=== PATIENT | female | born 1940 | race Caucasian/White ===

== ENCOUNTER 2016-06-21 08:26 | Day surgery (SDC) | payer MEDICARE, OTHER ==
[2016-06-21] MEDS ORDERED: Lactated Ringers 1,000 ML IV SCH (09:00)
[2016-06-21] MEDS ORDERED: fentaNYL 100 MCG/2 ML SDV ONE (09:23)
[2016-06-21] MEDS ORDERED: Propofol 200 MG/20 ML SDV ONE ×2 (09:23→10:39)
[2016-06-21 12:49] VITALS: BP 146/82
--- NOTE | 2016-06-22 07:30 | OR ---
DATE OF PROCEDURE: 06/21/2016 POSTOPERATIVE DIAGNOSES: History of colon polyps. POSTOPERATIVE DIAGNOSIS: Diverticulosis, proximal right colon polyps, history of colon polyps. PROCEDURE PERFORMED: Colonoscopy to the cecum with biopsy resection of sessile proximal right colon polyp and tattoo of site. ANESTHESIA: IV anesthesia with monitored anesthesia care. INDICATION: This 76-year-old white female is here for a colonoscopy because of a history of colon polyps. She says her last colonoscopic exam was done three years ago. I counseled her for a colonoscopy with possible biopsy and/or polypectomy including risks and alternatives, and she gave her informed consent to proceed. DESCRIPTION OF PROCEDURE: The patient was placed in the left lateral decubitus position. IV anesthesia was administered by the Anesthesia Service. Time-out was held. A rectal exam was performed, which was unremarkable. The flexible video Olympus colonoscope was introduced through her anus, up her rectum, and out her colon all the way to the cecum. In the proximal right colon, we saw a sessile polyp. We used a biopsy forceps to remove much of it. We then tattooed the area with Keena ink. The scope was then slowly withdrawn examining the mucosa throughout. No additional mucosal abnormalities were noted. The scope was retroflexed in the rectum with the distal rectum appearing unremarkable save for some hemorrhoidal tissue. The scope was straightened and removed. She tolerated the procedure well. Narinder Gonsalez MD /[id number] [facility]
== END 2016-06-21 12:50 | disposition home or self-care (01) ==
LOC: JP.SDS 08:26
PROVIDERS: ATTEND Surgery
DX: Z12.11 Encounter for screening for malignant neoplasm of colon (principal); D12.6 Benign neoplasm of colon, unspecified; J44.9 Chronic obstructive pulmonary disease, unspecified; Z88.0 Allergy status to penicillin; Z88.2 Allergy status to sulfonamides; Z91.040 Latex allergy status
CPT/HCPCS: 45380; 88305; J2704; J3010; J7120

== ENCOUNTER 2017-08-13 20:25 | Emergency (ER) | payer MEDICARE, OTHER ==
--- NOTE | 2017-08-13 20:43 | EDM.PDOC ---
ED HPI GENERAL MEDICAL PROBLEM - General Chief Complaint: Cardiovascular Problem Stated Complaint: ILLNESS Time Seen by Provider: 08/13/17 20:39 Source of Information: Reports: Patient, Family, RN Notes Reviewed History Limitations: Reports: No Limitations - History of Present Illness INITIAL COMMENTS - FREE TEXT/NARRATIVE: 77-year-old female presents to the emergency department today with complaint of abdominal pain she recently underwent and a graphic stent placement for a AAA repair she was discharged from the hospital on Sunday, on Sundays she states she started not feeling well started have fevers headache presents today with severe abdominal pain no nausea or vomiting abdominal pain Pain Score (Numeric/FACES): 5 - Related Data Allergies Allergy/AdvReac Type Severity Reaction Status Date / Time Sulfa (Sulfonamide Allergy Severe Hives Verified 08/13/17 20:50 Antibiotics) hylan G-F 20 [From [employer]] Allergy Intermediate n&v, Verified 08/13/17 20:50 swelling,joint pain,muscle pain Penicillins Allergy Hives Verified 08/13/17 20:50 latex gloves Allergy Rash Uncoded 08/13/17 20:50 Home Meds: Home Meds Albuterol/Ipratropium [Combivent Respimat] 4 gm IH QID 03/04/13 [History] Calcium Carb & Citrate/Vit D3 [Calcium + Vitamin D3 Caplet] 1 each PO DAILY [History] Desoximetasone [Topicort 0.25% Crm] 15 gm TOP BID PRN 03/04/13 [History] Docusate Sodium [Colace] 200 mg PO DAILY 03/04/13 [History] Fluticasone/Salmeterol [Advair 100-50] 1 puff INH BID 03/04/13 [History] Multivit with Calcium,Iron,Min [Therapeutic M] 2 each PO DAILY 03/04/13 [History ] Acetaminophen [Tylenol] 650 mg PO Q4H PRN 01/04/15 [History] Polyethylene Glycol 3350 [MiraLAX] 17 gm PO DAILY PRN 01/04/15 [History] Ciprofloxacin HCl [Cipro] 250 mg PO BID 06/20/16 [History] Diclofenac Sodium [Voltaren 0.1% Ophth Soln] 4 g TOP QID PRN 06/20/16 [History] Past Medical History HEENT History: Reports: Cataract, Impaired Vision, Sinusitis Other HEENT History: wears glasses Cardiovascular History: Reports: Aneurysm Respiratory History: Reports: COPD Gastrointestinal History: Reports: Chronic Constipation, Colon Polyp, Hemorrhoids, Jaundice Genitourinary History: Reports: UTI, Recurrent 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 Oncologic (Cancer) History: Reports: Basal Cell Carcinoma Dermatologic History: Reports: Eczema, Other (See Below) Other Dermatologic History: eczema. Ej Sebastián syndrome - Infectious Disease History Infectious Disease History: Reports: Chicken Pox, Hepatitis A - Past Surgical History HEENT Surgical History: Reports: Cataract Surgery Dermatological Surgical History: Reports: Skin Biopsy Social & Family History - Tobacco Use Smoking Status *Q: Former Smoker Years of Tobacco use: 40 Used Tobacco, but Quit: Yes Month/Year Tobacco Last Used: 04/2003 Second Hand Smoke Exposure: No - Caffeine Use Caffeine Use: Reports: Coffee - Alcohol Use Days Per Week of Alcohol Use: 5 Number of Drinks Per Day: 2 Total Drinks Per Week: 10 - Recreational Drug Use Recreational Drug Use: No ED ROS GENERAL - Review of Systems Review Of Systems: See Below Constitutional: Reports: Fever, Chills HEENT: Reports: No Symptoms Respiratory: Reports: No Symptoms Cardiovascular: Reports: No Symptoms GI/Abdominal: Reports: Abdominal Pain, Flatus. Denies: Nausea, Vomiting : Reports: No Symptoms Musculoskeletal: Reports: No Symptoms Skin: Reports: No Symptoms ED EXAM, GENERAL - Physical Exam Exam: See Below Exam Limited By: No Limitations General Appearance: Alert, Mild Distress Head: Atraumatic, Normocephalic Neck: Normal Inspection, Supple, Non-Tender, Full Range of Motion Respiratory/Chest: No Respiratory Distress, Lungs Clear, Normal Breath Sounds, No Accessory Muscle Use Cardiovascular: Regular Rate, Rhythm, No Murmur GI/Abdominal: Normal Bowel Sounds, Rigid, Tender Course - Vital Signs Last Recorded V/S: Last Vital Signs Temp 97.8 F 08/13/17 22:37 Pulse 68 08/13/17 23:55 Resp 23 H 08/13/17 23:55 BP 147/76 H 08/13/17 23:55 Pulse Ox 95 08/13/17 23:55 - Orders/Labs/Meds Orders: Active Orders 24 hr Category Date Time Status Peripheral IV Care [RC] . DIRECTED Care 08/13/17 20:39 Active Abdomen Pelvis w Cont [CT] Urgent Exams 08/13/17 20:39 Taken Ang Abdomen Aorta w Bi Runoff [CT] Stat Exams 08/13/17 21:57 Taken Iopamidol [Isovue-300 (61%)] Med 08/13/17 20:45 Active 90 ml IV . DIRECTED Iopamidol [Isovue-370 (76%)] Med 08/13/17 23:00 Active 100 ml IV . DIRECTED Lactated Ringers [Ringers, Lactated] 1,000 ml Med 08/13/17 20:45 Active IV ASDIRECTED Sodium Chloride 0.9% [Normal Saline] 100 ml Med 08/13/17 23:00 Active IV ASDIRECTED Sodium Chloride 0.9% [Normal Saline] 80 ml Med 08/13/17 20:45 Active IV ASDIRECTED Sodium Chloride 0.9% [Saline Flush] Med 08/13/17 20:39 Active 10 ml FLUSH ASDIRECTED PRN Peripheral IV Insertion Adult [OM.PC] Urgent Oth 08/13/17 20:39 Ordered Medication Orders Lactated Ringer's (Ringers, Lactated) 1,000 mls @ 500 mls/hr IV ASDIRECTED MARY Sodium Chloride (Normal Saline) 80 mls @ 3 mls/sec IV ASDIRECTED MARY Last Admin: 08/13/17 20:55 Dose: 3 mls/sec Sodium Chloride (Normal Saline) 100 mls @ 3 mls/sec IV ASDIRECTED MARY Iopamidol (Isovue-300 (61%)) 90 ml IV . DIRECTED MARY Last Admin: 08/13/17 20:55 Dose: 90 ml Iopamidol (Isovue-370 (76%)) 100 ml IV . DIRECTED MARY Last Admin: 08/13/17 22:57 Dose: 100 ml Sodium Chloride (Saline Flush) 10 ml FLUSH ASDIRECTED PRN PRN Reason: Keep Vein Open Last Admin: 08/13/17 22:57 Dose: 10 ml Admin: 08/13/17 20:55 Dose: 10 ml Labs: Laboratory Tests 08/13/17 08/13/1718 Range/Units 20:27 20:27 20:27 WBC 10.7 (4.5-11.0) K/uL RBC 3.43 (3.30-5.50) M/uL Hgb 11.7 L (12.0-15.0) g/dL Hct 35.0 L (36.0-48.0) % MCV 102 H (80-98) fL MCH 34 H (27-31) pg MCHC 33 (32-36) % Plt Count 286 (150-400) K/uL Neut % (Auto) 60 (36-66) % Lymph % (Auto) 28 (24-44) % [place] % (Auto) 10 H (2-6) % Eos % (Auto) 2 (2-4) % Baso % (Auto) 0 (0-1) % Sodium 137 L (140-148) mmol/L Potassium 4.0 (3.6-5.2) mmol/L Chloride 102 (100-108) mmol/L Carbon Dioxide 27 (21-32) mmol/L Anion Gap 12.0 (5.0-14.0) mmol/L BUN 18 (7-18) mg/dL Creatinine 1.0 (0.6-1.0) mg/dL Est Cr Clr Drug Dosing 38.84 mL/min Estimated GFR (MDRD) 54 L (>60) Glucose 106 (74-106) mg/dL Lactic Acid 0.8 (0.4-2.0) mmol/L Calcium 8.1 L (8.5-10.1) mg/dL Total Bilirubin 0.6 (0.2-1.0) mg/dL AST 30 (15-37) U/L ALT 20 (12-78) U/L Alkaline Phosphatase 125 H (46-116) U/L Total Protein 6.4 (6.4-8.2) g/dL Albumin 2.7 L (3.4-5.0) g/dL Globulin 3.7 H (2.3-3.5) g/dL Albumin/Globulin Ratio 0.7 L (1.2-2.2) Lipase 178 (73-393) U/L Meds: Medications Generic Name Dose Route Start Last Admin Trade Name Freq PRN Reason Stop Dose Admin Lactated Ringer's 1,000 mls @ 500 mls/hr 08/13/17 20:45 Ringers, Lactated IV ASDIRECTED MARY Sodium Chloride 80 mls @ 3 mls/sec 08/13/17 20:45 08/13/17 20:55 Normal Saline IV 3 mls/sec ASDIRECTED MARY Administration Sodium Chloride 100 mls @ 3 mls/sec 08/13/17 23:00 Normal Saline IV ASDIRECTED MARY Iopamidol 90 ml 08/13/17 20:45 08/13/17 20:55 Isovue-300 (61%) IV 90 ml . DIRECTED MARY Administration Iopamidol 100 ml 08/13/17 23:00 08/13/17 22:57 Isovue-370 (76%) IV 100 ml . DIRECTED MARY Administration Sodium Chloride 10 ml 08/13/17 20:39 08/13/17 22:57 Saline Flush FLUSH 10 ml ASDIRECTED PRN Administration Keep Vein Open Discontinued Medications Generic Name Dose Route Start Last Admin Trade Name Freq PRN Reason Stop Dose Admin Acetaminophen 650 mg 08/14/17 00:25 Tylenol PO 08/14/17 00:26 NOW ONE Departure - Departure Time of Disposition: 01:09 Disposition: DC/Tfer to Acute Hospital 02 Reason for Transfer *Q: Other Condition: Fair Clinical Impression: Abdominal rigidity Qualifiers: Abdominal location: generalized Qualified Code(s): R19.37 - Generalized abdominal rigidity Referrals: Ryan Rodriguez MD [Primary Care Provider] - Forms: ED Department Discharge - My Orders Last 24 Hours: My Active Orders 08/13/17 20:39 Peripheral IV Care [RC] . DIRECTED Abdomen Pelvis w Cont [CT] Urgent Sodium Chloride 0.9% [Saline Flush] 10 ml FLUSH ASDIRECTED PRN Peripheral IV Insertion Adult [OM.PC] Urgent 08/13/17 20:45 Iopamidol [Isovue-300 (61%)] 90 ml IV . DIRECTED Lactated Ringers [Ringers, Lactated] 1,000 ml IV ASDIRECTED Sodium Chloride 0.9% [Normal Saline] 80 ml IV ASDIRECTED 08/13/17 21:57 Ang Abdomen Aorta w Bi Runoff [CT] Stat 08/13/17 23:00 Iopamidol [Isovue-370 (76%)] 100 ml IV . DIRECTED Sodium Chloride 0.9% [Normal Saline] 100 ml IV ASDIRECTED - Assessment/Plan Last 24 Hours: My Active Orders 08/13/17 20:39 Peripheral IV Care [RC] . DIRECTED Abdomen Pelvis w Cont [CT] Urgent Sodium Chloride 0.9% [Saline Flush] 10 ml FLUSH ASDIRECTED PRN Peripheral IV Insertion Adult [OM.PC] Urgent 08/13/17 20:45 Iopamidol [Isovue-300 (61%)] 90 ml IV . DIRECTED Lactated Ringers [Ringers, Lactated] 1,000 ml IV ASDIRECTED Sodium Chloride 0.9% [Normal Saline] 80 ml IV ASDIRECTED 08/13/17 21:57 Ang Abdomen Aorta w Bi Runoff [CT] Stat 08/13/17 23:00 Iopamidol [Isovue-370 (76%)] 100 ml IV . 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 Severino hospitalist on-call at [facility] kindly accept the patient in transport she'll be transported via EMS ground This note was dictated using [employer] voice recognition software please call with any questions on syntax or judith.
[2017-08-13] MEDS ORDERED: Iopamidol 612 MG/ML 100 ML Bottle IV SCH (20:45)
[2017-08-13] MEDS ORDERED: Lactated Ringers 1,000 ML IV SCH (20:45)
[2017-08-13] MEDS ORDERED: Sodium Chloride 0.9% 80 ML IV SCH (20:45)
[2017-08-13] MEDS: Sodium Chloride 0.9% 10 ML Syringe FLUSH PRN ×2 (20:55→22:57)
[2017-08-13] MEDS ORDERED: Iopamidol 755 Mg/ML 100 ML Bottle IV SCH (23:00)
[2017-08-13] MEDS ORDERED: Sodium Chloride 0.9% 100 ML IV SCH (23:00)
[2017-08-13] MEDS ORDERED: Iopamidol 612 MG/ML 150 ML Bottle IV SCH (23:00)
[2017-08-14] MEDS ORDERED: Acetaminophen 325 MG Tab PO ONE (00:25)
[2017-08-14 01:39] VITALS: BP 146/76
== END 2017-08-14 01:45 ==
LOC: JP.ED 20:25
DX: R19.37 Generalized abdominal rigidity (principal); Z87.891 Personal history of nicotine dependence; J44.9 Chronic obstructive pulmonary disease, unspecified; Z79.899 Other long term (current) drug therapy; Z88.2 Allergy status to sulfonamides; Z88.0 Allergy status to penicillin; Z91.040 Latex allergy status
CPT/HCPCS: 36415; 74177; 75635; 80053; 83605; 83690; 85025; 99285; A9270; J7030; J7050; Q9967; 93005; 93010

== ENCOUNTER 2017-11-26 14:50 | Emergency (ER) | payer MEDICARE, OTHER ==
--- NOTE | 2017-11-26 17:08 | EDM.PDOC ---
ED HPI GENERAL MEDICAL PROBLEM - General Chief Complaint: Headache Stated Complaint: SINUS INFECTION Time Seen by Provider: 11/26/17 15:40 Source of Information: Reports: Patient, Family History Limitations: Reports: No Limitations - History of Present Illness INITIAL COMMENTS - FREE TEXT/NARRATIVE: 77-year-old female with a headache for the past 3 weeks, photophobia and malaise. No fevers or chills, no nausea or vomiting. No neurologic symptoms such as paresthesias or weakness. She was seen in the clinic 5 days ago and was treated for presumptive sinusitis with Levaquin daily, has 2 doses left but is not getting better. No shortness of breath or cough, no cold symptoms, allergies , GI symptoms or peripheral edema. She is mostly sore over the frontal area of the head and temporal areas, worse on the right. No visual loss. Onset: Gradual (Over the past 3 weeks) Location: Reports: Head Severity: Moderate headache Pain Score (Numeric/FACES): 8 - Related Data Allergies Allergy/AdvReac Type Severity Reaction Status Date / Time Sulfa (Sulfonamide Allergy Severe Hives Verified 10/10/17 10:24 Antibiotics) hylan G-F 20 [From [employer]] Allergy Intermediate n&v, Verified 10/10/17 10:24 swelling,joint pain,muscle pain Penicillins Allergy Hives Verified 10/10/17 10:24 latex gloves Allergy Rash Uncoded 10/10/17 10:24 Home Meds: Home Meds Albuterol/Ipratropium [Combivent Respimat] 1 dose IH QID 03/04/13 [History] Calcium Carb & Citrate/Vit D3 [Calcium + Vitamin D3 Caplet] 1 tab PO DAILY 03/04 [History] Desoximetasone [Topicort 0.25% Crm] 1 applic TOP BID PRN 03/04/13 [History] Fluticasone/Salmeterol [Advair 100-50] 1 puff INH BID 03/04/13 [History] Multivit with Calcium,Iron,Min [Therapeutic M] 2 each PO DAILY 03/04/13 [History ] Polyethylene Glycol 3350 [MiraLAX] 17 gm PO DAILY PRN 01/04/15 [History] Diclofenac Sodium [Voltaren 0.1% Ophth Soln] 1 applic TOP QID PRN 06/20/16 [ History] Acetaminophen [Tylenol Extra Strength] 1,000 mg PO Q6H PRN 11/26/17 [History] Levofloxacin 500 mg PO DAILY 11/26/17 [History] Past Medical History HEENT History: Reports: Cataract, Impaired Vision, Sinusitis, Other (See Below) Other HEENT History: wears glasses, seasonal allergies Cardiovascular History: Reports: Aneurysm Respiratory History: Reports: COPD Gastrointestinal History: Reports: Chronic Constipation, Colon Polyp, Hemorrhoids, Jaundice, Other (See Below) Other Gastrointestinal History: hepatitis over40 years ago when Genitourinary History: Reports: UTI, Recurrent 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 Oncologic (Cancer) History: Reports: Basal Cell Carcinoma Dermatologic History: Reports: Eczema, Other (See Below) Other Dermatologic History: eczema. Ej Sebastián syndrome - Infectious Disease History Infectious Disease History: Reports: Chicken Pox, Hepatitis A - Past Surgical History HEENT Surgical History: Reports: Cataract Surgery Cardiovascular Surgical History: Reports: Aneurysm Other Cardiovascular Surgeries/Procedures: aueurysm surgery end July 2017 Dermatological Surgical History: Reports: Skin Biopsy Social & Family History - Family History Family Medical History: Noncontributory - Tobacco Use Smoking Status *Q: Former Smoker Used Tobacco, but Quit: No Second Hand Smoke Exposure: No - Caffeine Use Caffeine Use: Reports: Coffee - Recreational Drug Use Recreational Drug Use: No ED ROS GENERAL - Review of Systems Review Of Systems: See Below Constitutional: Denies: Fever, Chills HEENT: Reports: Other (Photophobia) Respiratory: Denies: Shortness of Breath, Cough Cardiovascular: Denies: Chest Pain GI/Abdominal: Denies: Abdominal Pain, Nausea, Vomiting : Reports: No Symptoms Musculoskeletal: Reports: Back Pain (She has chronic back pain from spinal stenosis) Skin: Denies: Bruising - Physical Exam Exam: See Below Exam Limited By: No Limitations General Appearance: Alert, No Apparent Distress Eye Exam: Bilateral Eye: EOMI, PERRL, Other (She does have photophobia bilaterally) Throat/Mouth: Normal Inspection Head Exam: Other (She is very tender to palpation over the temporal areas of the scalp, especially on the right side.) Neck: Supple Respiratory/Chest: No Respiratory Distress, Lungs Clear Neuro Exam (Abbreviated): Alert, Oriented, Normal Cognition, No Motor/Sensory Deficits Psychiatric: Normal Affect, Normal Mood Skin Exam: Warm, Dry Course - Vital Signs Last Recorded V/S: Last Vital Signs Temp 97.8 F 11/26/17 18:10 Pulse 75 11/26/17 18:10 Resp 16 11/26/17 18:10 BP 142/95 H 11/26/17 18:10 Pulse Ox 95 11/26/17 15:03 - Orders/Labs/Meds Orders: Active Orders 24 hr Category Date Time Status Head wo Cont [CT] Stat Exams 11/26/17 16:17 Taken Labs: Laboratory Tests 11/26/17 11/26/17 Range/Units 16:33 16:33 WBC 7.6 (4.5-11.0) K/uL RBC 3.89 (3.30-5.50) M/uL Hgb 12.9 (12.0-15.0) g/dL Hct 39.3 (36.0-48.0) % MCV 101 H (80-98) fL MCH 33 H (27-31) pg MCHC 33 (32-36) % Plt Count 356 (150-400) K/uL Neut % (Auto) 45 (36-66) % Lymph % (Auto) 41 (24-44) % [place] % (Auto) 10 H (2-6) % Eos % (Auto) 3 (2-4) % Baso % (Auto) 1 (0-1) % ESR 50 H (0-25) mm/hr Sodium 136 L (140-148) mmol/L Potassium 4.0 (3.6-5.2) mmol/L Chloride 100 (100-108) mmol/L Carbon Dioxide 27 (21-32) mmol/L Anion Gap 13.0 (5.0-14.0) mmol/L BUN 19 H (7-18) mg/dL Creatinine 1.1 H (0.6-1.0) mg/dL Est Cr Clr Drug Dosing 34.20 mL/min Estimated GFR (MDRD) 48 L (>60) Glucose 87 (74-106) mg/dL Calcium 9.1 (8.5-10.1) mg/dL - Re-Assessments/Exams Free Text/Narrative Re-Assessment/Exam: 11/26/17 17:56 CBC, BMP and sedimentation rate were obtained. 11/26/17 17:56 CT the head without contrast was also obtained. This showed no acute findings, including no evidence of sinusitis. CBC and BMP were relatively normal, sedimentation rate was 50. I think with the symptoms and the localized tenderness over the temporal areas, temporal arteritis needs to be considered. She'll be started on a Medrol Dosepak because she refused to take prednisone from her previous side effect. I discussed her case with Dr. Shah, he will do a temporal artery biopsy tomorrow. Departure - Departure Time of Disposition: 18:20 Disposition: Home, Self-Care 01 Condition: Good Clinical Impression: Arteritis - Discharge Information Instructions: Temporal Artery Biopsy, Temporal Arteritis Referrals: PCP,None [Primary Care Provider] - Forms: ED Department Discharge Care Plan Goals: Finish Levaquin, start Medrol Dosepak as directed and return tomorrow (Sunday at 8:00 am) for a temporal artery biopsy as discussed. Future care will be dependent on the artery biopsy result and your response to the medication. - My Orders Last 24 Hours: My Active Orders 11/26/17 16:17 Head wo Cont [CT] Stat - Assessment/Plan Last 24 Hours: My Active Orders 11/26/17 16:17 Head wo Cont [CT] Stat
[2017-11-26 18:17] VITALS: BP 142/95
== END 2017-11-26 18:21 | disposition home or self-care (01) ==
LOC: JP.ED 14:50
DX: I77.6 Arteritis, unspecified (principal); Z88.0 Allergy status to penicillin; Z88.2 Allergy status to sulfonamides; Z91.040 Latex allergy status; Z79.899 Other long term (current) drug therapy; Z87.891 Personal history of nicotine dependence
CPT/HCPCS: 36415; 70450; 80048; 85025; 85651; 99284-25

== ENCOUNTER 2017-11-27 08:06 | Day surgery (SDC) | payer MEDICARE, OTHER ==
[2017-11-27] MEDS ORDERED: Midazolam 1 MG/ML 2 ML SDV ONE (08:11)
[2017-11-27] MEDS ORDERED: fentaNYL 100 MCG/2 ML SDV ONE (08:11)
[2017-11-27] MEDS ORDERED: Propofol 200 MG/20 ML SDV ONE ×2 (08:12→10:36)
[2017-11-27] MEDS ORDERED: Acetaminophen 500 MG Tab PO ONE (08:26)
[2017-11-27] MEDS ORDERED: Dextrose 5%-Lactated Ringers 1,000 ML IV SCH (08:30)
[2017-11-27] MEDS ORDERED: Bacitracin Oint 1 GM U/D Packet ONE (09:43)
[2017-11-27] MEDS: Lidocaine 1% with EPINEPHrine 1:100,000 50 ML MDV ONE ×2 (10:17→10:29)
[2017-11-27 12:12] VITALS: BP 132/77
--- NOTE | 2017-11-28 15:40 | OR ---
DATE OF PROCEDURE: 11/27/2017 PREOPERATIVE DIAGNOSIS: Rule out temporal arteritis. POSTOPERATIVE DIAGNOSIS: Rule out temporal arteritis. OPERATIVE PROCEDURE: Bilateral temporal artery biopsies ([id number] [id number]). ANESTHESIA: Local plus IV sedation. INDICATION FOR PROCEDURE: This 77-year-old is presenting with significant pain in the anabaptist areas radiating toward the eyes with some subtle visual changes and elevated sedimentation rate. Given this, she was referred for temporal artery biopsies. She was started on some steroids per emergency room. She will be following up then with Miri Baumann this Sunday in [facility] to review the pathology and continue the steroid treatment if necessary, should the arteritis biopsies be positive. The potential risks of the procedure including bleeding and infection were reviewed, and the patient wishes to proceed. DETAILS OF PROCEDURE: The patient was taken to the operating room and after being placed in a supine position, IV sedation was administered. The temporal arteries from just above the area, inferolaterally, were then marked out, prepped and draped, and anesthetized with 1% lidocaine mixed with Marcaine. On each side, linear incisions 3 to 4 cm were made and carried down through the skin and subcutaneous tissue. The temporal artery was then identified. On the right side, there was significant branching and specimen came out in 3 pieces, but overall, the length was around 4 cm. On the left side, the artery was more intact and, again, around 4 cm of arterial length was obtained. The remaining ends were suture ligated with 4-0 Vicryl suture. Incisions were closed with 4-0 Vicryl stitch deep and a 5-0 Vicryl subcuticular stitch. Surgical glue was then applied. There were no evident complications. The patient was taken to the recovery room in a satisfactory condition. As reviewed with the patient and family, she will continue the steroid dosing today. She is set up for followup with Miri Baumann in [facility] this Sunday afternoon. Luis Angel Shah MD /[id number]
== END 2017-11-27 12:55 | disposition home or self-care (01) ==
LOC: JP.SDS 08:06
PROVIDERS: ATTEND Surgery
DX: M31.6 Other giant cell arteritis (principal); J44.9 Chronic obstructive pulmonary disease, unspecified; Z88.2 Allergy status to sulfonamides; Z88.0 Allergy status to penicillin; Z91.040 Latex allergy status
CPT/HCPCS: 37609; A9270; J2250; J2704; J3010; J7042; J7050; S0077

== ENCOUNTER 2018-08-21 12:50 | Outpatient (CLI) | payer MEDICARE, OTHER ==
[~2018-08-21 12:50] MED LIST: methylPREDNISolone Acetate 80 MG/ML SDV ONE
[2018-08-21 13:52] VITALS: BP 138/95; PULSE 87
--- NOTE | 2018-08-21 14:43 | ANES ---
DATE OF SERVICE: 08/21/2018 INDICATIONS: Lori is a 78-year-old female patient referred to us by Dr. Sinclair for epidural steroid injections. Lori has had them in the past and is well aware of the risks and benefits and wishes to proceed with the KRUPA today. Please refer to the doctor's notes for diagnosis and ICD-10 code. TECHNIQUE: Lori was then sat at the edge of the bed. Betadine prep x3 to the lumbar region was done. Sterile drape was placed. Lidocaine skin wheal and deep was done. A 17- gauge Tuohy needle was inserted at approximately the L5-S1 position. Loss of resistance was achieved. Negative paresthesia, negative heme, and negative CSF were noted. I then proceeded to give 7 mL of sterile normal saline with 1 mL of 80 mg Depo-Medrol. No local anesthetic was used with Lori because she has a history of leg numbness after ESIs. Tuohy needle was then flushed and withdrawn. Sterile drape was taken down. Betadine was cleaned off her back and a Band-Aid was applied to the puncture site for hemostasis. The patient tolerated the procedure without difficulty. Please refer to the nurse's notes for vital signs. After the appropriate amount of time, patient was discharged per ACU protocol. René Dennis CRNA /[id number]
== END 2018-08-21 13:55 | disposition home or self-care (01) ==
LOC: JP.PAIN 12:50
PROVIDERS: ATTEND Family Medicine
DX: M48.062 Spinal stenosis, lumbar region with neurogenic claudication (principal)
CPT/HCPCS: 62322; J1040

== ENCOUNTER 2019-01-31 19:18 | Emergency (ER) | payer MEDICARE, OTHER ==
[2019-01-31 20:06] VITALS: BP 151/91; PULSE 87
[2019-01-31] MEDS ORDERED: Ketorolac 30 MG/ML SDV IM ONE (20:33)
--- NOTE | 2019-01-31 20:36 | EDM.PDOC ---
ED HPI GENERAL MEDICAL PROBLEM - General Chief Complaint: Upper Extremity Injury/Pain Stated Complaint: PAIN NOT AN ACCIDENT Time Seen by Provider: 01/31/19 19:52 Source of Information: Reports: Patient, Family, RN Notes Reviewed History Limitations: Reports: No Limitations - History of Present Illness INITIAL COMMENTS - FREE TEXT/NARRATIVE: 78-year-old female presents emergency department today with pain in her left shoulder, pain is developed per family over the last 24 hours she denies any trauma she is also developed a fever this evening. She denies any nausea vomiting shortness breath chest pain no or GI symptoms, does have a history of temporal arteritis recently finished her prednisone course - Related Data Allergies Allergy/AdvReac Type Severity Reaction Status Date / Time Sulfa (Sulfonamide Allergy Severe Hives Verified 01/22/19 12:55 Antibiotics) hylan G-F 20 [From [employer] Allergy Intermediate n&v, Verified 01/22/19 12:55 swelling,joint pain,muscle pain Penicillins Allergy Hives Verified 01/22/19 12:55 latex gloves Allergy Rash Uncoded 01/22/19 12:55 Home Meds: Home Meds Calcium Carb & Citrate/Vit D3 [Calcium + Vitamin D3 Caplet] 1 tab PO DAILY 03/04 [History] Fluticasone/Salmeterol [Advair 100-50] 1 puff INH BID 03/04/13 [History] Multivit with Calcium,Iron,Min [Therapeutic M] 1 tab PO DAILY 03/04/13 [History] Polyethylene Glycol 3350 [MiraLAX] 17 gm PO DAILY PRN 01/04/15 [History] Acetaminophen [Tylenol Extra Strength] 1,000 mg PO Q6H PRN 11/26/17 [History] Albuterol/Ipratropium [Combivent Respimat] 1 inhalation IH QID 08/21/18 [History ] Docusate Sodium [DOK] 100 mg PO DAILY 08/21/18 [History] Omeprazole Magnesium [Prilosec Otc] 20 mg PO BID 08/21/18 [History] Vit A/Vit C/Vit E/Zinc/Copper [Preservision] 2 tab PO BID 08/21/18 [History] Vit C/E/Zn/Coppr/Lutein/Zeaxan [Preservision Areds 2 Softgel] 1 each PO BID 11/01 [History] Past Medical History HEENT History: Reports: Cataract, Impaired Vision, Sinusitis, Other (See Below) Other HEENT History: wears glasses, seasonal allergies Cardiovascular History: Reports: Aneurysm Respiratory History: Reports: COPD Gastrointestinal History: Reports: Chronic Constipation, Colon Polyp, Hemorrhoids, Jaundice, Other (See Below) Other Gastrointestinal History: hepatitis over40 years ago when Genitourinary History: Reports: UTI, Recurrent [employer] History: Reports: Musculoskeletal History: Reports: Arthritis, Back Pain, Chronic, Neck Pain, Chronic, Osteoarthritis, Other (See Below) Other Musculoskeletal History: lumbar stenosis Endocrine/Metabolic History: Reports: Osteoporosis Immunologic History: Reports: Other (See Below) Other Immunologic History: Ej-Sebastián syndrome. Oncologic (Cancer) History: Reports: Basal Cell Carcinoma Dermatologic History: Reports: Eczema, Other (See Below) Other Dermatologic History: eczema. Ej Sebastián syndrome - Infectious Disease History Infectious Disease History: Reports: Other (See Below) Other Infectious Disease History: Hepatitis unknown type - Past Surgical History HEENT Surgical History: Reports: Cataract Surgery Cardiovascular Surgical History: Reports: Aneurysm Other Cardiovascular Surgeries/Procedures: aueurysm surgery end of July 2017 GI Surgical History: Reports: Colonoscopy, EGD, Other (See Below) Other GI Surgeries/Procedures: Abdominal aneurysm July 2017 Female Surgical History: Reports: None Endocrine Surgical History: Reports: None Neurological Surgical History: Reports: C-Spine Musculoskeletal Surgical History: Reports: None Oncologic Surgical History: Reports: None Dermatological Surgical History: Reports: Skin Biopsy Social & Family History - Family History Family Medical History: Noncontributory - Tobacco Use Smoking Status *Q: Never Smoker - Caffeine Use Caffeine Use: Reports: Coffee - Alcohol Use Days Per Week of Alcohol Use: 7 Number of Drinks Per Day: 1 Total Drinks Per Week: 7 - Recreational Drug Use Recreational Drug Use: No Review of Systems - Review of Systems Review Of Systems: See Below Constitutional: Reports: Fever Eyes: Reports: No Symptoms Ears: Reports: No Symptoms Nose: Reports: No Symptoms Mouth/Throat: Reports: No Symptoms Respiratory: Reports: No Symptoms Cardiovascular: Reports: No Symptoms GI/Abdominal: Reports: No Symptoms Genitourinary: Reports: No Symptoms Musculoskeletal: Reports: Shoulder Pain Skin: Reports: No Symptoms Neurological: Reports: Numbness (Distal fingertips), Tingling ED EXAM, GENERAL - Physical Exam Exam: See Below Exam Limited By: No Limitations General Appearance: Alert, WD/WN, No Apparent Distress Head: Atraumatic, Normocephalic Neck: Normal Inspection, Supple, Non-Tender, Full Range of Motion Respiratory/Chest: No Respiratory Distress, Lungs Clear, Normal Breath Sounds, No Accessory Muscle Use, Chest Non-Tender Cardiovascular: Regular Rate, Rhythm, No Murmur GI/Abdominal: Soft, Non-Tender Extremities: Normal Inspection, Other (Tenderness to palpation anywhere along the shoulder clavicle and up into the neck lateral aspect left side) Course - Vital Signs Last Recorded V/S: Last Vital Signs Temp 100.7 F H 01/31/19 20:03 Pulse 87 01/31/19 20:03 Resp 16 01/31/19 20:03 BP 151/91 H 01/31/19 20:03 Pulse Ox 95 01/31/19 20:03 - Orders/Labs/Meds Orders: Active Orders 24 hr Category Date Time Status Peripheral IV Care [RC] . DIRECTED Care 01/31/19 22:02 Active Iopamidol [Isovue-370 (76%)] Med 01/31/19 22:15 Active 100 ml IV . DIRECTED Sodium Chloride 0.9% [Normal Saline] 1,000 ml Med 01/31/19 22:15 Active IV ASDIRECTED Sodium Chloride 0.9% [Normal Saline] 100 ml Med 01/31/19 22:15 Active IV ASDIRECTED Sodium Chloride 0.9% [Saline Flush] Med 01/31/19 22:02 Active 10 ml FLUSH ASDIRECTED PRN Peripheral IV Insertion Adult [OM.PC] Urgent Oth 01/31/19 22:02 Ordered Medication Orders Sodium Chloride (Normal Saline) 1,000 mls @ 500 mls/hr IV ASDIRECTED MARY Last Admin: 01/31/19 22:39 Dose: 500 mls/hr Sodium Chloride (Normal Saline) 100 mls @ 3 mls/sec IV ASDIRECTED MARY Last Admin: 01/31/19 22:41 Dose: 3 mls/sec Iopamidol (Isovue-370 (76%)) 100 ml IV . DIRECTED MARY Last Admin: 01/31/19 22:40 Dose: 100 ml Sodium Chloride (Saline Flush) 10 ml FLUSH ASDIRECTED PRN PRN Reason: Keep Vein Open Last Admin: 01/31/19 22:41 Dose: 10 ml Labs: Laboratory Tests 01/31/19 01/31/19 01/31/19 Range/Units 20:33 20:41 20:41 WBC 11.3 H (4.5-11.0) K/uL RBC 3.82 (3.30-5.50) M/uL Hgb 12.7 (12.0-15.0) g/dL Hct 39.2 (36.0-48.0) % MCV 103 H (80-98) fL MCH 33 H (27-31) pg MCHC 32 (32-36) % Plt Count 340 (150-400) K/uL Neut % (Auto) 68 H (36-66) % Lymph % (Auto) 22 L (24-44) % [place] % (Auto) 9 H (2-6) % Eos % (Auto) 1 L (2-4) % Baso % (Auto) 0 (0-1) % ESR 56 H (0-25) mm/hr D-Dimer, Quantitative 2060 H (0.0-400.0) ng/mL Sodium (140-148) mmol/L Potassium (3.6-5.2) mmol/L Chloride (100-108) mmol/L Carbon Dioxide (21-32) mmol/L Anion Gap (5.0-14.0) mmol/L BUN (7-18) mg/dL Creatinine (0.6-1.0) mg/dL Est Cr Clr Drug Dosing mL/min Estimated GFR (MDRD) (>60) Glucose (74-106) mg/dL Calcium (8.5-10.1) mg/dL Total Bilirubin (0.2-1.0) mg/dL AST (15-37) U/L ALT (12-78) U/L Alkaline Phosphatase (46-116) U/L Troponin I (0.000-0.056) ng/mL Total Protein (6.4-8.2) g/dL Albumin (3.4-5.0) g/dL Globulin (2.3-3.5) g/dL Albumin/Globulin Ratio (1.2-2.2) Lipase (73-393) U/L Urine Color (YELLOW) Urine Appearance (CLEAR) Urine pH (5.0-8.0) Ur Specific [place] (1.008-1.030) Urine Protein (NEGATIVE) mg/dL Urine Glucose (UA) (NEGATIVE) mg/dL Urine Ketones (NEGATIVE) mg/dL Urine Occult Blood (NEGATIVE) Urine Nitrite (NEGATIVE) Urine Bilirubin (NEGATIVE) Urine Urobilinogen (0.2-1.0) EU/dL Ur Leukocyte Esterase (NEGATIVE) Urine RBC (0-5) Urine WBC (0-5) Ur Epithelial Cells Amorphous Sediment Urine Bacteria Urine Mucus 01/31/19 01/31/19 Range/Units 20:41 21:08 WBC (4.5-11.0) K/uL RBC (3.30-5.50) M/uL Hgb (12.0-15.0) g/dL Hct (36.0-48.0) % MCV (80-98) fL MCH (27-31) pg MCHC (32-36) % Plt Count (150-400) K/uL Neut % (Auto) (36-66) % Lymph % (Auto) (24-44) % [place] % (Auto) (2-6) % Eos % (Auto) (2-4) % Baso % (Auto) (0-1) % ESR (0-25) mm/hr D-Dimer, Quantitative (0.0-400.0) ng/mL Sodium 140 (140-148) mmol/L Potassium 4.2 (3.6-5.2) mmol/L Chloride 103 (100-108) mmol/L Carbon Dioxide 28 (21-32) mmol/L Anion Gap 9.0 (5.0-14.0) mmol/L BUN 24 H (7-18) mg/dL Creatinine 1.0 (0.6-1.0) mg/dL Est Cr Clr Drug Dosing 38.22 mL/min Estimated GFR (MDRD) 53 L (>60) Glucose 102 (74-106) mg/dL Calcium 9.1 (8.5-10.1) mg/dL Total Bilirubin 0.6 (0.2-1.0) mg/dL AST 19 (15-37) U/L ALT 15 (12-78) U/L Alkaline Phosphatase 97 (46-116) U/L Troponin I < 0.017 (0.000-0.056) ng/mL Total Protein 7.3 (6.4-8.2) g/dL Albumin 3.2 L (3.4-5.0) g/dL Globulin 4.1 H (2.3-3.5) g/dL Albumin/Globulin Ratio 0.8 L (1.2-2.2) Lipase 276 (73-393) U/L Urine Color Yellow (YELLOW) Urine Appearance Clear (CLEAR) Urine pH 7.5 (5.0-8.0) Ur Specific [place] 1.020 (1.008-1.030) Urine Protein Negative (NEGATIVE) mg/dL Urine Glucose (UA) Negative (NEGATIVE) mg/dL Urine Ketones Negative (NEGATIVE) mg/dL Urine Occult Blood Negative (NEGATIVE) Urine Nitrite Negative (NEGATIVE) Urine Bilirubin Negative (NEGATIVE) Urine Urobilinogen 0.2 (0.2-1.0) EU/dL Ur Leukocyte Esterase Negative (NEGATIVE) Urine RBC 0-5 (0-5) Urine WBC 0-5 (0-5) Ur Epithelial Cells Few Amorphous Sediment Not seen Urine Bacteria Few Urine Mucus Not seen Meds: Medications Generic Name Dose Route Start Last Admin Trade Name Freq PRN Reason Stop Dose Admin Sodium Chloride 1,000 mls @ 500 mls/hr 01/31/19 22:15 01/31/19 22:39 Normal Saline IV 500 mls/hr ASDIRECTED MARY Administration Sodium Chloride 100 mls @ 3 mls/sec 01/31/19 22:15 01/31/19 22:41 Normal Saline IV 3 mls/sec ASDIRECTED MARY Administration Iopamidol 100 ml 01/31/19 22:15 01/31/19 22:40 Isovue-370 (76%) IV 100 ml . DIRECTED MARY Administration Sodium Chloride 10 ml 01/31/19 22:02 01/31/19 22:41 Saline Flush FLUSH 10 ml ASDIRECTED PRN Administration Keep Vein Open Discontinued Medications Generic Name Dose Route Start Last Admin Trade Name Freq PRN Reason Stop Dose Admin Ketorolac Tromethamine 30 mg 01/31/19 20:33 01/31/19 20:43 Toradol IM 01/31/19 20:34 30 mg ONETIME ONE Administration Departure - Departure Time of Disposition: 23:37 Disposition: Home, Self-Care 01 Condition: Poor Clinical Impression: Lung nodule < 6cm on CT, Adhesive capsulitis of left shoulder - Discharge Information Instructions: Adhesive Capsulitis, Pulmonary Nodule Referrals: Lin Sinclair MD [Primary Care Provider] - Forms: ED Department Discharge Additional Instructions: Please call to the assented clinic in the morning for follow-up appointment with Dr. Sinclair, recommend consultation with interventional radiology for a needle biopsy of the lung mass. Also consider consultation with orthopedics for the possibility of frozen shoulder or adhesive capsulitis, try the ibuprofen as needed for pain control - My Orders Last 24 Hours: My Active Orders 01/31/19 22:02 Peripheral IV Care [RC] . DIRECTED Sodium Chloride 0.9% [Saline Flush] 10 ml FLUSH ASDIRECTED PRN Peripheral IV Insertion Adult [OM.PC] Urgent 01/31/19 22:15 Iopamidol [Isovue-370 (76%)] 100 ml IV . DIRECTED Sodium Chloride 0.9% [Normal Saline] 1,000 ml IV ASDIRECTED Sodium Chloride 0.9% [Normal Saline] 100 ml IV ASDIRECTED - Assessment/Plan Last 24 Hours: My Active Orders 01/31/19 22:02 Peripheral IV Care [RC] . DIRECTED Sodium Chloride 0.9% [Saline Flush] 10 ml FLUSH ASDIRECTED PRN Peripheral IV Insertion Adult [OM.PC] Urgent 01/31/19 22:15 Iopamidol [Isovue-370 (76%)] 100 ml IV . 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 Etiology = unknown Manifestations = pain Location of injury = Home Lab values = shoulder x-ray shows mild amount arthritis blood work CBC CMP urinalysis unremarkable troponin was negative sedimentation rate elevated at 59 of unclear significance d-dimer elevated 2059 CT scan shows no pulmonary embolism however there is a 1.3 cm lung mass upper lobe spiculated nodule concern for malignancy Plan I did review CT scan with them she had some relief from the Toradol injection provided for pain, prescription written for ibuprofen 600 mg by mouth 4 times a day total #30 consult was written for her primary care follow-up on Sunday recommend consultation with interventional radiology as well as probable consultation with orthopedics for shoulder issues This note was dictated using dragon voice recognition software please call with any questions on syntax or grammar.
--- NOTE | 2019-01-31 21:19 | CRLCR ---
INDICATION: Pain with ounce trauma. COMPARISON: None available. FINDINGS: The left shoulder was examined with AP internal and external rotation and outlet views for a total of three views. The osseous structures are in anatomic alignment without fracture or dislocation. There is anatomic alignment of the humeral head and glenoid. There is mild primary osteoarthritis of the glenohumeral articulation. There is mild calcification of the lateral supraspinatus tendon consistent with calcific supraspinatus tendonitis. The visualized chest is clear. 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 Mild calcific supraspinatus tendonitis. Dictated by Samy Melendez MD @ Jan 31 2019 9:16PM Signed by Dr. Samy Melendez @ Jan 31 2019 9:17PM
[2019-01-31] MEDS ORDERED: Sodium Chloride 0.9% 10 ML Syringe FLUSH PRN (22:02)
[2019-01-31] MEDS ORDERED: Iopamidol 755 Mg/ML 100 ML Bottle IV SCH (22:15)
[2019-01-31] MEDS ORDERED: Sodium Chloride 0.9% 1,000 ML IV SCH (22:15)
[2019-01-31] MEDS ORDERED: Sodium Chloride 0.9% 100 ML IV SCH (22:15)
--- NOTE | 2019-01-31 23:11 | CRLCT ---
INDICATION: Left shoulder chest pain, elevated D-dimer TECHNIQUE: CT chest with i.v. contrast using pulmonary angiographic technique. Coronal and sagittal reformats were obtained. CONTRAST: 100 mL Isovue 370 COMPARISON: None FINDINGS: Cardiovascular: The pulmonary arteries are unremarkable in enhancement with no evidence of acute pulmonary embolism. The heart has an unremarkable appearance and size. Ectasia of the ascending aorta is noted measuring 3.7 cm in maximal short axis diameter. Mediastinum: No mass or adenopathy seen. Lung: There is a spiculated nodule in the posterior left upper lobe measuring 1.3 cm with a pleural tag extending to the posterior pleural surface. A 2nd nodule is noted measuring 8 mm on image 55. Mild pleural parenchymal scarring is seen in the apices with mild centrilobular emphysema. Partial segmental atelectasis in the lateral right middle lobe is noted. Pleura and pericardium: See above. No significant pericardial effusion is present. Chest wall and axilla: No mass or adenopathy seen. Bone: Unremarkable for age. Upper abdomen: Unremarkable. IMPRESSIONS: 1. No CT evidence of acute pulmonary emboli seen. 2. There is a spiculated nodule in the posterior left upper lobe measuring 1.3 cm with a pleural tag extending to the posterior pleural surface. A 2nd nodule is noted measuring 8 mm on image 55. Findings are suspicious for synchronous pulmonary malignancies and further evaluation with biopsy is recommended. The findings were discussed with Officer at 11:07 PM. Dictated by Geo Nobles MD @ 01/31/2019 11:05:02 PM Please note that all CT scans at this facility use dose modulation, iterative reconstruction, and/or weight-based dosing when appropriate to reduce radiation dose to as low as reasonably achievable. Dictated by: Geo Nobles MD @ 01/31/2019 23:10:18 (Electronically Signed)
== END 2019-02-01 00:04 | disposition home or self-care (01) ==
LOC: JP.ED 19:18
DX: M75.02 Adhesive capsulitis of left shoulder (principal); R91.1 Solitary pulmonary nodule; J44.9 Chronic obstructive pulmonary disease, unspecified; M19.90 Unspecified osteoarthritis, unspecified site; Z88.2 Allergy status to sulfonamides; Z88.8 Allergy status to other drugs, medicaments and biological substances; Z88.0 Allergy status to penicillin; Z91.040 Latex allergy status; Z79.899 Other long term (current) drug therapy
CPT/HCPCS: 36415; 71275; 73030; 80053; 81001; 83690; 84484; 85025; 85379; 85651; 96360; 96372; 99283; 99284; J1885; J7030; Q9967

== ENCOUNTER 2019-02-17 12:10 | Emergency (ER) | payer MEDICARE, OTHER ==
[2019-02-17] MEDS ORDERED: Albuterol/Ipratropium 3.0-0.5 MG/3 ML Neb Soln NEB ONE (12:57)
--- NOTE | 2019-02-17 12:58 | EDM.PDOC ---
ED HPI GENERAL MEDICAL PROBLEM - General Chief Complaint: Upper Extremity Injury/Pain Stated Complaint: RT HAND SWOLLEN Time Seen by Provider: 02/17/19 12:45 Source of Information: Reports: Patient, Family, Old Records, RN Notes Reviewed History Limitations: Reports: No Limitations - History of Present Illness INITIAL COMMENTS - FREE TEXT/NARRATIVE: 78-year-old female presents emergency department today complaint of red painful right wrist, she was just in the emergency department approximately 2 weeks ago at that time complaint of shortness of breath evaluation underwent PE study which showed lung nodules concern for malignancy she has established with oncology and is set for needle biopsy in the next coming week. She presented to her primary care 1 week ago with a left wrist was swollen red and hot treated with prednisone had good improvement has been off prednisone now for 5 days also has a remote history of temporal arteritis with treatment of long-term prednisone. This particular event she started noticing pain in her wrist that developed over the last 3 days. She was initially evaluated by her primary care sent over from clinic for evaluation. Right Hand Pain Score (Numeric/FACES): 10 - Related Data Allergies Allergy/AdvReac Type Severity Reaction Status Date / Time Sulfa (Sulfonamide Allergy Severe Hives Verified 02/17/19 12:36 Antibiotics) hylan G-F 20 [From [place]] Allergy Intermediate n&v, Verified 02/17/19 12:36 swelling,joint pain,muscle pain Penicillins Allergy Hives Verified 02/17/19 12:36 latex gloves Allergy Rash Uncoded 02/17/19 12:36 Home Meds: Home Meds Calcium Carb & Citrate/Vit D3 [Calcium + Vitamin D3 Caplet] 1 tab PO DAILY 03/04 [History] Fluticasone/Salmeterol [Advair 100-50] 1 puff INH BID 03/04/13 [History] Multivit with Calcium,Iron,Min [Therapeutic M] 1 tab PO DAILY 03/04/13 [History] Polyethylene Glycol 3350 [MiraLAX] 17 gm PO DAILY PRN 01/04/15 [History] Acetaminophen [Tylenol Extra Strength] 1,000 mg PO Q6H PRN 11/26/17 [History] Albuterol/Ipratropium [Combivent Respimat] 1 inhalation IH QID 08/21/18 [History ] Docusate Sodium [DOK] 100 mg PO DAILY 08/21/18 [History] Omeprazole Magnesium [Prilosec Otc] 20 mg PO BID 08/21/18 [History] Vit C/E/Zn/Coppr/Lutein/Zeaxan [Preservision Areds 2 Softgel] 1 each PO BID 11/01 [History] predniSONE [Prednisone] 20 mg PO DAILY #36 tablet 02/17/19 [Rx] Past Medical History HEENT History: Reports: Cataract, Impaired Vision, Sinusitis, Other (See Below) Other HEENT History: wears glasses, seasonal allergies Cardiovascular History: Reports: Aneurysm Respiratory History: Reports: COPD Gastrointestinal History: Reports: Chronic Constipation, Colon Polyp, Hemorrhoids, Jaundice, Other (See Below) Other Gastrointestinal History: hepatitis over40 years ago when Genitourinary History: Reports: UTI, Recurrent [employer]ENT History: Reports: Musculoskeletal History: Reports: Arthritis, Back Pain, Chronic, Neck Pain, Chronic, Osteoarthritis, Other (See Below) Other Musculoskeletal History: lumbar stenosis Neurological History: Reports: None Endocrine/Metabolic History: Reports: Osteoporosis Immunologic History: Reports: Other (See Below) Other Immunologic History: Ej-Sebastián syndrome. Oncologic (Cancer) History: Reports: Basal Cell Carcinoma Dermatologic History: Reports: Eczema, Other (See Below) Other Dermatologic History: eczema. Ej Sebastián syndrome - Infectious Disease History Infectious Disease History: Reports: Other (See Below) Other Infectious Disease History: Hepatitis unknown type - Past Surgical History HEENT Surgical History: Reports: Cataract Surgery Cardiovascular Surgical History: Reports: Aneurysm Other Cardiovascular Surgeries/Procedures: aueurysm surgery end of July 2017 GI Surgical History: Reports: Colonoscopy, EGD, Other (See Below) Other GI Surgeries/Procedures: Abdominal aneurysm July 2017 Female Surgical History: Reports: None Endocrine Surgical History: Reports: None Neurological Surgical History: Reports: C-Spine Musculoskeletal Surgical History: Reports: None Oncologic Surgical History: Reports: None Dermatological Surgical History: Reports: Skin Biopsy Social & Family History - Family History Family Medical History: Noncontributory - Tobacco Use Smoking Status *Q: Former Smoker Used Tobacco, but Quit: Yes Month/Year Tobacco Last Used: 2016 - Caffeine Use Caffeine Use: Reports: Coffee - Recreational Drug Use Recreational Drug Use: No Review of Systems - Review of Systems Review Of Systems: See Below Constitutional: Reports: No Symptoms Respiratory: Reports: Shortness of Breath (Has increased because she cannot use her inhalers because of the wrist pain) Cardiovascular: Reports: No Symptoms GI/Abdominal: Reports: No Symptoms Musculoskeletal: Reports: Joint Pain Skin: Reports: Pallor, Erythema ED EXAM, GENERAL - Physical Exam Exam: See Below Free Text/Narrative:: Examination of the right wrist it is markedly edematous is erythematous limited range of motion is warm to the touch radial pulses +2 Exam Limited By: No Limitations General Appearance: Alert, WD/WN, No Apparent Distress Respiratory/Chest: No Respiratory Distress Course - Vital Signs Last Recorded V/S: Last Vital Signs Temp 96.9 F 02/17/19 12:41 Pulse 76 02/17/19 14:29 Resp 22 H 02/17/19 12:41 BP 135/78 02/17/19 14:29 Pulse Ox 93 L 02/17/19 14:29 - Orders/Labs/Meds Orders: Active Orders 24 hr Category Date Time Status RT Aerosol Therapy [RC] ASDIRECTED Care 02/17/19 12:57 Active Labs: Laboratory Tests 02/17/19 02/17/19 02/17/19 Range/Units 13:01 13:01 13:01 WBC 12.5 H (4.5-11.0) K/uL RBC 3.67 (3.30-5.50) M/uL Hgb 11.9 L (12.0-15.0) g/dL Hct 37.5 (36.0-48.0) % MCV 102 H (80-98) fL MCH 32 H (27-31) pg MCHC 32 (32-36) % Plt Count 376 (150-400) K/uL Neut % (Auto) 67 H (36-66) % Lymph % (Auto) 19 L (24-44) % [place] % (Auto) 13 H (2-6) % Eos % (Auto) 1 L (2-4) % Baso % (Auto) 0 (0-1) % ESR 67 H (0-25) mm/hr Sodium 138 L (140-148) mmol/L Potassium 3.8 (3.6-5.2) mmol/L Chloride 102 (100-108) mmol/L Carbon Dioxide 26 (21-32) mmol/L Anion Gap 13.8 (5.0-14.0) mmol/L BUN 29 H (7-18) mg/dL Creatinine 1.1 H (0.6-1.0) mg/dL Est Cr Clr Drug Dosing 33.26 mL/min Estimated GFR (MDRD) 48 L (>60) Glucose 128 H (74-106) mg/dL Uric Acid 5.5 (2.6-6.2) mg/dL Calcium 8.8 (8.5-10.1) mg/dL Meds: Medications Discontinued Medications Generic Name Dose Route Start Last Admin Trade Name Eleonora PRN Reason Stop Dose Admin Albuterol/Ipratropium 3 ml 02/17/19 12:57 02/17/19 13:01 Duoneb 3.0-0.5 Mg/3 Ml NEB 02/17/19 12:58 3 ml ONETIME ONE Administration Fentanyl 25 mcg 02/17/19 13:50 02/17/19 13:58 Sublimaze IM 02/17/19 13:51 25 mcg ONETIME ONE Administration Departure - Departure Time of Disposition: 14:48 Disposition: Home, Self-Care 01 Condition: Fair Clinical Impression: Right wrist pain - Discharge Information Prescriptions: predniSONE [Prednisone] 20 mg PO DAILY #36 tablet Referrals: Lin Sinclair MD [Primary Care Provider] - Forms: ED Department Discharge Additional Instructions: Take full course of steroids, he medications have been faxed to [facility] on [address], please follow-up with your primary care in the next 3-5 days for reevaluation, consider consultation with rheumatology, your lung biopsy should be scheduled for March 03, - My Orders Last 24 Hours: My Active Orders 02/17/19 12:57 RT Aerosol Therapy [RC] ASDIRECTED - Assessment/Plan Last 24 Hours: My Active Orders 02/17/19 12:57 RT Aerosol Therapy [RC] ASDIRECTED Plan: Assessment Acuity = acute Site and laterality = painful right wrist Etiology = suspicious for pseudogout Manifestations = none Location of injury = Home Lab values = WBC elevated to 12.5 consistent leukocytosis, sedimentation rate elevated at 67 of unclear etiology uric acid normal 5.5 x-ray shows severe osteoarthritis Plan She is scheduled for a lung biopsy on the of this month, when do a trial of prednisone which helped last time only a longer course to 40 mg once a day for 7 days followed by 20 mg once day for 7 days followed by 10 mg once day for 7 days then stop, consider consultation with rheumatology given her history of temporal arteritis and joint inflammation, recently had a angiogram done on the 18 of last month which was negative for pulmonary embolism This note was dictated using [employer] voice recognition software please call with any questions on syntax or grammar.
--- NOTE | 2019-02-17 13:29 | CR ---
Wrist Comp Min 3V Rt CLINICAL HISTORY: Pain FINDINGS: There is no acute fracture or dislocation within the right wrist. There is moderate to severe osteoarthritic change in the carpal and carpometacarpal junctions particularly along the radial aspect. There is severe degenerative change at the first carpometacarpal joint. There are severe osteoarthritic changes in the interphalangeal joint. There is some ossification and calcification in the triangular fibrocartilage complex. Impression: Severe osteoarthritis No fracture or subluxation
[2019-02-17] MEDS ORDERED: fentaNYL 100 MCG/2 ML SDV IM ONE (13:50)
[2019-02-17 14:40] VITALS: BP 135/78; PULSE 76
== END 2019-02-17 15:27 | disposition home or self-care (01) ==
LOC: JP.ED 12:10
DX: M25.531 Pain in right wrist (principal); Z88.2 Allergy status to sulfonamides; Z88.8 Allergy status to other drugs, medicaments and biological substances; Z88.0 Allergy status to penicillin; Z91.040 Latex allergy status; J44.9 Chronic obstructive pulmonary disease, unspecified; Z79.51 Long term (current) use of inhaled steroids; Z87.891 Personal history of nicotine dependence
CPT/HCPCS: 36415; 73110-26-RT; 73110-RT; 80048; 84550; 85025; 85651; 94640; 96372; 99284-25; J3010; J7620-GY

== ENCOUNTER 2019-06-15 13:59 | Inpatient (IN) | payer MEDICARE, OTHER ==
--- NOTE | 2019-06-15 14:32 | EDM.PDOC ---
ED HPI GENERAL MEDICAL PROBLEM - General Chief Complaint: General Stated Complaint: SWELLING ON LEFT HAND AND RT KNEE Time Seen by Provider: 06/15/19 14:31 Source of Information: Reports: Patient, Family History Limitations: Reports: No Limitations - History of Present Illness INITIAL COMMENTS - FREE TEXT/NARRATIVE: 79 years old female patient brought in by her daughter and with multiple complaints. History collected from the patient with help of her daughter at the bedside. 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 History of lung cancer, or radiotherapy. Also complaining of pain, redness and swelling of right knee and left wrist started last night. Denies any trauma or injury. Denies any cough or fever. Denies any abdominal pain diarrhea or constipation. Denies any urinary symptom. Denies any chest pain but feeling short of breath with any minimal exertion. Denies any focal weakness or numbness anywhere. Denies any headache or visual changes. Generalized Pain Score (Numeric/FACES): 10 - Related Data Allergies Allergy/AdvReac Type Severity Reaction Status Date / Time Sulfa (Sulfonamide Allergy Severe Hives Verified 04/30/19 13:15 Antibiotics) hylan G-F 20 [From [employer]] Allergy Intermediate n&v, Verified 04/30/19 13:15 swelling,joint pain,muscle pain Penicillins Allergy Hives Verified 04/30/19 13:15 latex gloves Allergy Rash Uncoded 04/30/19 13:15 Home Meds: Home Meds Calcium Carb & Citrate/Vit D3 [Calcium + Vitamin D3 Caplet] 1 tab PO DAILY 03/04 [History] Fluticasone/Salmeterol [Advair 100-50] 1 puff INH BID 03/04/13 [History] Multivit with Calcium,Iron,Min [Therapeutic M] 1 tab PO DAILY 03/04/13 [History] Polyethylene Glycol 3350 [MiraLAX] 17 gm PO DAILY PRN 01/04/15 [History] Albuterol/Ipratropium [Combivent Respimat] 1 inhalation IH QID 08/21/18 [History ] Docusate Sodium [DOK] 100 mg PO DAILY 08/21/18 [History] Omeprazole Magnesium [Prilosec Otc] 20 mg PO BID PRN 08/21/18 [History] Vit C/E/Zn/Coppr/Lutein/Zeaxan [Preservision Areds 2 Softgel] 1 each PO BID 11/01 [History] Acetaminophen [Tylenol] 2 tab PO Q4H PRN 02/28/19 [History] Diclofenac Sodium [Voltaren] 4 g TP QID 02/28/19 [History] predniSONE [Prednisone] 5 mg PO DAILY 06/15/19 [History] tiZANidine [Zanaflex] 4 mg PO Q6H 06/15/19 [History] traMADol [Ultram] 50 mg PO Q6H PRN 06/15/19 [History] Past Medical History HEENT History: Reports: Cataract, Impaired Vision, Sinusitis, Other (See Below) Other HEENT History: wears glasses, seasonal allergies Cardiovascular History: Reports: Aneurysm Respiratory History: Reports: COPD Gastrointestinal History: Reports: Chronic Constipation, Colon Polyp, Hemorrhoids, Jaundice, Other (See Below) Other Gastrointestinal History: hepatitis over40 years ago when Genitourinary History: Reports: UTI, Recurrent [employer] History: Reports: Musculoskeletal History: Reports: Arthritis, Back Pain, Chronic, Neck Pain, Chronic, Osteoarthritis, Other (See Below) Other Musculoskeletal History: lumbar stenosis Neurological History: Reports: None Endocrine/Metabolic History: Reports: Osteoporosis Immunologic History: Reports: Other (See Below) Other Immunologic History: Ej-Sebastián syndrome. Oncologic (Cancer) History: Reports: Basal Cell Carcinoma Dermatologic History: Reports: Eczema, Other (See Below) Other Dermatologic History: eczema. Ej Sebastián syndrome - Infectious Disease History Infectious Disease History: Reports: Chicken Pox, Measles, Mumps Other Infectious Disease History: Hepatitis unknown type - Past Surgical History HEENT Surgical History: Reports: Cataract Surgery Cardiovascular Surgical History: Reports: Aneurysm Other Cardiovascular Surgeries/Procedures: aueurysm surgery end of July 2017 GI Surgical History: Reports: Colonoscopy, EGD, Other (See Below) Other GI Surgeries/Procedures: Abdominal aneurysm July 2017 Female Surgical History: Reports: None Neurological Surgical History: Reports: C-Spine Musculoskeletal Surgical History: Reports: None Oncologic Surgical History: Reports: None Dermatological Surgical History: Reports: Skin Biopsy Social & Family History - Family History Family Medical History: Noncontributory - Tobacco Use Smoking Status *Q: Former Smoker Used Tobacco, but Quit: Yes Month/Year Tobacco Last Used: many years ago - Caffeine Use Caffeine Use: Reports: Coffee - Recreational Drug Use Recreational Drug Use: No ED ROS GENERAL - Review of Systems Review Of Systems: Comprehensive ROS is negative, except as noted in HPI. ED EXAM, GENERAL - Physical Exam Exam: See Below Exam Limited By: No Limitations General Appearance: Alert, WD/WN, No Apparent Distress Nose: Normal Inspection, Normal Mucosa, No Blood Throat/Mouth: Normal Inspection, Normal Lips, Normal Teeth, Normal Gums, Normal Oropharynx, Normal Voice, No Airway Compromise Head: Atraumatic, Normocephalic Neck: Normal Inspection, Supple, Non-Tender, Full Range of Motion Respiratory/Chest: No Respiratory Distress, Lungs Clear, Normal Breath Sounds, No Accessory Muscle Use, Chest Non-Tender Cardiovascular: Normal Peripheral Pulses, Regular Rate, Rhythm, No Edema, No Gallop, No JVD, No Murmur, No Rub GI/Abdominal: Normal Bowel Sounds (Erythema, tenderness and swelling of the left wrist. Pain limitation of range of motion. CMS intact. One spot of erythema and tenderness of the right knee. Pain limitation of range of motion. CMS intact.), Soft, Non-Tender, No Organomegaly, No Distention, No Abnormal Bruit, No Mass Neurological: Alert, Oriented, CN II-XII Intact, Normal Cognition, Normal Gait, Normal Reflexes, No Motor/Sensory Deficits Course - Vital Signs Last Recorded V/S: Last Vital Signs Temp 36.2 C 06/15/19 14:27 Pulse 80 06/15/19 14:27 Resp 18 06/15/19 14:27 BP 114/72 06/15/19 14:27 Pulse Ox 94 L 06/15/19 14:27 - Orders/Labs/Meds Orders: Active Orders 24 hr Category Date Time Status EKG Documentation Completion [RC] ASDIRECTED Care 06/15/19 14:43 Active UA W/MICROSCOPIC [URIN] Urgent Lab 06/15/19 14:40 Ordered methylPREDNISolone Sod Succ [Solu-MEDROL] 125 mg Med 06/15/19 16:47 Ordered Dextrose 5% in Water 100 ml IV ONETIME EKG 12 Lead [EK] Urgent Ther 06/15/19 14:40 Ordered Labs: Laboratory Tests 06/15/19 06/15/19 06/15/19 Range/Units 14:56 14:56 14:56 WBC 10.3 (4.5-11.0) K/uL RBC 3.43 (3.30-5.50) M/uL Hgb 11.3 L (12.0-15.0) g/dL Hct 35.5 L (36.0-48.0) % MCV 104 H (80-98) fL MCH 33 H (27-31) pg MCHC 32 (32-36) % Plt Count 332 (150-400) K/uL Neut % (Auto) 74 H (36-66) % Lymph % (Auto) 16 L (24-44) % Independence % (Auto) 9 H (2-6) % Eos % (Auto) 1 L (2-4) % Baso % (Auto) 0 (0-1) % ESR 105 H (0-25) mm/hr Sodium 139 L (140-148) mmol/L Potassium 4.0 (3.6-5.2) mmol/L Chloride 102 (100-108) mmol/L Carbon Dioxide 26 (21-32) mmol/L Anion Gap 15.0 H (5.0-14.0) mmol/L BUN 32 H (7-18) mg/dL Creatinine 1.0 (0.6-1.0) mg/dL Est Cr Clr Drug Dosing 35.34 mL/min Estimated GFR (MDRD) 53 L (>60) Glucose 104 (74-106) mg/dL Lactic Acid 1.5 (0.4-2.0) mmol/L Uric Acid (2.6-6.2) mg/dL Calcium 8.7 (8.5-10.1) mg/dL Magnesium 2.1 (1.8-2.4) mg/dL Total Bilirubin 0.4 (0.2-1.0) mg/dL AST 18 (15-37) U/L ALT 16 (12-78) U/L Alkaline Phosphatase 133 H (46-116) U/L Troponin I < 0.017 (0.000-0.056) ng/mL C-Reactive Protein 23.81 H (0.0-0.3) mg/dL Total Protein 7.3 (6.4-8.2) g/dL Albumin 2.6 L (3.4-5.0) g/dL Globulin 4.7 H (2.3-3.5) g/dL Albumin/Globulin Ratio 0.6 L (1.2-2.2) 06/15/19 Range/Units 14:56 WBC (4.5-11.0) K/uL RBC (3.30-5.50) M/uL Hgb (12.0-15.0) g/dL Hct (36.0-48.0) % MCV (80-98) fL MCH (27-31) pg MCHC (32-36) % Plt Count (150-400) K/uL Neut % (Auto) (36-66) % Lymph % (Auto) (24-44) % Independence % (Auto) (2-6) % Eos % (Auto) (2-4) % Baso % (Auto) (0-1) % ESR (0-25) mm/hr Sodium (140-148) mmol/L Potassium (3.6-5.2) mmol/L Chloride (100-108) mmol/L Carbon Dioxide (21-32) mmol/L Anion Gap (5.0-14.0) mmol/L BUN (7-18) mg/dL Creatinine (0.6-1.0) mg/dL Est Cr Clr Drug Dosing mL/min Estimated GFR (MDRD) (>60) Glucose (74-106) mg/dL Lactic Acid (0.4-2.0) mmol/L Uric Acid 6.2 (2.6-6.2) mg/dL Calcium (8.5-10.1) mg/dL Magnesium (1.8-2.4) mg/dL Total Bilirubin (0.2-1.0) mg/dL AST (15-37) U/L ALT (12-78) U/L Alkaline Phosphatase (46-116) U/L Troponin I (0.000-0.056) ng/mL C-Reactive Protein (0.0-0.3) mg/dL Total Protein (6.4-8.2) g/dL Albumin (3.4-5.0) g/dL Globulin (2.3-3.5) g/dL Albumin/Globulin Ratio (1.2-2.2) Meds: Medications Discontinued Medications Generic Name Dose Route Start Last Admin Trade Name Freq PRN Reason Stop Dose Admin Sodium Chloride 1,000 mls @ 999 mls/hr 06/15/19 14:44 06/15/19 15:00 Normal Saline IV 06/15/19 15:44 999 mls/hr .BOLUS STA Administration - Re-Assessments/Exams Free Text/Narrative Re-Assessment/Exam: 06/15/19 14:49 Patient was seen and examined shortly after arrival. Stable. Given 1 L normal saline bolus . Lab, EKG and imaging reviewed with the patient and her family at the bedside. Normal white count. Elevated ESR and CRP. This most likely inflammatory arthritis gout versus pseudogout. Unlikely septic arthritis given the normal white count, afebrile, multiple joint, having before and recurrence. 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 Then orthopedic can be consulted tomorrow and possibly aspirate her knee for further diagnosis and management. Given 125 mg IV Solu-Medrol. Chest x-ray shows no sign of acute infiltrate however multiple opacity could be related to the cancer RADIATION therapy. She might benefit from CT chest for further evaluation. Also generalized weakness and need physical therapy and further management and possible placement. Patient and her family agrees with the plan. Stable for admission. 06/15/19 16:52 Departure - Departure Time of Disposition: 16:49 Disposition: Admitted As Inpatient 65 Condition: Fair Clinical Impression: Arthritis, SOB (shortness of breath), General weakness - Discharge Information Referrals: Lin Sinclair MD [Primary Care Provider] - Forms: ED Department Discharge Sepsis Event Note - Evaluation Sepsis Screening Result: No Definite Risk - Focused Exam Vital Signs: Vital Signs Temp Pulse Resp BP Pulse Ox 06/15/19 14:27 36.2 C 80 18 114/72 94 L 06/15/19 14:16 36.2 C 80 18 114/72 94 L Date Exam was Performed: 06/15/19 Time Exam was Performed: 16:48 - My Orders Last 24 Hours: My Active Orders 06/15/19 14:40 UA W/MICROSCOPIC [URIN] Urgent EKG 12 Lead [EK] Urgent 06/15/19 14:43 EKG Documentation Completion [RC] ASDIRECTED 06/15/19 16:47 methylPREDNISolone Sod Succ [Solu-MEDROL] 125 mg Dextrose 5% in Water 100 ml IV ONETIME - Assessment/Plan Last 24 Hours: My Active Orders 06/15/19 14:40 UA W/MICROSCOPIC [URIN] Urgent EKG 12 Lead [EK] Urgent 06/15/19 14:43 EKG Documentation Completion [RC] ASDIRECTED 06/15/19 16:47 methylPREDNISolone Sod Succ [Solu-MEDROL] 125 mg Dextrose 5% in Water 100 ml IV ONETIME Plan: admission to Dr. Coats
[2019-06-15] MEDS ORDERED: Sodium Chloride 0.9% 1,000 ML IV STA (14:44)
--- NOTE | 2019-06-15 16:10 | CRLCR ---
Indication: Shortness of breath. Technique: PA view of the chest. Comparison: March 04, 2019. Findings: The heart is borderline in size. The lungs are hyperinflated. Coarse interstitial opacities are identified bilaterally. No infiltrate, pleural effusion, or pneumothorax is identified. Impression: Stable chest x-ray Dictated by Connie Trujillo MD @ Jun 15 2019 4:07PM Signed by Dr. Connie Trujillo @ Jun 15 2019 4:08PM
--- NOTE | 2019-06-15 16:20 | CRLCR ---
HISTORY: Pain and redness. TECHNIQUE: Left wrist 2 views. COMPARISON: None. FINDINGS: Soft tissue swelling at the wrist and hand. No fracture or dislocation. Severe osteoarthritis of the 1st carpometacarpal joint. Osteoarthritis of the triscaphe joint. Severe osteoarthritis of the thumb IP joint and 5th PIP joint. Mild osteoarthritis at the MCP joints. No erosions. Osteopenia. IMPRESSION: Soft tissue swelling. No acute bone abnormality. Osteoarthritis. Dictated by Carl Lazo MD @ Jun 15 2019 4:19PM Signed by Dr. Carl Lazo @ Jun 15 2019 4:19PM
--- NOTE | 2019-06-15 16:22 | CRLCR ---
HISTORY: Pain and redness. TECHNIQUE: Right knee 2 views. COMPARISON: None. FINDINGS: Moderate knee joint effusion. 7 mm medial to lateral area of mild concave deformity of the lateral tibial plateau articular cortex seen on the frontal view. Mild tricompartmental osteoarthritis. No erosions. Atherosclerotic calcifications. IMPRESSION: 1. Shallow concave deformity of the lateral tibial plateau articular cortex may be from fracture of indeterminate age. No fracture otherwise. 2. Knee joint effusion. Dictated by Carl Lazo MD @ Jun 15 2019 4:17PM Signed by Dr. Carl Lazo @ Jun 15 2019 4:21PM
[2019-06-15] MEDS ORDERED: methylPREDNISolone Sod Succ 125 MG in Dextrose 5% in Water 100 ML IV ONE ×2 (16:47)
--- NOTE | 2019-06-15 18:27 | PCM.HP.2 ---
H&P History of Present Illness - General Date of Service: 06/15/19 Admit Problem/Dx: Admission Diagnosis/Problem Admission Diagnosis/Problem Polyarthritis of multiple sites Source of Information: Patient, Family, Provider History Limitations: Reports: No Limitations - History of Present Illness Initial Comments - Free Text/Narative: CC: I'm so weak HPI: Lori presents to the emergency room today with fatigue, weakness as well as acute pain in the left wrist and right knee. She has been slowly going downhill after completing her radiation therapy about 1 month ago. She has suffered from progressive fatigue, poor appetite and excessive somnolence. She has lost about 14 pounds. She has had a slow progression in her back pain and weakness. Over the past several days she has had acute pain in the left wrist as well as the right knee. This morning she noted erythema and warmth of both the left wrist and the right knee. Pain is described as achy pain that is moderately severe. There are some sharp shooting pains. She has been using Tylenol without much improvement in the pain. Any sort of movement of these joints or pressure on the joints makes the pain worse. Pain does get better when she sits still in a recliner. Pain has been steadily been getting worse. She does not think she has had any fevers but is always chilled. She does have mild indigestion when she tries to eat anything, especially acidic type foods. She has had poor intake for the last month but especially the last few days. She does report some prolonged morning stiffness. No significant muscle aches at this time. She had a similar episode of this polyarthritis several months ago and this improved with 2 weeks of prednisone. Work-up in the emergency room revealed warm and inflamed left wrist and right knee. Sedimentation rate was greater than 100 and CRP was more than 24. Inflammatory arthropathy such as pseudogout or possibly an autoimmune condition is suspected. She has received Solu-Medrol in the emergency room and will be admitted for further work-up and management. Generalized Pain Score (Numeric/FACES): 10 - Related Data Allergies/Adverse Reactions: Allergies Allergy/AdvReac Type Severity Reaction Status Date / Time Sulfa (Sulfonamide Allergy Severe Hives Verified 04/30/19 13:15 Antibiotics) hylan G-F 20 [From [employer]] Allergy Intermediate n&v, Verified 04/30/19 13:15 swelling,joint pain,muscle pain Penicillins Allergy Hives Verified 04/30/19 13:15 latex gloves Allergy Rash Uncoded 04/30/19 13:15 Home Medications: Home Meds Calcium Carb & Citrate/Vit D3 [Calcium + Vitamin D3 Caplet] 1 tab PO DAILY 03/04 [History] Fluticasone/Salmeterol [Advair 100-50] 1 puff INH BID 03/04/13 [History] Multivit with Calcium,Iron,Min [Therapeutic M] 1 tab PO DAILY 03/04/13 [History] Polyethylene Glycol 3350 [MiraLAX] 17 gm PO DAILY PRN 01/04/15 [History] Albuterol/Ipratropium [Combivent Respimat] 1 inhalation IH QID 08/21/18 [History ] Docusate Sodium [DOK] 100 mg PO DAILY 08/21/18 [History] Omeprazole Magnesium [Prilosec Otc] 20 mg PO BID PRN 08/21/18 [History] Vit C/E/Zn/Coppr/Lutein/Zeaxan [Preservision Areds 2 Softgel] 1 each PO BID 11/01 [History] Acetaminophen [Tylenol] 2 tab PO Q4H PRN 02/28/19 [History] Diclofenac Sodium [Voltaren] 4 g TP QID 02/28/19 [History] traMADol [Ultram] 50 mg PO Q6H PRN 06/15/19 [History] Past Medical History HEENT History: Reports: Cataract, Impaired Vision, Sinusitis, Other (See Below) Other HEENT History: wears glasses, seasonal allergies Cardiovascular History: Reports: Aneurysm Respiratory History: Reports: COPD Gastrointestinal History: Reports: Chronic Constipation, Colon Polyp, Hemorrhoids, Jaundice, Other (See Below) Other Gastrointestinal History: hepatitis over40 years ago when Genitourinary History: Reports: UTI, Recurrent CARDIOVASCULAR DISEASE SPECIALIST History: Reports: Musculoskeletal History: Reports: Arthritis, Back Pain, Chronic, Neck Pain, Chronic, Osteoarthritis, Other (See Below) Other Musculoskeletal History: lumbar stenosis Neurological History: Reports: None Endocrine/Metabolic History: Reports: Osteoporosis Immunologic History: Reports: Other (See Below) Other Immunologic History: Ej-Sebastián syndrome. Oncologic (Cancer) History: Reports: Basal Cell Carcinoma Dermatologic History: Reports: Eczema, Other (See Below) Other Dermatologic History: eczema. Ej Sebastián syndrome - Infectious Disease History Infectious Disease History: Reports: Chicken Pox, Measles, Mumps Other Infectious Disease History: Hepatitis unknown type - Past Surgical History HEENT Surgical History: Reports: Cataract Surgery Cardiovascular Surgical History: Reports: Aneurysm Other Cardiovascular Surgeries/Procedures: aueurysm surgery end of July 2017 GI Surgical History: Reports: Colonoscopy, EGD, Other (See Below) Other GI Surgeries/Procedures: Abdominal aneurysm July 2017 Female Surgical History: Reports: None Neurological Surgical History: Reports: C-Spine Musculoskeletal Surgical History: Reports: None Oncologic Surgical History: Reports: None Dermatological Surgical History: Reports: Skin Biopsy Social & Family History - Family History Family Medical History: Noncontributory - Tobacco Use Smoking Status *Q: Former Smoker Used Tobacco, but Quit: Yes Month/Year Tobacco Last Used: many years ago - Caffeine Use Caffeine Use: Reports: Coffee - Alcohol Use Alcohol Use History: No - Recreational Drug Use Recreational Drug Use: No H&P Review of Systems - Review of Systems: Review Of Systems: See Below Free Text/Narrative: A complete 12 point review of systems was obtained. Pertinent positives and negatives are noted in the history of present illness. All other systems were reviewed and were negative except as noted. Exam - Exam Exam: See Below - Vital Signs Vital Signs: Last Vital Signs Temp 36.2 C 06/15/19 14:27 Pulse 80 06/15/19 14:27 Resp 18 06/15/19 14:27 BP 114/72 06/15/19 14:27 Pulse Ox 94 L 06/15/19 14:27 Weight: 49.895 kg - Exam Quality Assessment: No: Supplemental Oxygen General: Alert, Oriented, Cooperative. No: Mild Distress HEENT: Conjunctiva Clear. No: Mucosa Moist & [place] (dry), Scleral Icterus Neck: Supple, Trachea Midline. No: Lymphadenopathy Lungs: Clear to Auscultation, Normal Respiratory Effort Cardiovascular: Regular Rate, Regular Rhythm GI/Abdominal Exam: Normal Bowel Sounds, Soft, Non-Tender, No Distention, No Mass Back Exam: Normal Inspection. No: Full Range of Motion Extremities: No Pedal Edema, Increased Warmth (left wrist and right knee ) Peripheral Pulses: 2+: Dorsalis Pedis (L), Dorsalis Pedis (R) Skin: Warm, Dry, Other (erythema and warmth of left wrist joint, left 5th mcp, right knee focally over the patella ) Neuro Extensive - Mental Status: Alert, Oriented x3, Nl Response to Commands Neuro Extensive - Motor, Sensory, Reflexes: No: Dysarthria, Abnormal Motor, Tremor Psychiatric: Alert, Normal Affect - Patient Data Lab Results Last 24 hrs: Laboratory Results - last 24 hr 06/15/19 06/15/19 06/15/19 Range/Units 14:56 14:56 14:56 WBC 10.3 (4.5-11.0) K/uL RBC 3.43 (3.30-5.50) M/uL Hgb 11.3 L (12.0-15.0) g/dL Hct 35.5 L (36.0-48.0) % MCV 104 H (80-98) fL MCH 33 H (27-31) pg MCHC 32 (32-36) % Plt Count 332 (150-400) K/uL Neut % (Auto) 74 H (36-66) % Lymph % (Auto) 16 L (24-44) % [place] % (Auto) 9 H (2-6) % Eos % (Auto) 1 L (2-4) % Baso % (Auto) 0 (0-1) % ESR 105 H (0-25) mm/hr Sodium 139 L (140-148) mmol/L Potassium 4.0 (3.6-5.2) mmol/L Chloride 102 (100-108) mmol/L Carbon Dioxide 26 (21-32) mmol/L Anion Gap 15.0 H (5.0-14.0) mmol/L BUN 32 H (7-18) mg/dL Creatinine 1.0 (0.6-1.0) mg/dL Est Cr Clr Drug Dosing 35.34 mL/min Estimated GFR (MDRD) 53 L (>60) Glucose 104 (74-106) mg/dL Lactic Acid 1.5 (0.4-2.0) mmol/L Uric Acid (2.6-6.2) mg/dL Calcium 8.7 (8.5-10.1) mg/dL Magnesium 2.1 (1.8-2.4) mg/dL Total Bilirubin 0.4 (0.2-1.0) mg/dL AST 18 (15-37) U/L ALT 16 (12-78) U/L Alkaline Phosphatase 133 H (46-116) U/L Troponin I < 0.017 (0.000-0.056) ng/mL C-Reactive Protein 23.81 H (0.0-0.3) mg/dL Total Protein 7.3 (6.4-8.2) g/dL Albumin 2.6 L (3.4-5.0) g/dL Globulin 4.7 H (2.3-3.5) g/dL Albumin/Globulin Ratio 0.6 L (1.2-2.2) Urine Color (YELLOW) Urine Appearance (CLEAR) Urine pH (5.0-8.0) Ur Specific [place] (1.008-1.030) Urine Protein (NEGATIVE) mg/dL Urine Glucose (UA) (NEGATIVE) mg/dL Urine Ketones (NEGATIVE) mg/dL Urine Occult Blood (NEGATIVE) Urine Nitrite (NEGATIVE) Urine Bilirubin (NEGATIVE) Urine Urobilinogen (0.2-1.0) EU/dL Ur Leukocyte Esterase (NEGATIVE) Urine RBC (0-5) Urine WBC (0-5) Ur Epithelial Cells Amorphous Sediment Urine Bacteria Urine Mucus 06/15/19 06/15/19 Range/Units 14:56 17:14 WBC (4.5-11.0) K/uL RBC (3.30-5.50) M/uL Hgb (12.0-15.0) g/dL Hct (36.0-48.0) % MCV (80-98) fL MCH (27-31) pg MCHC (32-36) % Plt Count (150-400) K/uL Neut % (Auto) (36-66) % Lymph % (Auto) (24-44) % [place] % (Auto) (2-6) % Eos % (Auto) (2-4) % Baso % (Auto) (0-1) % ESR (0-25) mm/hr Sodium (140-148) mmol/L Potassium (3.6-5.2) mmol/L Chloride (100-108) mmol/L Carbon Dioxide (21-32) mmol/L Anion Gap (5.0-14.0) mmol/L BUN (7-18) mg/dL Creatinine (0.6-1.0) mg/dL Est Cr Clr Drug Dosing mL/min Estimated GFR (MDRD) (>60) Glucose (74-106) mg/dL Lactic Acid (0.4-2.0) mmol/L Uric Acid 6.2 (2.6-6.2) mg/dL Calcium (8.5-10.1) mg/dL Magnesium (1.8-2.4) mg/dL Total Bilirubin (0.2-1.0) mg/dL AST (15-37) U/L ALT (12-78) U/L Alkaline Phosphatase (46-116) U/L Troponin I (0.000-0.056) ng/mL C-Reactive Protein (0.0-0.3) mg/dL Total Protein (6.4-8.2) g/dL Albumin (3.4-5.0) g/dL Globulin (2.3-3.5) g/dL Albumin/Globulin Ratio (1.2-2.2) Urine Color Yellow (YELLOW) Urine Appearance Slightly cloudy A (CLEAR) Urine pH 5.5 (5.0-8.0) Ur Specific [place] 1.025 (1.008-1.030) Urine Protein 30 H (NEGATIVE) mg/dL Urine Glucose (UA) Negative (NEGATIVE) mg/dL Urine Ketones Negative (NEGATIVE) mg/dL Urine Occult Blood Negative (NEGATIVE) Urine Nitrite Negative (NEGATIVE) Urine Bilirubin Negative (NEGATIVE) Urine Urobilinogen 0.2 (0.2-1.0) EU/dL Ur Leukocyte Esterase Small H (NEGATIVE) Urine RBC Not seen (0-5) Urine WBC 10-20 H (0-5) Ur Epithelial Cells Moderate Amorphous Sediment Not seen Urine Bacteria Few Urine Mucus Few Result Diagrams: 06/15/19 14:56 06/15/19 14:56 Imaging Impressions Last 24 hrs: CXR-images personally reviewed-mild scattered densities. No obvious mass. lungs clear otherwise. no effusions. Stable compared to previous. Left wrist XR-images reviewed personally-soft tissue swelling but no fracture or dislocation Right knee XR-effusion, possible old fracture but no obvious acute fracture or dislocation EKG INTERPRETATION EKG Date: 06/15/19 Rhythm: NSR Rate (Beats/Min): 70 [place]: LAD-Left [place] Deviation P-Wave: Present QRS: Normal ST-T: Normal QT: Normal Sepsis Event Note - Evaluation Sepsis Screening Result: No Definite Risk - Focused Exam Vital Signs: Vital Signs Temp Pulse Resp BP Pulse Ox 06/15/19 14:27 36.2 C 80 18 114/72 94 L 06/15/19 14:16 36.2 C 80 18 114/72 94 L Date Exam was Performed: 06/15/19 Time Exam was Performed: 19:20 *Q Meaningful Use (ADM) - VTE Risk Assess *Q Each Risk Factor Represents 1 Point: Abnormal Pulmonary Function (COPD) Total Score 1 Point Risk Factors: 1 Each Risk Factor Represents 2 Points: Malignancy (present or previous) Total Score 2 Point Risk Factors: 2 Each Risk Factor Represents 3 Points: Age 75 Years or Greater Total Score 3 Point Risk Factors: 3 Each Risk Factor Represents 5 Points: None Total Score 5 Point Risk Factors: 0 Venous Thromboembolism Risk Factor Score *Q: 6 - Problem List (1) Polyarthropathy or polyarthritis of multiple sites SNOMED Code(s): 15975010 ICD Code: M13.0 - POLYARTHRITIS, UNSPECIFIED Status: Acute Current Visit : Yes (2) Lung cancer SNOMED Code(s): 351164476 ICD Code: C34.90 - MALIGNANT NEOPLASM OF UNSP PART OF UNSP BRONCHUS OR LUNG Status: Chronic Current Visit: Yes Qualifiers: Laterality: left Lung location: upper lobe of lung Qualified Code(s): C34.12 - Malignant neoplasm of upper lobe, left bronchus or lung (3) COPD (chronic obstructive pulmonary disease) SNOMED Code(s): 76393286 ICD Code: J44.9 - CHRONIC OBSTRUCTIVE PULMONARY DISEASE, UNSPECIFIED Status : Chronic Current Visit: Yes Qualifiers: Emphysema type: unspecified Problem List Initiated/Reviewed/Updated: Yes Orders Last 24hrs: Active Orders 24 hr Category Date Time Status Patient Status Manage Transfer [TRANSFER] Routine ADT 06/15/19 18:12 Ordered EKG Documentation Completion [RC] ASDIRECTED Care 06/15/19 14:43 Active Sodium Chloride 0.9% [Normal Saline] 1,000 ml Med 06/15/19 18:15 Active IV ASDIRECTED Resuscitation Status Routine Resus Stat 06/15/19 18:14 Ordered EKG 12 Lead [EK] Urgent Ther 06/15/19 14:40 Ordered Medication Orders Sodium Chloride (Normal Saline) 1,000 mls @ 125 mls/hr IV ASDIRECTED MARY Assessment/Plan Comment:: ASSESSMENT AND PLAN - 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 History of similar several months ago that did resolve with a couple weeks of prednisone. This would fit with pseudogout except she has significant systemic symptoms including fatigue excessive somnolence, poor intake and weight loss. Her uric acid level was at the upper limit of normal but was in the normal range. She may have an autoimmune arthritis but there are no localizing symptoms or specific symptoms otherwise. Sed rate is significantly elevated at more than 100. -Prednisone 40 mg daily starting tomorrow -Pain control with scheduled acetaminophen and as needed tramadol -Physical therapy -Send out labs for JUAN, antiCCP, Lyme and other autoimmune diseases -Ortho consultation to consider arthrocentesis of the right knee to look for crystal disease Left upper lobe lung cancer-solitary nodule that has been treated with radiation. Last treatment was about 1 month ago. Follow-up scheduled in 1 month. 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 She does have some increase in her dyspnea but I think it might be related to fatigue. No evidence for infection. -Continue home medications Maintenance issues - - DVT prophylaxis -mechanical - GI prophylaxis -PPI - Nutrition -regular with supplements - [place] catheter -not indicated CODE STATUS -DO NOT RESUSCITATE Admission justification -this patient will be admitted for inpatient services and is medically appropriate meeting medical necessity for inpatient admission as outlined in my documentation. I reasonably expect the patient will require inpatient services that span a period time over 2 midnights. I reasonably expect this patient to be discharged or transferred within 96 hours [facility]. Disposition -I would anticipate discharge home after the hospital stay Primary care physician -Dr. Lin Coats M.D. - Mortality Measure Prognosis:: Good
[2019-06-15] MEDS: Sodium Chloride 0.9% 1,000 ML IV SCH (18:35)
[2019-06-15] MEDS ORDERED: Ondansetron 4 MG Tab.DIS PO PRN (19:18)
[2019-06-15] MEDS ORDERED: LORazepam 2 MG/ML SDV IVPUSH PRN (19:18)
[2019-06-15] MEDS ORDERED: Magnesium Hydroxide 400 MG/5 ML Susp 30 ML Cup PO PRN (19:18)
[2019-06-15] MEDS ORDERED: Albuterol 0.083% 2.5 MG/3 ML Neb Soln NEB PRN (19:18)
[2019-06-15] MEDS ORDERED: traMADol 50 MG Tab PO PRN (19:18)
[2019-06-15] MEDS ORDERED: Ondansetron 4 MG/2 ML SDV IV PRN (19:18)
[2019-06-15] MEDS: Melatonin 3 MG Tab PO SCH (20:16)
[2019-06-15] MEDS: Acetaminophen 500 MG Tab PO SCH (20:16)
[2019-06-15] MEDS: Polyethylene Glycol 3350 Powder 17 GM Packet PO SCH (20:17)
[2019-06-15] MEDS: Fluticasone-Salmeterol 55-14 MCG Powder Inhalent INH SCH (20:18)
[2019-06-16] MEDS: Sodium Chloride 0.9% 1,000 ML IV SCH ×2 (01:14→10:41)
[2019-06-16] MEDS: Fluticasone-Salmeterol 55-14 MCG Powder Inhalent INH SCH ×3 (07:24→20:31)
[2019-06-16] MEDS: Pantoprazole 40 MG Tab.CR PO SCH ×2 (07:26→16:17)
[2019-06-16] MEDS: predniSONE 20 MG Tab PO SCH (07:26)
[2019-06-16] MEDS: Acetaminophen 500 MG Tab PO SCH ×3 (08:24→20:32)
[2019-06-16] MEDS ORDERED: hydrOXYzine HCL 100 MG/2 ML SDV IM ONE (13:00)
--- NOTE | 2019-06-16 13:53 | PCM.PN ---
- General Info Date of Service: 06/16/19 Subjective Update: Ms. Lowery has shown some improvement from admission yesterday, less pain and swelling in the left wrist and right knee. Aspiration of the right knee was performed today by Dr. Bailey, unfortunately specimen clotted for lab was able to proceed with analysis. She did receive IV steroids yesterday and has been started on oral prednisone today. Labs for evaluation of arthritis have been sent to the reference lab and are pending. Functional Status: Reports: Pain Controlled, Tolerating Diet, Ambulating, Urinating - Review of Systems General: Reports: Weakness, Fatigue, Malaise. Denies: Fever, Chills Pulmonary: Reports: No Symptoms Cardiovascular: Reports: No Symptoms Gastrointestinal: Reports: No Symptoms Musculoskeletal: Reports: Other (Left wrist and right knee pain and swelling) - Patient Data Vitals - Most Recent: Last Vital Signs Temp 96.3 F L 06/16/19 10:35 Pulse 60 06/16/19 10:35 Resp 18 06/16/19 10:35 BP 128/81 06/16/19 10:35 Pulse Ox 94 L 06/16/19 10:35 Weight - Most Recent: 110 lb I&O - Last 24 Hours: Intake & Output 06/15/19 06/16/19 06/16/19 22:59 06:59 14:59 Intake Total 1256 900 Output Total 225 200 Balance 1031 700 Lab Results Last 24 Hours: Laboratory Results - last 24 hr 06/15/19 06/15/19 06/15/19 Range/Units 14:56 14:56 14:56 WBC 10.3 (4.5-11.0) K/uL RBC 3.43 (3.30-5.50) M/uL Hgb 11.3 L (12.0-15.0) g/dL Hct 35.5 L (36.0-48.0) % MCV 104 H (80-98) fL MCH 33 H (27-31) pg MCHC 32 (32-36) % Plt Count 332 (150-400) K/uL Neut % (Auto) 74 H (36-66) % Lymph % (Auto) 16 L (24-44) % Larue % (Auto) 9 H (2-6) % Eos % (Auto) 1 L (2-4) % Baso % (Auto) 0 (0-1) % ESR 105 H (0-25) mm/hr Sodium 139 L (140-148) mmol/L Potassium 4.0 (3.6-5.2) mmol/L Chloride 102 (100-108) mmol/L Carbon Dioxide 26 (21-32) mmol/L Anion Gap 15.0 H (5.0-14.0) mmol/L BUN 32 H (7-18) mg/dL Creatinine 1.0 (0.6-1.0) mg/dL Est Cr Clr Drug Dosing 35.34 mL/min Estimated GFR (MDRD) 53 L (>60) Glucose 104 (74-106) mg/dL Lactic Acid 1.5 (0.4-2.0) mmol/L Uric Acid (2.6-6.2) mg/dL Calcium 8.7 (8.5-10.1) mg/dL Magnesium 2.1 (1.8-2.4) mg/dL Total Bilirubin 0.4 (0.2-1.0) mg/dL AST 18 (15-37) U/L ALT 16 (12-78) U/L Alkaline Phosphatase 133 H (46-116) U/L Troponin I < 0.017 (0.000-0.056) ng/mL C-Reactive Protein 23.81 H (0.0-0.3) mg/dL Total Protein 7.3 (6.4-8.2) g/dL Albumin 2.6 L (3.4-5.0) g/dL Globulin 4.7 H (2.3-3.5) g/dL Albumin/Globulin Ratio 0.6 L (1.2-2.2) Urine Color (YELLOW) Urine Appearance (CLEAR) Urine pH (5.0-8.0) Ur Specific [place] (1.008-1.030) Urine Protein (NEGATIVE) mg/dL Urine Glucose (UA) (NEGATIVE) mg/dL Urine Ketones (NEGATIVE) mg/dL Urine Occult Blood (NEGATIVE) Urine Nitrite (NEGATIVE) Urine Bilirubin (NEGATIVE) Urine Urobilinogen (0.2-1.0) EU/dL Ur Leukocyte Esterase (NEGATIVE) Urine RBC (0-5) Urine WBC (0-5) Ur Epithelial Cells Amorphous Sediment Urine Bacteria Urine Mucus 06/15/19 06/15/19 06/16/19 Range/Units 14:56 17:14 04:10 WBC 6.0 (4.5-11.0) K/uL RBC 3.48 (3.30-5.50) M/uL Hgb 11.4 L (12.0-15.0) g/dL Hct 35.6 L (36.0-48.0) % MCV 102 H (80-98) fL MCH 33 H (27-31) pg MCHC 32 (32-36) % Plt Count 313 (150-400) K/uL Neut % (Auto) (36-66) % Lymph % (Auto) (24-44) % Larue % (Auto) (2-6) % Eos % (Auto) (2-4) % Baso % (Auto) (0-1) % ESR (0-25) mm/hr Sodium (140-148) mmol/L Potassium (3.6-5.2) mmol/L Chloride (100-108) mmol/L Carbon Dioxide (21-32) mmol/L Anion Gap (5.0-14.0) mmol/L BUN (7-18) mg/dL Creatinine (0.6-1.0) mg/dL Est Cr Clr Drug Dosing mL/min Estimated GFR (MDRD) (>60) Glucose (74-106) mg/dL Lactic Acid (0.4-2.0) mmol/L Uric Acid 6.2 (2.6-6.2) mg/dL Calcium (8.5-10.1) mg/dL Magnesium (1.8-2.4) mg/dL Total Bilirubin (0.2-1.0) mg/dL AST (15-37) U/L ALT (12-78) U/L Alkaline Phosphatase (46-116) U/L Troponin I (0.000-0.056) ng/mL C-Reactive Protein (0.0-0.3) mg/dL Total Protein (6.4-8.2) g/dL Albumin (3.4-5.0) g/dL Globulin (2.3-3.5) g/dL Albumin/Globulin Ratio (1.2-2.2) Urine Color Yellow (YELLOW) Urine Appearance Slightly cloudy A (CLEAR) Urine pH 5.5 (5.0-8.0) Ur Specific [place] 1.025 (1.008-1.030) Urine Protein 30 H (NEGATIVE) mg/dL Urine Glucose (UA) Negative (NEGATIVE) mg/dL Urine Ketones Negative (NEGATIVE) mg/dL Urine Occult Blood Negative (NEGATIVE) Urine Nitrite Negative (NEGATIVE) Urine Bilirubin Negative (NEGATIVE) Urine Urobilinogen 0.2 (0.2-1.0) EU/dL Ur Leukocyte Esterase Small H (NEGATIVE) Urine RBC Not seen (0-5) Urine WBC 10-20 H (0-5) Ur Epithelial Cells Moderate Amorphous Sediment Not seen Urine Bacteria Few Urine Mucus Few 06/16/19 Range/Units 04:10 WBC (4.5-11.0) K/uL RBC (3.30-5.50) M/uL Hgb (12.0-15.0) g/dL Hct (36.0-48.0) % MCV (80-98) fL MCH (27-31) pg MCHC (32-36) % Plt Count (150-400) K/uL Neut % (Auto) (36-66) % Lymph % (Auto) (24-44) % Larue % (Auto) (2-6) % Eos % (Auto) (2-4) % Baso % (Auto) (0-1) % ESR (0-25) mm/hr Sodium 138 L (140-148) mmol/L Potassium 4.4 (3.6-5.2) mmol/L Chloride 105 (100-108) mmol/L Carbon Dioxide 23 (21-32) mmol/L Anion Gap 14.4 H (5.0-14.0) mmol/L BUN 26 H (7-18) mg/dL Creatinine 0.8 (0.6-1.0) mg/dL Est Cr Clr Drug Dosing 44.18 mL/min Estimated GFR (MDRD) > 60 (>60) Glucose 174 H (74-106) mg/dL Lactic Acid (0.4-2.0) mmol/L Uric Acid (2.6-6.2) mg/dL Calcium 8.2 L (8.5-10.1) mg/dL Magnesium (1.8-2.4) mg/dL Total Bilirubin (0.2-1.0) mg/dL AST (15-37) U/L ALT (12-78) U/L Alkaline Phosphatase (46-116) U/L Troponin I (0.000-0.056) ng/mL C-Reactive Protein (0.0-0.3) mg/dL Total Protein (6.4-8.2) g/dL Albumin (3.4-5.0) g/dL Globulin (2.3-3.5) g/dL Albumin/Globulin Ratio (1.2-2.2) Urine Color (YELLOW) Urine Appearance (CLEAR) Urine pH (5.0-8.0) Ur Specific [place] (1.008-1.030) Urine Protein (NEGATIVE) mg/dL Urine Glucose (UA) (NEGATIVE) mg/dL Urine Ketones (NEGATIVE) mg/dL Urine Occult Blood (NEGATIVE) Urine Nitrite (NEGATIVE) Urine Bilirubin (NEGATIVE) Urine Urobilinogen (0.2-1.0) EU/dL Ur Leukocyte Esterase (NEGATIVE) Urine RBC (0-5) Urine WBC (0-5) Ur Epithelial Cells Amorphous Sediment Urine Bacteria Urine Mucus Med Orders - Current: Current Medications Acetaminophen (Tylenol Extra Strength) 1,000 mg PO TID [facility] Last Admin: 06/16/19 13:25 Dose: 1,000 mg Albuterol (Proventil Neb Soln) 2.5 mg NEB Q4H PRN PRN Reason: Shortness Of Breath/wheezing Lorazepam (Ativan) 0.5 mg IVPUSH Q4H PRN PRN Reason: Nausea/Vomiting Magnesium Hydroxide (Milk Of Magnesia) 30 ml PO Q12H PRN PRN Reason: Constipation Last Admin: 06/15/19 20:17 Dose: 30 ml Melatonin (Melatonin) 9 mg PO BEDTIME [facility] Last Admin: 06/15/19 20:16 Dose: 9 mg Ondansetron HCl (Zofran Odt) 4 mg PO Q6H PRN PRN Reason: Nausea able to take PO Last Admin: 06/15/19 20:15 Dose: 4 mg Ondansetron HCl (Zofran) 4 mg IV Q6H PRN PRN Reason: Nausea/Vomiting Pantoprazole Sodium (Protonix) 40 mg PO BIDAC [facility] Last Admin: 06/16/19 07:26 Dose: 40 mg Polyethylene Glycol (Miralax) 17 gm PO BEDTIME [facility] Last Admin: 06/15/19 20:17 Dose: 17 gm Prednisone (Prednisone) 40 mg PO WITHBREAKFAST [facility] Last Admin: 06/16/19 07:26 Dose: 40 mg Fluticasone/Salmeterol (Fluticasone-Salmeterol 55-14 Mcg Powder Inh) 1 puff INH BID [facility] Last Admin: 06/16/19 08:32 Dose: Not Given Senna/Docusate Sodium (Senna Plus) 1 tab PO BID PRN PRN Reason: Constipation Last Admin: 06/15/19 20:16 Dose: 1 tab Tramadol HCl (Ultram) 50 mg PO Q6H PRN PRN Reason: Pain Last Admin: 06/15/19 20:16 Dose: 50 mg Discontinued Medications Sodium Chloride (Normal Saline) 1,000 mls @ 999 mls/hr IV .BOLUS STA Stop: 06/15/19 15:44 Last Admin: 06/15/19 15:00 Dose: 999 mls/hr Methylprednisolone Sodium Succinate 125 mg/ Dextrose/Water 102 mls @ 200 mls/ hr IV ONETIME ONE Stop: 06/15/19 17:18 Last Admin: 06/15/19 17:13 Dose: 200 mls/hr Sodium Chloride (Normal Saline) 1,000 mls @ 125 mls/hr IV ASDIRECTED [facility] Last Admin: 06/16/19 10:41 Dose: 125 mls/hr - Exam General: Alert, Oriented, Cooperative, Mild Distress Lungs: Clear to Auscultation, Normal Respiratory Effort Cardiovascular: Regular Rate, Regular Rhythm GI/Abdominal Exam: Soft, Non-Tender, No Organomegaly, No Distention Extremities: Joint Swelling (Left wrist and right knee) Sepsis Event Note - Evaluation Sepsis Screening Result: No Definite Risk - Focused Exam Vital Signs: Vital Signs Temp Pulse Resp BP Pulse Ox 06/16/19 10:35 96.3 F L 60 18 128/81 94 L 06/16/19 07:20 96.0 F L 64 16 152/89 H 97 Date Exam was Performed: 06/16/19 Time Exam was Performed: 13:50 - Problem List Review Problem List Initiated/Reviewed/Updated: Yes - My Orders Last 24 Hours: My Active Orders 06/16/19 13:49 Convert IV to Saline Lock [OM.PC] Routine - Plan Plan:: ASSESSMENT AND PLAN - 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 History of similar several months ago that did resolve with a couple weeks of prednisone. This would fit with pseudogout except she has significant systemic symptoms including fatigue excessive somnolence, poor intake and weight loss. Her uric acid level was at the upper limit of normal but was in the normal range. She may have an autoimmune arthritis but there are no localizing symptoms or specific symptoms otherwise. Sed rate is significantly elevated at more than 100. Aspirated fluid from right knee unable to be evaluated as the specimen clotted. Labs for evaluation of arthritis have been drawn and are pending -Prednisone 40 mg daily -Pain control with scheduled acetaminophen and as needed tramadol -Physical therapy -Send out labs for JUAN, antiCCP, Lyme and other autoimmune diseases Left upper lobe lung cancer-solitary nodule that has been treated with radiation. Last treatment was about 1 month ago. Follow-up scheduled in 1 month. 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 She does have some increase in her dyspnea but I think it might be related to fatigue. No evidence for infection. -Continue home medications Maintenance issues - - DVT prophylaxis -mechanical - GI prophylaxis -PPI - Nutrition -regular with supplements - Ochoa catheter -not indicated CODE STATUS -DO NOT RESUSCITATE Admission justification -this patient will be admitted for inpatient services and is medically appropriate meeting medical necessity for inpatient admission as outlined in my documentation. I reasonably expect the patient will require inpatient services that span a period time over 2 midnights. I reasonably expect this patient to be discharged or transferred within 96 hours after admission to the [facility]. Disposition -I would anticipate discharge home after the hospital stay Primary care physician -Dr. Lin Sinclair
[2019-06-16] MEDS: Melatonin 3 MG Tab PO SCH (20:31)
[2019-06-16] MEDS: Polyethylene Glycol 3350 Powder 17 GM Packet PO SCH (20:32)
[2019-06-17] MEDS: predniSONE 20 MG Tab PO SCH (08:24)
[2019-06-17] MEDS: Pantoprazole 40 MG Tab.CR PO SCH (08:24)
[2019-06-17] MEDS: Fluticasone-Salmeterol 55-14 MCG Powder Inhalent INH SCH (08:25)
[2019-06-17] MEDS: Acetaminophen 500 MG Tab PO SCH ×2 (08:25→13:09)
[2019-06-17 10:34] VITALS: BP 149/78; PULSE 69
--- NOTE | 2019-06-17 12:51 | PCM.CONS ---
H&P History of Present Illness - General Date of Service: 06/16/19 Admit Problem/Dx: Admission Diagnosis/Problem Admission Diagnosis/Problem Polyarthritis of multiple sites Source of Information: Patient, Provider History Limitations: Reports: No Limitations - History of Present Illness Initial Comments - Free Text/Narative: asked to see 79 year old female with fairly rapid onset of joint swelling, redness ans pain. Started Sunday and got worse Sunday. Noted swelling on right knee that sounds like prepatellar bursitis. Does have history of OA on knee and gets intermittent steroid injections. No fevers or chills. Does heve some recent stressors including radiation treatment. Location: Reports: Upper Extremity, Left, Lower Extremity, Right (left wrist, right knee) Improves with: Reports: Rest Worsens with: Reports: Movement Associated Symptoms: Reports: Malaise Generalized Pain Score (Numeric/FACES): 10 - Related Data Allergies/Adverse Reactions: Allergies Allergy/AdvReac Type Severity Reaction Status Date / Time Sulfa (Sulfonamide Allergy Severe Hives Verified 04/30/19 13:15 Antibiotics) hylan G-F 20 [From [employer]] Allergy Intermediate n&v, Verified 04/30/19 13:15 swelling,joint pain,muscle pain Penicillins Allergy Hives Verified 04/30/19 13:15 latex gloves Allergy Rash Uncoded 04/30/19 13:15 Home Medications: Home Meds Calcium Carb & Citrate/Vit D3 [Calcium + Vitamin D3 Caplet] 1 tab PO DAILY 03/04 [History] Fluticasone/Salmeterol [Advair 100-50] 1 puff INH BID 03/04/13 [History] Multivit with Calcium,Iron,Min [Therapeutic M] 1 tab PO DAILY 03/04/13 [History] Polyethylene Glycol 3350 [MiraLAX] 17 gm PO DAILY PRN 01/04/15 [History] Albuterol/Ipratropium [Combivent Respimat] 1 inhalation IH QID 08/21/18 [History ] Docusate Sodium [DOK] 100 mg PO DAILY 08/21/18 [History] Omeprazole Magnesium [Prilosec Otc] 20 mg PO BID PRN 08/21/18 [History] Vit C/E/Zn/Coppr/Lutein/Zeaxan [Preservision Areds 2 Softgel] 1 each PO BID 11/01 [History] Acetaminophen [Tylenol] 2 tab PO Q4H PRN 02/28/19 [History] Diclofenac Sodium [Voltaren] 4 g TP QID 02/28/19 [History] traMADol [Ultram] 50 mg PO Q6H PRN 06/15/19 [History] Past Medical History HEENT History: Reports: Cataract, Impaired Vision, Sinusitis, Other (See Below) Other HEENT History: wears glasses, seasonal allergies Cardiovascular History: Reports: Aneurysm Respiratory History: Reports: COPD Gastrointestinal History: Reports: Chronic Constipation, Colon Polyp, Hemorrhoids, Jaundice, Other (See Below) Other Gastrointestinal History: hepatitis over40 years ago when Genitourinary History: Reports: UTI, Recurrent [employer] History: Reports: Musculoskeletal History: Reports: Arthritis, Back Pain, Chronic, Neck Pain, Chronic, Osteoarthritis, Other (See Below) Other Musculoskeletal History: lumbar stenosis Neurological History: Reports: None Endocrine/Metabolic History: Reports: Osteoporosis Immunologic History: Reports: Other (See Below) Other Immunologic History: Ej-Sebastián syndrome. Oncologic (Cancer) History: Reports: Basal Cell Carcinoma Dermatologic History: Reports: Eczema, Other (See Below) Other Dermatologic History: eczema. Ej Sebastián syndrome - Infectious Disease History Infectious Disease History: Reports: Chicken Pox, Measles, Mumps Other Infectious Disease History: Hepatitis unknown type - Past Surgical History HEENT Surgical History: Reports: Cataract Surgery Cardiovascular Surgical History: Reports: Aneurysm Other Cardiovascular Surgeries/Procedures: aueurysm surgery end of July 2017 GI Surgical History: Reports: Colonoscopy, EGD, Other (See Below) Other GI Surgeries/Procedures: Abdominal aneurysm July 2017 Female Surgical History: Reports: None Neurological Surgical History: Reports: C-Spine Musculoskeletal Surgical History: Reports: None Oncologic Surgical History: Reports: None Dermatological Surgical History: Reports: Skin Biopsy Social & Family History - Family History Family Medical History: Noncontributory - Tobacco Use Smoking Status *Q: Former Smoker Used Tobacco, but Quit: Yes Month/Year Tobacco Last Used: many years ago - Caffeine Use Caffeine Use: Reports: Coffee - Recreational Drug Use Recreational Drug Use: No H&P Review of Systems - Review of Systems: Review Of Systems: See Below General: Reports: Fatigue Musculoskeletal: Reports: Joint Pain, Joint Swelling Exam - Exam Exam: See Below - Vital Signs Vital Signs: Last Vital Signs Temp 36.6 C 06/17/19 10:32 Pulse 69 06/17/19 10:32 Resp 18 06/17/19 10:32 BP 149/78 H 06/17/19 10:32 Pulse Ox 96 06/17/19 10:32 Weight: 49.895 kg - Exam General: Alert, Oriented Extremities: Joint Swelling, Other (Small effusion present right knee, mildly tender diffusely, not warm, left wrist erythmatous and tender, no localized swelling or signficant wrist effusion) Skin: Warm, Dry, Intact - Patient Data Result Diagrams: 06/16/19 04:10 06/16/19 04:10 Vj Results Last 24 hrs: Microbiology 06/16/19 12:42 Gram Stain - Final Joint / Synovial Fluid - Knee, Right Sepsis Event Note - Evaluation Sepsis Screening Result: No Definite Risk - Focused Exam Vital Signs: Vital Signs Temp Pulse Resp BP Pulse Ox 06/17/19 10:32 36.6 C 69 18 149/78 H 96 06/17/19 07:00 36.8 C 63 18 143/89 H 94 L 06/17/19 02:18 36.1 C 64 16 138/94 H 94 L Date Exam was Performed: 06/17/19 Time Exam was Performed: 12:46 Consult PN Assessment/Plan Procedures: Procedures AIRWAY INHALATION TREATMENT (02/17/19) ASSAY OF BLOOD/URIC ACID (02/17/19) ASSAY OF CREATININE (07/09/17) ASSAY OF LACTIC ACID (08/13/17) ASSAY OF LIPASE (01/31/19) ASSAY OF TROPONIN QUANT (01/31/19) COLONOSCOPY AND BIOPSY (06/21/16) COLONOSCOPY W/LESION REMOVAL (03/06/14) COMPLETE CBC AUTOMATED (03/03/19) COMPLETE CBC W/AUTO DIFF WBC (02/17/19) COMPREHEN METABOLIC PANEL (01/31/19) CT ABD & PELV W/CONTRAST (08/13/17) CT ANGIO ABDOM W/O & W/DYE (07/09/17) CT ANGIO ABDOMINAL ARTERIES (08/13/17) CT ANGIOGRAPH PELV W/O&W/DYE (07/09/17) CT ANGIOGRAPHY CHEST (01/31/19) CT HEAD/BRAIN W/O DYE (11/26/17) CT LUMBAR SPINE W/O DYE (07/09/17) CT SCAN FOR NEEDLE BIOPSY (03/03/19) DIAGNOSTIC COLONOSCOPY (01/06/15) EMERGENCY DEPT VISIT (02/17/19) EMERGENCY DEPT VISIT (01/31/19) EMERGENCY DEPT VISIT (01/31/19) EMERGENCY DEPT VISIT (08/13/17) EMERGENCY DEPT VISIT (10/30/14) EMERGENCY DEPT VISIT (10/30/14) EMERGENCY DEPT VISIT (10/28/14) EMERGENCY DEPT VISIT (10/28/14) FIBRIN DEGRADATION QUANT (01/31/19) HOT OR COLD PACKS THERAPY (07/08/15) HYDRATE IV INFUSION ADD-ON (03/03/19) HYDRATION IV INFUSION INIT (03/03/19) IMMUNOHISTO ANTB 1ST STAIN (03/03/19) IMMUNOHISTO ANTB ADDL SLIDE (03/03/19) MANUAL THERAPY 1/> REGIONS (06/13/18) MEASURE BLOOD OXYGEN LEVEL (03/03/19) MECHANICAL TRACTION THERAPY (09/14/15) METABOLIC PANEL TOTAL CA (02/17/19) NEEDLE BIOPSY CHEST LINING (03/03/19) NJX INTERLAMINAR LMBR/SAC (04/30/19) ORTHOTIC MGMT&TRAING 1ST ENC (05/13/15) PROTHROMBIN TIME (03/03/19) PT EVAL MOD COMPLEX 30 MIN (05/13/18) PT EVALUATION (09/14/15) RBC SED RATE NONAUTOMATED (02/17/19) ROUTINE VENIPUNCTURE (03/03/19) TEMPORAL ARTERY PROCEDURE (11/27/17) THER/PROPH/DIAG INJ SC/IM (02/17/19) THERAPEUTIC EXERCISES (09/14/15) TISSUE EXAM BY PATHOLOGIST (03/03/19) ULTRASOUND THERAPY (06/13/18) URINALYSIS AUTO W/SCOPE (01/31/19) US EXAM ABDO BACK WALL BARRY (04/20/17) X-RAY EXAM CHEST 1 VIEW (03/03/19) X-RAY EXAM OF SHOULDER (01/31/19) X-RAY EXAM OF WRIST (02/17/19) (1) Polyarthropathy or polyarthritis of multiple sites SNOMED Code(s): 72775563 Code(s): M13.0 - POLYARTHRITIS, UNSPECIFIED Current Visit: Yes Problem List Initiated/Reviewed/Updated: Yes My Orders Last 24 Hours: My Active Orders 06/16/19 12:42 CULTURE BODY FLUID + SMEAR [RM] Routine Plan: Right knee aspirated- 5 cc of red tinged effusion, minimal cloudiness, not grossly purulent. Had the appearance of an inflammatory effusion. Injected 2 cc of Celestone. Sent for labs but unfortunately by the time the got it the specimen had clotted enough that a cell count and crystal analysis was not possible. Clinical suspicion for septic joints is very low and exam and fluid appearance not typical of gout. Pseudogout is a possibility.
--- NOTE | 2019-06-17 13:06 | PCM.CONSN ---
- General Info Date of Service: 06/17/19 Functional Status: Reports: Other (Much improved, up with PT and able to navigate stairs) - Review of Systems General: Reports: No Symptoms Musculoskeletal: Reports: Other (Erythema in wrist has resolved, minimal tenderness, minimal symptoms right knee) - Patient Data Vitals - Most Recent: Last Vital Signs Temp 36.6 C 06/17/19 10:32 Pulse 69 06/17/19 10:32 Resp 18 06/17/19 10:32 BP 149/78 H 06/17/19 10:32 Pulse Ox 96 06/17/19 10:32 Weight - Most Recent: 49.895 kg I&O - Last 24 Hours: Intake & Output 06/16/19 06/17/19 06/17/19 22:59 06:59 14:59 Intake Total 640 Balance 640 Vj Results Last 24 Hours: Microbiology 06/16/19 12:42 Gram Stain - Final Joint / Synovial Fluid - Knee, Right Med Orders - Current: Current Medications Acetaminophen (Tylenol Extra Strength) 1,000 mg PO TID [facility] Last Admin: 06/17/19 08:25 Dose: 1,000 mg Albuterol (Proventil Neb Soln) 2.5 mg NEB Q4H PRN PRN Reason: Shortness Of Breath/wheezing Lorazepam (Ativan) 0.5 mg IVPUSH Q4H PRN PRN Reason: Nausea/Vomiting Magnesium Hydroxide (Milk Of Magnesia) 30 ml PO Q12H PRN PRN Reason: Constipation Last Admin: 06/15/19 20:17 Dose: 30 ml Melatonin (Melatonin) 9 mg PO BEDTIME [facility] Last Admin: 06/16/19 20:31 Dose: 9 mg Ondansetron HCl (Zofran Odt) 4 mg PO Q6H PRN PRN Reason: Nausea able to take PO Last Admin: 06/15/19 20:15 Dose: 4 mg Ondansetron HCl (Zofran) 4 mg IV Q6H PRN PRN Reason: Nausea/Vomiting Pantoprazole Sodium (Protonix) 40 mg PO BIDAC [facility] Last Admin: 06/17/19 08:24 Dose: 40 mg Polyethylene Glycol (Miralax) 17 gm PO BEDTIME [facility] Last Admin: 06/16/19 20:32 Dose: 17 gm Prednisone (Prednisone) 40 mg PO WITHBREAKFAST [facility] Last Admin: 06/17/19 08:24 Dose: 40 mg Fluticasone/Salmeterol (Fluticasone-Salmeterol 55-14 Mcg Powder Inh) 1 puff INH BID [facility] Last Admin: 06/17/19 08:25 Dose: 1 puff Senna/Docusate Sodium (Senna Plus) 1 tab PO BID PRN PRN Reason: Constipation Last Admin: 06/15/19 20:16 Dose: 1 tab Tramadol HCl (Ultram) 50 mg PO Q6H PRN PRN Reason: Pain Last Admin: 06/15/19 20:16 Dose: 50 mg Discontinued Medications Sodium Chloride (Normal Saline) 1,000 mls @ 999 mls/hr IV .BOLUS STA Stop: 06/15/19 15:44 Last Admin: 06/15/19 15:00 Dose: 999 mls/hr Methylprednisolone Sodium Succinate 125 mg/ Dextrose/Water 102 mls @ 200 mls/ hr IV ONETIME ONE Stop: 06/15/19 17:18 Last Admin: 06/15/19 17:13 Dose: 200 mls/hr Sodium Chloride (Normal Saline) 1,000 mls @ 125 mls/hr IV ASDIRECTED [facility] Last Admin: 06/16/19 10:41 Dose: 125 mls/hr - Exam Extremities: Other (left wrist no erythema, minimla residual effusion right knee ) Sepsis Event Note - Evaluation Sepsis Screening Result: No Definite Risk - Focused Exam Vital Signs: Vital Signs Temp Pulse Resp BP Pulse Ox 06/17/19 10:32 36.6 C 69 18 149/78 H 96 06/17/19 07:00 36.8 C 63 18 143/89 H 94 L 06/17/19 02:18 36.1 C 64 16 138/94 H 94 L Date Exam was Performed: 06/17/19 Time Exam was Performed: 13:01 Consult PN Assessment/Plan Procedures: Procedures AIRWAY INHALATION TREATMENT (02/17/19) ASSAY OF BLOOD/URIC ACID (02/17/19) ASSAY OF CREATININE (07/09/17) ASSAY OF LACTIC ACID (08/13/17) ASSAY OF LIPASE (01/31/19) ASSAY OF TROPONIN QUANT (01/31/19) COLONOSCOPY AND BIOPSY (06/21/16) COLONOSCOPY W/LESION REMOVAL (03/06/14) COMPLETE CBC AUTOMATED (03/03/19) COMPLETE CBC W/AUTO DIFF WBC (02/17/19) COMPREHEN METABOLIC PANEL (01/31/19) CT ABD & PELV W/CONTRAST (08/13/17) CT ANGIO ABDOM W/O & W/DYE (07/09/17) CT ANGIO ABDOMINAL ARTERIES (08/13/17) CT ANGIOGRAPH PELV W/O&W/DYE (07/09/17) CT ANGIOGRAPHY CHEST (01/31/19) CT HEAD/BRAIN W/O DYE (11/26/17) CT LUMBAR SPINE W/O DYE (07/09/17) CT SCAN FOR NEEDLE BIOPSY (03/03/19) DIAGNOSTIC COLONOSCOPY (01/06/15) EMERGENCY DEPT VISIT (02/17/19) EMERGENCY DEPT VISIT (01/31/19) EMERGENCY DEPT VISIT (01/31/19) EMERGENCY DEPT VISIT (08/13/17) EMERGENCY DEPT VISIT (10/30/14) EMERGENCY DEPT VISIT (10/30/14) EMERGENCY DEPT VISIT (10/28/14) EMERGENCY DEPT VISIT (10/28/14) FIBRIN DEGRADATION QUANT (01/31/19) HOT OR COLD PACKS THERAPY (07/08/15) HYDRATE IV INFUSION ADD-ON (03/03/19) HYDRATION IV INFUSION INIT (03/03/19) IMMUNOHISTO ANTB 1ST STAIN (03/03/19) IMMUNOHISTO ANTB ADDL SLIDE (03/03/19) MANUAL THERAPY 1/> REGIONS (06/13/18) MEASURE BLOOD OXYGEN LEVEL (03/03/19) MECHANICAL TRACTION THERAPY (09/14/15) METABOLIC PANEL TOTAL CA (02/17/19) NEEDLE BIOPSY CHEST LINING (03/03/19) NJX INTERLAMINAR LMBR/SAC (04/30/19) ORTHOTIC MGMT&TRAING 1ST ENC (05/13/15) PROTHROMBIN TIME (03/03/19) PT EVAL MOD COMPLEX 30 MIN (05/13/18) PT EVALUATION (09/14/15) RBC SED RATE NONAUTOMATED (02/17/19) ROUTINE VENIPUNCTURE (03/03/19) TEMPORAL ARTERY PROCEDURE (11/27/17) THER/PROPH/DIAG INJ SC/IM (02/17/19) THERAPEUTIC EXERCISES (09/14/15) TISSUE EXAM BY PATHOLOGIST (03/03/19) ULTRASOUND THERAPY (06/13/18) URINALYSIS AUTO W/SCOPE (01/31/19) US EXAM ABDO BACK WALL BARRY (04/20/17) X-RAY EXAM CHEST 1 VIEW (03/03/19) X-RAY EXAM OF SHOULDER (01/31/19) X-RAY EXAM OF WRIST (02/17/19) (1) Polyarthropathy or polyarthritis of multiple sites SNOMED Code(s): 42406564 Code(s): M13.0 - POLYARTHRITIS, UNSPECIFIED Current Visit: Yes Problem List Initiated/Reviewed/Updated: Yes My Orders Last 24 Hours: My Active Orders 06/16/19 12:42 CULTURE BODY FLUID + SMEAR [RM] Routine Plan: No further treatment indicated from my standpoint, unfortunately we do not have a definitive diagnosis. Presumptive Dx pseudogout, can treat symptomatically as needed.
--- NOTE | 2019-06-17 14:15 | PCM.DCSUM1 ---
Discharge Summary - Hospital Course Brief History: Ms. 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 - Discharge Data Discharge Date: 06/17/19 Discharge Disposition: Home, Self-Care 01 Condition: Fair - Referral to Home Health Primary Care Physician: Lin Sinclair MD - Discharge Diagnosis/Problem(s) (1) General weakness SNOMED Code(s): 71598015 ICD Code: R53.1 - WEAKNESS Status: Acute Current Visit: Yes (2) Polyarthropathy or polyarthritis of multiple sites SNOMED Code(s): 25713736 ICD Code: M13.0 - POLYARTHRITIS, UNSPECIFIED Status: Acute Current Visit : Yes (3) Lung cancer SNOMED Code(s): 826128848 ICD Code: C34.90 - MALIGNANT NEOPLASM OF UNSP PART OF UNSP BRONCHUS OR LUNG Status: Chronic Current Visit: Yes Qualifiers: Laterality: left Lung location: upper lobe of lung Qualified Code(s): C34.12 - Malignant neoplasm of upper lobe, left bronchus or lung - Patient Summary/Data Consults: Consultations 06/16/19 07:00 PT Evaluation and Treatment [CONS] Routine Please Evaluate and Treat. PT Reason for Consult: Strengthening This query below is only for informational purposes and is not editable. 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 Lowery presented to the emergency room with fatigue, weakness as well as acute pain in the left wrist and right knee. She has been slowly going downhill after completing her radiation therapy about 1 month ago. She has suffered from progressive fatigue, poor appetite and excessive somnolence. She has lost about 14 pounds. She has had a slow progression in her back pain and weakness. Over the past several days she has had acute pain in the left wrist as well as the right knee. This morning she noted erythema and warmth of both the left wrist and the right knee. Pain is described as achy pain that is moderately severe. There are some sharp shooting pains. She has been using Tylenol without much improvement in the pain. Any sort of movement of these joints or pressure on the joints makes the pain worse. Pain does get better when she sits still in a recliner. Pain has been steadily been getting worse. She does not think she has had any fevers but is always chilled. She had a similar episode of this polyarthritis several months ago and this improved with 2 weeks of prednisone. Work-up in the emergency room revealed warm and inflamed left wrist and right knee. Sedimentation rate was greater than 100 and CRP was more than 24. Inflammatory arthropathy such as pseudogout or possibly an autoimmune condition is suspected. She has received Solu-Medrol in the emergency room and will be admitted for further work-up and management. On admission she was given IV fluids for hydration. Laboratory studies were drawn and sent to evaluate for several types of inflammatory arthritis. She was transitioned to oral prednisone the day after admission. She was seen and evaluated by Dr. Bailey, who performed aspiration of the right knee and also injected corticosteroid. Unfortunately aspiration clotted and was unable to be evaluated for cell count or crystals. By the next day her symptoms had totally resolved with no further inflammation in the wrist or the knee. She was seen and evaluated by physical therapy and was ambulating semi-independently prior to discharge. Laboratory studies for evaluation of inflammatory arthritis are still pending at the time of discharge. Follow-up appointment will be scheduled with her primary care provider within 1 week. Sisi will be as tolerated and she will resume her usual diet. She will be discharged on prednisone 20 mg daily for an additional 10 days. - Patient Instructions Diet: Usual Diet as Tolerated Activity: As Tolerated Other/Special Instructions: Please schedule follow-up appointment with primary care provider within 1 month. - Discharge Plan *PRESCRIPTION DRUG MONITORING PROGRAM REVIEWED*: Not Applicable *COPY OF PRESCRIPTION DRUG MONITORING REPORT IN PATIENT ROMANA: Not Applicable Prescriptions/Med Rec: predniSONE 20 mg PO WITHBREAKFAST #10 tablet Home Medications: Home Meds Calcium Carb & Citrate/Vit D3 [Calcium + Vitamin D3 Caplet] 1 tab PO DAILY 03/04 [History] Fluticasone/Salmeterol [Advair 100-50] 1 puff INH BID 03/04/13 [History] Multivit with Calcium,Iron,Min [Therapeutic M] 1 tab PO DAILY 03/04/13 [History] Polyethylene Glycol 3350 [MiraLAX] 17 gm PO DAILY PRN 01/04/15 [History] Albuterol/Ipratropium [Combivent Respimat] 1 inhalation IH QID 08/21/18 [History ] Docusate Sodium [DOK] 100 mg PO DAILY 08/21/18 [History] Omeprazole Magnesium [Prilosec Otc] 20 mg PO BID PRN 08/21/18 [History] Vit C/E/Zn/Coppr/Lutein/Zeaxan [Preservision Areds 2 Softgel] 1 each PO BID 11/01 [History] Acetaminophen [Tylenol] 2 tab PO Q4H PRN 02/28/19 [History] Diclofenac Sodium [Voltaren] 4 g TP QID 02/28/19 [History] traMADol [Ultram] 50 mg PO Q6H PRN 06/15/19 [History] predniSONE 20 mg PO WITHBREAKFAST #10 tablet 06/17/19 [Rx] Referrals: Lin Sinclair MD [Primary Care Provider] - - Discharge Summary/Plan Comment DC Time >30 min.: No - Patient Data Vitals - Most Recent: Last Vital Signs Temp 97.9 F 06/17/19 10:32 Pulse 69 06/17/19 10:32 Resp 18 06/17/19 10:32 BP 149/78 H 06/17/19 10:32 Pulse Ox 96 06/17/19 10:32 Weight - Most Recent: 109 lb 15.994 oz I&O - Last 24 hours: Intake & Output 06/16/19 06/17/19 06/17/19 22:59 06:59 14:59 Intake Total 640 640 Balance 640 640 Lab Results - Last 24 hrs: Laboratory Results - last 24 hr 06/16/19 Range/Units 13:09 Synovial Crystals Note: (None seen) AYANNA Results - Last 24 hrs: Microbiology 06/16/19 12:42 Gram Stain - Final Joint / Synovial Fluid - Knee, Right Med Orders - Current: Current Medications Acetaminophen (Tylenol Extra Strength) 1,000 mg PO TID [facility] Last Admin: 06/17/19 13:09 Dose: 1,000 mg Albuterol (Proventil Neb Soln) 2.5 mg NEB Q4H PRN PRN Reason: Shortness Of Breath/wheezing Lorazepam (Ativan) 0.5 mg IVPUSH Q4H PRN PRN Reason: Nausea/Vomiting Magnesium Hydroxide (Milk Of Magnesia) 30 ml PO Q12H PRN PRN Reason: Constipation Last Admin: 06/15/19 20:17 Dose: 30 ml Melatonin (Melatonin) 9 mg PO BEDTIME [facility] Last Admin: 06/16/19 20:31 Dose: 9 mg Ondansetron HCl (Zofran Odt) 4 mg PO Q6H PRN PRN Reason: Nausea able to take PO Last Admin: 06/15/19 20:15 Dose: 4 mg Ondansetron HCl (Zofran) 4 mg IV Q6H PRN PRN Reason: Nausea/Vomiting Pantoprazole Sodium (Protonix) 40 mg PO BIDAC [facility] Last Admin: 06/17/19 08:24 Dose: 40 mg Polyethylene Glycol (Miralax) 17 gm PO BEDTIME [facility] Last Admin: 06/16/19 20:32 Dose: 17 gm Prednisone (Prednisone) 40 mg PO WITHBREAKFAST [facility] Last Admin: 06/17/19 08:24 Dose: 40 mg Fluticasone/Salmeterol (Fluticasone-Salmeterol 55-14 Mcg Powder Inh) 1 puff INH BID [facility] Last Admin: 06/17/19 08:25 Dose: 1 puff Senna/Docusate Sodium (Senna Plus) 1 tab PO BID PRN PRN Reason: Constipation Last Admin: 06/15/19 20:16 Dose: 1 tab Tramadol HCl (Ultram) 50 mg PO Q6H PRN PRN Reason: Pain Last Admin: 06/15/19 20:16 Dose: 50 mg Discontinued Medications Sodium Chloride (Normal Saline) 1,000 mls @ 999 mls/hr IV .BOLUS STA Stop: 06/15/19 15:44 Last Admin: 06/15/19 15:00 Dose: 999 mls/hr Methylprednisolone Sodium Succinate 125 mg/ Dextrose/Water 102 mls @ 200 mls/ hr IV ONETIME ONE Stop: 06/15/19 17:18 Last Admin: 06/15/19 17:13 Dose: 200 mls/hr Sodium Chloride (Normal Saline) 1,000 mls @ 125 mls/hr IV ASDIRECTED [facility] Last Admin: 06/16/19 10:41 Dose: 125 mls/hr - Exam Quality Assessment: Reports: DVT Prophylaxis General: Reports: Alert, Oriented, Cooperative, No Acute Distress Lungs: Reports: Clear to Auscultation, Normal Respiratory Effort Cardiovascular: Reports: Regular Rate, Regular Rhythm, No Murmurs GI/Abdominal Exam: Soft, Non-Tender, No Organomegaly, No Distention Extremities: Other (Resolution of left wrist and right knee swelling with erythema and tenderness)
[2019-06-18 10:09] LABS: LYME IGG/IGM AB <0.91 ISR (0.00-0.90)
== END 2019-06-17 15:09 | disposition home or self-care (01) | DRG 554 ==
LOC: JP.ED 13:59 → JP.MS 18:12
PROVIDERS: ADMIT Internal Medicine; ATTEND Internal Medicine
PROC: 0S9C3ZZ Drainage of Right Knee Joint, Percutaneous Approach (ICD-10-PCS; principal; 2019-06-16)
DX: R53.1 Weakness (principal); R06.02 Shortness of breath; M19.90 Unspecified osteoarthritis, unspecified site; M17.11 Unilateral primary osteoarthritis, right knee; C34.12 Malignant neoplasm of upper lobe, left bronchus or lung; K59.09 Other constipation; Z86.010 Personal history of colon polyps; H54.7 Unspecified visual loss; Z66 Do not resuscitate; M48.061 Spinal stenosis, lumbar region without neurogenic claudication; J44.9 Chronic obstructive pulmonary disease, unspecified; L51.1 Stevens-Johnson syndrome; R91.1 Solitary pulmonary nodule; M54.2 Cervicalgia; M19.032 Primary osteoarthritis, left wrist; G89.29 Other chronic pain; M54.9 Dorsalgia, unspecified; M81.0 Age-related osteoporosis without current pathological fracture; Z85.828 Personal history of other malignant neoplasm of skin; Z98.49 Cataract extraction status, unspecified eye; Z87.891 Personal history of nicotine dependence; Z88.2 Allergy status to sulfonamides; Z88.0 Allergy status to penicillin; Z91.040 Latex allergy status; Z88.8 Allergy status to other drugs, medicaments and biological substances; Z79.51 Long term (current) use of inhaled steroids; Z79.899 Other long term (current) drug therapy
CPT/HCPCS: 36415; 71045; 73100; 73560; 80053; 81001; 83605; 83735; 84484; 84550; 85025; 85651; 86140; 93005; 96361; 96365; 99285; J2930; J7030; J7060; 80048; 85027; 86038; 86200; 86225; 86255; 86618; 87070; 87205; 89060; 93010; 94640; 97162-GP; 97530-GP; 97535-GP; 99284; A9270-GY

== ENCOUNTER 2019-09-16 15:34 | Emergency (ER) | payer MEDICARE, OTHER ==
[2019-09-16] MEDS ORDERED: Sodium Chloride 0.9% 1,000 ML IV SCH (16:15)
[2019-09-16] MEDS ORDERED: Acetaminophen/oxyCODONE 325-5 MG Tab PO PRN (16:19)
--- NOTE | 2019-09-16 16:30 | EDM.PDOC ---
ED HPI GENERAL MEDICAL PROBLEM - General Chief Complaint: General Time Seen by Provider: 09/16/19 15:50 Source of Information: Reports: Patient, Family History Limitations: Reports: No Limitations - History of Present Illness INITIAL COMMENTS - FREE TEXT/NARRATIVE: 79-year-old female with generalized pain, recurring muscle contractions, spasm, hip pain, weight loss and weakness. She is being followed for arthritis in her back and hip as well as spinal stenosis, went into the clinic today to get a blood test which she became lightheaded and felt she was going to pass out. The later on the floor, she complained of some upper abdominal and chest discomfort so the ambulance was called. EKG was negative. Denies shortness of breath or nausea. Her main concern is her chronic and persistent recurring pain , muscle spasms, weakness and weight loss. Onset: Unknown/Unsure Duration: Chronic Associated Symptoms: Reports: Malaise, Syncope, Weakness, Other (Abdomen and back pain). Denies: Chest Pain, Cough, Headaches - Related Data Allergies Allergy/AdvReac Type Severity Reaction Status Date / Time Sulfa (Sulfonamide Allergy Severe Hives Verified 09/16/19 15:38 Antibiotics) hylan G-F 20 [From Triage] Allergy Intermediate n&v, Verified 09/16/19 15:38 swelling,joint pain,muscle pain Penicillins Allergy Hives Verified 09/16/19 15:38 latex gloves Allergy Rash Uncoded 09/16/19 15:38 Home Meds: Home Meds Calcium Carb & Citrate/Vit D3 [Calcium + Vitamin D3 Caplet] 1 tab PO DAILY 03/04 [History] Fluticasone/Salmeterol [Advair 100-50] 1 puff INH BID 03/04/13 [History] Multivit with Calcium,Iron,Min [Therapeutic M] 1 tab PO DAILY 03/04/13 [History] Polyethylene Glycol 3350 [MiraLAX] 17 gm PO DAILY PRN 01/04/15 [History] Albuterol/Ipratropium [Combivent Respimat] 1 inhalation IH QID 08/21/18 [History ] Omeprazole Magnesium [Prilosec Otc] 20 mg PO BID PRN 08/21/18 [History] Vit C/E/Zn/Coppr/Lutein/Zeaxan [Preservision Areds 2 Softgel] 1 each PO BID 11/01 [History] Acetaminophen [Tylenol] 650 mg PO Q4H PRN 02/28/19 [History] Diclofenac Sodium [Voltaren] 4 g TP QID 02/28/19 [History] traMADol [Ultram] 50 mg PO BID 08/27/19 [History] Ibuprofen [Advil] 200 mg PO DAILY PRN 09/16/19 [History] Past Medical History HEENT History: Reports: Cataract, Impaired Vision, Sinusitis, Other (See Below) Other HEENT History: wears glasses, seasonal allergies Cardiovascular History: Reports: Aneurysm Respiratory History: Reports: COPD Gastrointestinal History: Reports: Chronic Constipation, Colon Polyp, Hemorrhoids, Jaundice, Other (See Below) Other Gastrointestinal History: hepatitis over40 years ago when Genitourinary History: Reports: UTI, Recurrent [employer] History: Reports: Musculoskeletal History: Reports: Arthritis, Back Pain, Chronic, Neck Pain, Chronic, Osteoarthritis, Other (See Below) Other Musculoskeletal History: lumbar stenosis Neurological History: Reports: None Endocrine/Metabolic History: Reports: Osteoporosis Immunologic History: Reports: Other (See Below) Other Immunologic History: Ej-Sebastián syndrome. Oncologic (Cancer) History: Reports: Basal Cell Carcinoma, Lung, Squamous Cell Carcinoma Dermatologic History: Reports: Eczema, Other (See Below) Other Dermatologic History: eczema. Ej Sebastián syndrome - Infectious Disease History Infectious Disease History: Reports: Chicken Pox, Measles, Mumps Other Infectious Disease History: Hepatitis unknown type - Past Surgical History HEENT Surgical History: Reports: Cataract Surgery Cardiovascular Surgical History: Reports: AAA Repair, Aneurysm Other Cardiovascular Surgeries/Procedures: aueurysm surgery end of July 2017 endoleak aortic graft GI Surgical History: Reports: Colonoscopy, EGD, Other (See Below) Other GI Surgeries/Procedures: Abdominal aneurysm July 2017 Female Surgical History: Reports: None Neurological Surgical History: Reports: C-Spine Musculoskeletal Surgical History: Reports: None Oncologic Surgical History: Reports: None Dermatological Surgical History: Reports: Skin Biopsy Social & Family History - Family History Family Medical History: Noncontributory - Tobacco Use Smoking Status *Q: Never Smoker - Caffeine Use Caffeine Use: Reports: Coffee ED ROS GENERAL - Review of Systems Review Of Systems: See Below Constitutional: Reports: Malaise, Decreased Appetite, Weight Loss. Denies: Fever, Chills HEENT: Reports: Hearing Loss. Denies: Throat Pain, Vision Change Respiratory: Denies: Shortness of Breath, Cough Cardiovascular: Denies: Chest Pain, Palpitations GI/Abdominal: Reports: Abdominal Pain, Decreased Appetite. Denies: Vomiting : Reports: No Symptoms Musculoskeletal: Reports: Back Pain, Leg Pain, Other (Hip pain, chronic, left worse than right) Skin: Denies: Pallor, Erythema Neurological: Reports: Paresthesia (Significant persistent paresthesias and numbness radiating down the left leg to the left foot) ED EXAM, GENERAL - Physical Exam Exam: See Below Exam Limited By: No Limitations General Appearance: Alert, No Apparent Distress Eye Exam: Bilateral Eye: EOMI Head: Atraumatic Neck: Supple, Non-Tender Respiratory/Chest: Lungs Clear, Other (Almost anywhere on the anterior chest wall that is palpated causes discomfort and focal pain) Cardiovascular: Regular Rate, Rhythm. No: Tachycardia, Extra Beats GI/Abdominal: Guarding, Other (Diffuse tenderness to palpation, no focal tenderness). No: Distended Extremities: No: Pedal Edema Neurological: Alert, Oriented, No Motor/Sensory Deficits (Able to move extremities with equal strength, ambulates without difficulty) Psychiatric: Normal Affect, Normal Mood Skin Exam: Warm, Dry Course - Vital Signs Last Recorded V/S: Last Vital Signs Temp 96.9 F 09/16/19 15:35 Pulse 72 09/16/19 17:47 Resp 16 09/16/19 16:17 BP 164/92 H 09/16/19 17:47 Pulse Ox 97 09/16/19 17:47 - Orders/Labs/Meds Labs: Laboratory Tests 09/16/19 09/16/19 09/16/19 Range/Units 16:13 16:20 16:20 WBC 10.4 (4.5-11.0) K/uL RBC 3.79 (3.30-5.50) M/uL Hgb 12.9 (12.0-15.0) g/dL Hct 38.4 (36.0-48.0) % MCV 101 H (80-98) fL MCH 34 H (27-31) pg MCHC 34 (32-36) % Plt Count 271 (150-400) K/uL Neut % (Auto) 65 (36-66) % Lymph % (Auto) 26 (24-44) % Bay % (Auto) 7 H (2-6) % Eos % (Auto) 1 L (2-4) % Baso % (Auto) 0 (0-1) % Sodium 143 (140-148) mmol/L Potassium 4.0 (3.6-5.2) mmol/L Chloride 105 (100-108) mmol/L Carbon Dioxide 30 (21-32) mmol/L Anion Gap 8.2 (5.0-14.0) mmol/L BUN 23 H (7-18) mg/dL Creatinine 1.1 H (0.6-1.0) mg/dL Est Cr Clr Drug Dosing 29.50 mL/min Estimated GFR (MDRD) 48 L (>60) Glucose 88 (74-106) mg/dL Calcium 8.8 (8.5-10.1) mg/dL Magnesium 2.1 (1.8-2.4) mg/dL Total Bilirubin 0.5 (0.2-1.0) mg/dL AST 16 (15-37) U/L ALT 21 (12-78) U/L Alkaline Phosphatase 108 (46-116) U/L Creatine Kinase 23 L (26-192) U/L Total Protein 7.1 (6.4-8.2) g/dL Albumin 3.1 L (3.4-5.0) g/dL Globulin 4.0 H (2.3-3.5) g/dL Albumin/Globulin Ratio 0.8 L (1.2-2.2) Urine Color (YELLOW) Urine Appearance (CLEAR) Urine pH (5.0-8.0) Ur Specific Sigel (1.008-1.030) Urine Protein (NEGATIVE) mg/dL Urine Glucose (UA) (NEGATIVE) mg/dL Urine Ketones (NEGATIVE) mg/dL Urine Occult Blood (NEGATIVE) Urine Nitrite (NEGATIVE) Urine Bilirubin (NEGATIVE) Urine Urobilinogen (0.2-1.0) EU/dL Ur Leukocyte Esterase (NEGATIVE) Urine RBC (0-5) Urine WBC (0-5) Ur Epithelial Cells Amorphous Sediment Urine Bacteria Urine Mucus 09/16/19 Range/Units 17:27 WBC (4.5-11.0) K/uL RBC (3.30-5.50) M/uL Hgb (12.0-15.0) g/dL Hct (36.0-48.0) % MCV (80-98) fL MCH (27-31) pg MCHC (32-36) % Plt Count (150-400) K/uL Neut % (Auto) (36-66) % Lymph % (Auto) (24-44) % Bay % (Auto) (2-6) % Eos % (Auto) (2-4) % Baso % (Auto) (0-1) % Sodium (140-148) mmol/L Potassium (3.6-5.2) mmol/L Chloride (100-108) mmol/L Carbon Dioxide (21-32) mmol/L Anion Gap (5.0-14.0) mmol/L BUN (7-18) mg/dL Creatinine (0.6-1.0) mg/dL Est Cr Clr Drug Dosing mL/min Estimated GFR (MDRD) (>60) Glucose (74-106) mg/dL Calcium (8.5-10.1) mg/dL Magnesium (1.8-2.4) mg/dL Total Bilirubin (0.2-1.0) mg/dL AST (15-37) U/L ALT (12-78) U/L Alkaline Phosphatase (46-116) U/L Creatine Kinase (26-192) U/L Total Protein (6.4-8.2) g/dL Albumin (3.4-5.0) g/dL Globulin (2.3-3.5) g/dL Albumin/Globulin Ratio (1.2-2.2) Urine Color Yellow (YELLOW) Urine Appearance Clear (CLEAR) Urine pH 7.0 (5.0-8.0) Ur Specific Sigel 1.025 (1.008-1.030) Urine Protein Negative (NEGATIVE) mg/dL Urine Glucose (UA) Negative (NEGATIVE) mg/dL Urine Ketones Negative (NEGATIVE) mg/dL Urine Occult Blood Trace-intact H (NEGATIVE) Urine Nitrite Negative (NEGATIVE) Urine Bilirubin Negative (NEGATIVE) Urine Urobilinogen 0.2 (0.2-1.0) EU/dL Ur Leukocyte Esterase Trace H (NEGATIVE) Urine RBC 5-10 H (0-5) Urine WBC 0-5 (0-5) Ur Epithelial Cells Not seen Amorphous Sediment Few Urine Bacteria Not seen Urine Mucus Not seen Meds: Medications Discontinued Medications Generic Name Dose Route Start Last Admin Trade Name Freq PRN Reason Stop Dose Admin Sodium Chloride 1,000 mls @ 1,000 mls/hr 09/16/19 16:15 09/16/19 16:39 Normal Saline IV 1,000 mls/hr ASDIRECTED MARY Administration Oxycodone/Acetaminophen 1 tab 09/16/19 16:19 09/16/19 16:39 Percocet 325-5 Mg PO 1 tab ONETIME PRN Administration Pain (moderate 4-6) - Re-Assessments/Exams Free Text/Narrative Re-Assessment/Exam: 09/16/19 16:32 A long discussion on pain control was done with the patient. Ultrasound of the abdomen showed no dilatation of the aorta, liver and gallbladder look normal. Patient will be given 1 L normal saline, CBC, CMP, CK were obtained as well as a mini cath UA. Also magnesium. Patient was given 1 5 mg Percocet to see if some pain control can be obtained by the time the fluids are done and labs are back. 09/16/19 17:11 Mini cath UA was attempted and the patient's bladder was completely empty. Another attempt will be made after some fluids. 09/16/19 17:31 After 500 cc of normal saline IV, we were able to get an intra-bladder UA specimen by mini catheterization. CBC is normal, CK is not elevated and her CMP is remarkably reassuringly normal except for likely mild dehydration with a slightly low GFR, slightly elevated BUN and creatinine, magnesium is also normal. 09/16/19 17:46 Patient felt much better after the IV hydration and the pain pill after 45 minutes was very helpful, she had much less muscle spasms and pain. She was discharged with 10 doses to use 1 every 4 hours as needed and can follow-up with her primary in the next week to 2 weeks. Departure - Departure Time of Disposition: 18:13 Disposition: Home, Self-Care 01 Clinical Impression: Dehydration, Weakness Chronic pain Qualifiers: Chronic pain type: other chronic pain Qualified Code(s): G89.29 - Other chronic pain - Discharge Information Instructions: Dehydration, Adult, Rsyf-hw-Kono Referrals: PCP,None [Primary Care Provider] - Forms: ED Department Discharge Care Plan Goals: Use pain medication as prescribed, and try to stay hydrated and increase diet and activity as tolerated. Recheck in 5 to 10 days to assess progress and response to the pain medications. Return sooner if worsening such as fever, nausea or vomiting or increased pain. Sepsis Event Note - Evaluation Sepsis Screening Result: No Definite Risk - Focused Exam Date Exam was Performed: 09/20/19 Time Exam was Performed: 07:08
[2019-09-16 17:48] VITALS: BP 164/92; PULSE 72
== END 2019-09-16 18:13 | disposition home or self-care (01) ==
LOC: JP.ED 15:34
DX: E86.0 Dehydration (principal); J44.9 Chronic obstructive pulmonary disease, unspecified; Z88.2 Allergy status to sulfonamides; Z88.0 Allergy status to penicillin; Z91.040 Latex allergy status; Z88.8 Allergy status to other drugs, medicaments and biological substances; Z79.899 Other long term (current) drug therapy
CPT/HCPCS: 36415; 80053; 81001; 82550; 83735; 85025; 96360; 99285; A9270; J7030

== ENCOUNTER 2020-06-21 13:10 | Emergency (ER) | payer MEDICARE, OTHER ==
[2020-06-21] MEDS ORDERED: Ondansetron 4 MG/2 ML SDV IVPUSH ONE (13:54)
[2020-06-21] MEDS ORDERED: HYDROmorphone 0.5 MG/0.5 ML Syringe IVPUSH ONE (13:55)
[2020-06-21] MEDS ORDERED: Pantoprazole 40 MG Vial IVPUSH ONE (13:56)
[2020-06-21] MEDS ORDERED: Sodium Chloride 0.9% 1,000 ML IV SCH ×2 (14:00→18:00)
[2020-06-21] MEDS ORDERED: Acetaminophen 325 MG Tab PO ONE (14:56)
--- NOTE | 2020-06-21 15:24 | CR ---
Abdomen Series w Chest 1V CLINICAL HISTORY: SOB and upper abdominal pain FINDINGS: There is a curvilinear density in the left medial chest which appears to be posteriorly because of silhouetting of the descending thoracic aorta. There is some volume loss in the left hemithorax. This is likely some left lower lobe atelectasis. Lungs are hyperaerated. No free air is identified. There is gas and feces throughout the colon. Small intestinal gas pattern is nonacute. Patient has had aorto iliac stent grafting. There is a uterine fibroid in the right low pelvis IMPRESSION: Probable left lower lobe atelectasis of unknown etiology. Nonacute intestinal gas pattern
[2020-06-21 17:18] VITALS: BP 139/82; PULSE 62
[2020-06-21] MEDS ORDERED: Sodium Chloride 0.9% 10 ML Syringe FLUSH ONE (18:07)
[2020-06-21] MEDS ORDERED: Iopamidol 755 Mg/ML 100 ML Bottle IV SCH (18:15)
[2020-06-21] MEDS ORDERED: Sodium Chloride 0.9% 100 ML IV SCH (18:15)
--- NOTE | 2020-06-21 19:43 | CRLCT ---
INDICATION: Market increase in shortness of breath, elevated D-dimer TECHNIQUE: CT chest pulmonary PE protocol acquired with 100 cc Isovue 370 IV contrast. COMPARISON: Chest radiograph from earlier today FINDINGS: Cardiovascular structures: Normal vascular enhancement of the pulmonary arteries, no sign of pulmonary embolism. Cardiomegaly. Coronary artery calcifications. Ectasia of the ascending aorta measuring 3.7 cm, stable. Mediastinum and cee: No mass or adenopathy. Lungs: Complete left lower lobe atelectasis. Questionable increased intraluminal soft tissue density at the origin of the left lower lobe bronchus. This is best seen on image 66 series 11. There is some right lower lobe peribronchial thickening. In 6 mm pulmonary nodule in the left upper lobe on image 44 series 11. There is a punctate central calcification within the nodule. Mild emphysematous changes. Scattered areas of linear atelectasis or scarring. 7 mm pulmonary nodule left upper lobe image 76 series 11. 4 mm pulmonary nodule right upper lobe image 37 series 11. Pleura and pericardium: No effusions. Chest wall and axilla: No mass or adenopathy. Upper abdomen: Left renal cysts, both cortical and pelvic. Significant calcifications at the origin of the superior mesenteric artery. The artery does remain patent. Bones: No significant findings. IMPRESSION: No pulmonary embolism or pneumonia. Complete atelectasis of the left lower lobe with questionable intraluminal increased soft tissue density at the origin of the left lower lobe bronchus. Consider bronchoscopy for further evaluation. Several pulmonary nodules. Recommend comparison with prior Chest CT when it becomes available; currently unavailable in PACS. Coronary artery disease. Emphysema. Please note that all CT scans at this facility use dose modulation, iterative reconstruction, and/or weight-based dosing when appropriate to reduce radiation dose to as low as reasonably achievable. Dictated by Lin Sharpe MD @ Jun 21 2020 7:00PM (Electronically Signed)
--- NOTE | 2020-06-21 20:04 | EDM.PDOC ---
<Bryant Callahan - Last Filed: 06/21/20 20:55> ED HPI GENERAL MEDICAL PROBLEM - General Chief Complaint: Respiratory Problem Stated Complaint: TROUBLE BREATHING Time Seen by Provider: 06/21/20 14:20 - Related Data Allergies Allergy/AdvReac Type Severity Reaction Status Date / Time Sulfa (Sulfonamide Allergy Severe Hives Verified 06/21/20 14:21 Antibiotics) hylan G-F 20 [From [employer]] Allergy Intermediate n&v, Verified 06/21/20 14:21 swelling,joint pain,muscle pain Penicillins Allergy Hives Verified 06/21/20 14:21 latex gloves Allergy Rash Uncoded 06/21/20 14:21 Home Meds: Home Meds Calcium Carb & Citrate/Vit D3 [Calcium + Vitamin D3 Caplet] 1 tab PO DAILY 03/04/13 [History] Fluticasone/Salmeterol [Advair 100-50] 1 puff INH BID 03/04/13 [History] Multivit with Calcium,Iron,Min [Therapeutic M] 2 tab PO DAILY 03/04/13 [History] Polyethylene Glycol 3350 [MiraLAX] 17 gm PO DAILY PRN 01/04/15 [History] Albuterol/Ipratropium [Combivent Respimat] 1 inhalation IH QID 08/21/18 [History] Omeprazole Magnesium [Prilosec Otc] 20 mg PO BID PRN 08/21/18 [History] Vit C/E/Zn/Coppr/Lutein/Zeaxan [Preservision Areds 2 Softgel] 1 each PO BID 11/20/18 [History] Acetaminophen [Tylenol] 650 mg PO Q4H PRN 02/28/19 [History] Diclofenac Sodium [Voltaren] 4 g TP QID 02/28/19 [History] Colchicine 0.3 mg PO BID 06/21/20 [History] fentaNYL [Duragesic] 1 patch TD Q72H 06/21/20 [History] Past Medical History HEENT History: Reports: Cataract, Impaired Vision, Sinusitis, Other (See Below) Other HEENT History: wears glasses, seasonal allergies Cardiovascular History: Reports: Aneurysm Respiratory History: Reports: COPD Gastrointestinal History: Reports: Chronic Constipation, Colon Polyp, Hemorrhoids, Jaundice, Other (See Below) Other Gastrointestinal History: hepatitis over40 years ago when Genitourinary History: Reports: UTI, Recurrent 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 Oncologic (Cancer) History: Reports: Basal Cell Carcinoma, Lung, Squamous Cell Carcinoma Dermatologic History: Reports: Eczema, Other (See Below) Other Dermatologic History: eczema. Ej Sebastián syndrome - Infectious Disease History Infectious Disease History: Reports: Chicken Pox, Measles, Mumps Other Infectious Disease History: Hepatitis unknown type - Past Surgical History HEENT Surgical History: Reports: Cataract Surgery Cardiovascular Surgical History: Reports: AAA Repair, Aneurysm Other Cardiovascular Surgeries/Procedures: aueurysm surgery end of July 2017 endoleak aortic graft Respiratory Surgical History: Reports: None GI Surgical History: Reports: Colonoscopy, EGD, Other (See Below) Other GI Surgeries/Procedures: Abdominal aneurysm July 2017 Female Surgical History: Reports: None Endocrine Surgical History: Reports: None Neurological Surgical History: Reports: C-Spine Musculoskeletal Surgical History: Reports: None Oncologic Surgical History: Reports: None Dermatological Surgical History: Reports: Skin Biopsy Social & Family History - Family History Family Medical History: No Pertinent Family History - Caffeine Use Caffeine Use: Reports: Coffee Course - Re-Assessments/Exams Free Text/Narrative Re-Assessment/Exam: 06/21/20 20:02 Care turned over from Dr. Ang pending CT of the chest. Results are below IMPRESSION: No pulmonary embolism or pneumonia. Complete atelectasis of the left lower lobe with questionable intraluminal increased soft tissue density at the origin of the left lower lobe bronchus. Consider bronchoscopy for further evaluation. Several pulmonary nodules. Recommend comparison with prior Chest CT when it becomes available; currently unavailable in PACS. Coronary artery disease. Emphysema. This was discussed with the patient and her daughter. Apparently an oncologist in [place] has been following this left lower lobe with serial CT scans and she is scheduled to have another one on July 08. The images were sent to [place] and they will call their oncologist tomorrow so he can review and compare the films, I think she should be evaluated sooner as this likely is recurrence of cancer Departure - Departure Time of Disposition: 20:23 Disposition: Home, Self-Care 01 Clinical Impression: Shortness of breath on exertion, Atelectasis of left lung, SOB (shortness of breath) - Discharge Information Instructions: Atelectasis, Adult, Shortness of Breath, Adult Referrals: Lin Sinclair MD [Primary Care Provider] - Forms: ED Department Discharge Care Plan Goals: Rest tonight, activity as tolerated and call your regular doctor tomorrow to review your CAT scan and compare them to your previous. You will likely need a work-up fairly soon. Sepsis Event Note (ED) - Evaluation Sepsis Screening Result: No Definite Risk <Sara nAg - Last Filed: 06/23/20 14:49> ED HPI GENERAL MEDICAL PROBLEM - General Source of Information: Reports: Patient, Family History Limitations: Reports: No Limitations - History of Present Illness INITIAL COMMENTS - FREE TEXT/NARRATIVE: PT WAS SEEN AT [facility] TODAY AND AHE WAS VERY SHORT OF BREATH. sHE HAS BEEN NOTING THAT THIS HAS INCREASED ON THE PAST 10 DAYS. sHE HAS A KNOWN HISTORY OF cA OF THE LUNG WHICH WAS TREATED WITH INTENSIVE RADIATION. sHE IS DUE TO SEE dR Clemons. Onset: Gradual, Other ( INCREASING OVER THE LAST 10 DAYS. ) Duration: Hour(s): Location: Reports: Chest, Generalized, Other (PT HAS NOT HAD A GOOD APPETOITE) Associated Symptoms: Reports: Shortness of Breath, Other (PT NOTES POOR EXERCISE TOLERANCE. ) ED ROS GENERAL - Review of Systems Review Of Systems: See Below Constitutional: Reports: Weakness, Decreased Appetite HEENT: Reports: No Symptoms Respiratory: Reports: Shortness of Breath, Cough Cardiovascular: Reports: No Symptoms Endocrine: Reports: No Symptoms GI/Abdominal: Reports: Other ( SHE HAS TENDERNESS IN THE UPPER ABDOMAN. sHE HAS BEEN QUITE CONSTIPATED. sHE HAS BEEN USING MIRALAX AND SHE WAS ADVISED TO DOUBLE THAT. ) : Reports: No Symptoms Musculoskeletal: Reports: No Symptoms Skin: Reports: No Symptoms Neurological: Reports: No Symptoms ED EXAM, GENERAL - Physical Exam Exam: See Below Free Text/Narrative:: PT ARRIVED WITH INCREASEING SOB. sHE HAS VERY POOR EXERCISE TOLERANCE. Exam Limited By: No Limitations General Appearance: Alert, Mild Distress, Other (PUPILS ARE EQUAL AND REACTIVE. ) Ears: Normal TMs Nose: Normal Inspection Throat/Mouth: Normal Inspection Head: Atraumatic Neck: Normal Inspection Respiratory/Chest: Decreased Breath Sounds, Rales Cardiovascular: Regular Rate, Rhythm, Tachycardia GI/Abdominal: Other (PT IS TENDER IN THE MIDABDOMAN AND LEFT SIDE. sHE DOES APPEAR TO HAVE ALOT STOOL PRESENT. ) (Female) Exam: Deferred Rectal (Female) Exam: Deferred Back Exam: Normal Inspection Extremities: Normal Inspection Course - Vital Signs Last Recorded V/S: Last Vital Signs Temp 36.6 C 06/21/20 14:28 Pulse 62 06/21/20 16:58 Resp 18 06/21/20 14:28 BP 139/82 06/21/20 16:58 Pulse Ox 95 06/21/20 16:58 - Orders/Labs/Meds Labs: Laboratory Tests 06/21/20 06/21/20 06/21/20 Range/Units 14:56 15:16 15:16 WBC 7.0 (4.5-11.0) K/uL RBC 3.82 (3.30-5.50) M/uL Hgb 12.4 (12.0-15.0) g/dL Hct 38.2 (36.0-48.0) % MCV 100 H (80-98) fL MCH 33 H (27-31) pg MCHC 33 (32-36) % Plt Count 290 (150-400) K/uL Neut % (Auto) 59 (36-66) % Lymph % (Auto) 30 (24-44) % Quay % (Auto) 9 H (2-6) % Eos % (Auto) 2 (2-4) % Baso % (Auto) 0 (0-1) % D-Dimer, Quantitative (0.0-500.0) ng/mL Puncture Site Lt.radial ABG pH 7.446 (7.350-7.450) ABG pCO2 34.3 L (35.0-42.0) mmHg ABG pO2 74.9 L (75.0-100.0) mmHg ABG HCO3 23.2 (22.0-26.0) mmol/L ABG Total CO2 20.6 L (21.0-25.0) mmol/L ABG O2 Saturation 95.7 (95.0-98.0) % ABG O2 Content 16.7 (15.0-23.0) %vol ABG Base Excess 0.1 mm/L ABG Hemoglobin 12.6 (12.0-16.0) g/dL ABG Oxyhemoglobin 93.7 % ABG Carboxyhemoglobin 1.6 (0.0-1.6) % ABG Methemoglobin 0.5 % Henry Test Passed O2 Delivery Device Room air Sodium 141 (140-148) mmol/L Potassium 4.2 (3.6-5.2) mmol/L Chloride 103 (100-108) mmol/L Carbon Dioxide 28 (21-32) mmol/L Anion Gap 10.4 (5.0-14.0) mmol/L BUN 22 H (7-18) mg/dL Creatinine 1.1 H (0.6-1.0) mg/dL Est Cr Clr Drug Dosing 28.15 mL/min Estimated GFR (MDRD) 48 L (>60) Glucose 83 (74-106) mg/dL Calcium 9.2 (8.5-10.1) mg/dL Total Bilirubin 0.4 (0.2-1.0) mg/dL AST 17 (15-37) U/L ALT 15 (12-78) U/L Alkaline Phosphatase 103 (46-116) U/L Total Protein 6.4 (6.4-8.2) g/dL Albumin 3.0 L (3.4-5.0) g/dL Globulin 3.4 (2.3-3.5) g/dL Albumin/Globulin Ratio 0.9 L (1.2-2.2) 06/21/20 Range/Units 17:10 WBC (4.5-11.0) K/uL RBC (3.30-5.50) M/uL Hgb (12.0-15.0) g/dL Hct (36.0-48.0) % MCV (80-98) fL MCH (27-31) pg MCHC (32-36) % Plt Count (150-400) K/uL Neut % (Auto) (36-66) % Lymph % (Auto) (24-44) % Quay % (Auto) (2-6) % Eos % (Auto) (2-4) % Baso % (Auto) (0-1) % D-Dimer, Quantitative 1564.60 H (0.0-500.0) ng/mL Puncture Site ABG pH (7.350-7.450) ABG pCO2 (35.0-42.0) mmHg ABG pO2 (75.0-100.0) mmHg ABG HCO3 (22.0-26.0) mmol/L ABG Total CO2 (21.0-25.0) mmol/L ABG O2 Saturation (95.0-98.0) % ABG O2 Content (15.0-23.0) %vol ABG Base Excess mm/L ABG Hemoglobin (12.0-16.0) g/dL ABG Oxyhemoglobin % ABG Carboxyhemoglobin (0.0-1.6) % ABG Methemoglobin % Henry Test O2 Delivery Device Sodium (140-148) mmol/L Potassium (3.6-5.2) mmol/L Chloride (100-108) mmol/L Carbon Dioxide (21-32) mmol/L Anion Gap (5.0-14.0) mmol/L BUN (7-18) mg/dL Creatinine (0.6-1.0) mg/dL Est Cr Clr Drug Dosing mL/min Estimated GFR (MDRD) (>60) Glucose (74-106) mg/dL Calcium (8.5-10.1) mg/dL Total Bilirubin (0.2-1.0) mg/dL AST (15-37) U/L ALT (12-78) U/L Alkaline Phosphatase (46-116) U/L Total Protein (6.4-8.2) g/dL Albumin (3.4-5.0) g/dL Globulin (2.3-3.5) g/dL Albumin/Globulin Ratio (1.2-2.2) Meds: Medications Discontinued Medications Generic Name Dose Route Start Last Admin Trade Name Antonioq PRN Reason Stop Dose Admin Acetaminophen 650 mg 06/21/20 14:56 06/21/20 15:16 Tylenol PO 06/21/20 14:57 650 mg NOW ONE Administration Hydromorphone HCl 0.5 mg 06/21/20 13:55 06/21/20 14:23 Dilaudid IVPUSH 06/21/20 13:56 0.5 mg ONETIME ONE Administration Sodium Chloride 1,000 mls @ 300 mls/hr 06/21/20 14:00 06/21/20 14:21 Normal Saline IV 300 mls/hr ASDIRECTED MARY Administration Sodium Chloride 1,000 mls @ 300 mls/hr 06/21/20 18:00 Normal Saline IV ASDIRECTED MARY Sodium Chloride 100 mls @ 3 mls/sec 06/21/20 18:15 06/21/20 18:34 Normal Saline IV 3 mls/sec ASDIRECTED MARY Administration Iopamidol 100 ml 06/21/20 18:15 06/21/20 18:34 Isovue-370 (76%) IV 100 ml . DIRECTED MARY Administration Ondansetron HCl 4 mg 06/21/20 13:54 06/21/20 14:21 Zofran IVPUSH 06/21/20 13:55 4 mg ONETIME ONE Administration Pantoprazole Sodium 40 mg 06/21/20 13:56 06/21/20 14:26 Protonix Iv IVPUSH 06/21/20 13:57 40 mg ONETIME ONE Administration Sodium Chloride 10 ml 06/21/20 18:07 06/21/20 18:33 Saline Flush FLUSH 06/21/20 18:08 10 ml ONETIME ONE Administration
== END 2020-06-21 20:31 | disposition home or self-care (01) ==
LOC: JP.ED 13:10
DX: J98.11 Atelectasis (principal); J44.9 Chronic obstructive pulmonary disease, unspecified; Z88.2 Allergy status to sulfonamides; Z88.0 Allergy status to penicillin; Z91.040 Latex allergy status; Z79.899 Other long term (current) drug therapy
CPT/HCPCS: 36415; 36600; 71275; 74022; 80053; 82803; 85025; 85379; 93005; 96374; 96375; 99284; 99285; A9270; C9113; J1170; J2405; J7030; Q9967

== ENCOUNTER 2020-07-20 11:46 | Emergency (ER) | payer MEDICARE, OTHER ==
[2020-07-20 11:59] VITALS: BP 106/66; PULSE 71
[2020-07-20] MEDS ORDERED: Sodium Chloride 0.9% 10 ML Syringe FLUSH PRN (12:28)
[2020-07-20] MEDS ORDERED: Sodium Chloride 0.9% 1,000 ML IV ONE (12:28)
[2020-07-20] MEDS ORDERED: Acetaminophen 325 MG Tab PO ONE (12:29)
[2020-07-20] MEDS ORDERED: Diltiazem 25 MG/5 ML SDV IVPUSH ONE (12:35)
--- NOTE | 2020-07-20 12:36 | EDM.PDOC ---
ED HPI GENERAL MEDICAL PROBLEM - General Chief Complaint: Abdominal Pain Stated Complaint: LIGHT HEADED/VISION/BP Time Seen by Provider: 07/20/20 12:19 Source of Information: Reports: Patient, Family, RN Notes Reviewed History Limitations: Reports: No Limitations - History of Present Illness INITIAL COMMENTS - FREE TEXT/NARRATIVE: 80-year-old female presents emergency department a complaint of lightheadedness and dizziness. She states she was feeling okay yesterday but then this morning really started having difficulty felt dizzy felt like she was going to pass out.she was having change in vision and then it will come back she is now she has had troubles with palpitations it was when she will feel palpitations and will go away her blood pressure has been running on the low side. Denies any fevers no shortness of breath beyond baseline no nausea vomiting - Related Data Allergies Allergy/AdvReac Type Severity Reaction Status Date / Time Sulfa (Sulfonamide Allergy Severe Hives Verified 07/20/20 12:08 Antibiotics) hylan G-F 20 [From [employer]] Allergy Intermediate n&v, Verified 07/20/20 12:08 swelling,joint pain,muscle pain Penicillins Allergy Hives Verified 07/20/20 12:08 latex gloves Allergy Rash Uncoded 07/20/20 12:08 Home Meds: Home Meds Calcium Carb & Citrate/Vit D3 [Calcium + Vitamin D3 Caplet] 1 tab PO DAILY 03/04/13 [History] Fluticasone/Salmeterol [Advair 100-50] 1 puff INH BID 03/04/13 [History] Multivit with Calcium,Iron,Min [Therapeutic M] 2 tab PO DAILY 03/04/13 [History] Polyethylene Glycol 3350 [MiraLAX] 17 gm PO DAILY PRN 01/04/15 [History] Albuterol/Ipratropium [Combivent Respimat] 1 inhalation IH QID 08/21/18 [History] Omeprazole Magnesium [Prilosec Otc] 20 mg PO BID PRN 08/21/18 [History] Vit C/E/Zn/Coppr/Lutein/Zeaxan [Preservision Areds 2 Softgel] 1 each PO BID 11/20/18 [History] Acetaminophen [Tylenol] 650 mg PO Q4H PRN 02/28/19 [History] Diclofenac Sodium [Voltaren] 4 g TP QID 02/28/19 [History] Colchicine 0.3 mg PO BID 06/21/20 [History] Albuterol [Proventil Neb Soln] 0.63 mg NEB BID 07/20/20 [History] Metoprolol Tartrate 12.5 mg PO DAILY #30 tablet 07/20/20 [Rx] Past Medical History HEENT History: Reports: Cataract, Impaired Vision, Sinusitis, Other (See Below) Other HEENT History: wears glasses, seasonal allergies Cardiovascular History: Reports: Aneurysm Respiratory History: Reports: COPD Gastrointestinal History: Reports: Chronic Constipation, Colon Polyp, Hemorrhoids, Jaundice, Other (See Below) Other Gastrointestinal History: hepatitis over40 years ago when Genitourinary History: Reports: UTI, Recurrent 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 Oncologic (Cancer) History: Reports: Basal Cell Carcinoma, Lung, Squamous Cell Carcinoma Dermatologic History: Reports: Eczema, Other (See Below) Other Dermatologic History: eczema. Ej Sebastián syndrome - Infectious Disease History Infectious Disease History: Reports: Chicken Pox, Measles, Mumps Other Infectious Disease History: Hepatitis unknown type - Past Surgical History Head Surgeries/Procedures: Reports: None HEENT Surgical History: Reports: Cataract Surgery Cardiovascular Surgical History: Reports: AAA Repair, Aneurysm Other Cardiovascular Surgeries/Procedures: aueurysm surgery end of July 2017 endoleak aortic graft Respiratory Surgical History: Reports: None GI Surgical History: Reports: Colonoscopy, EGD, Other (See Below) Other GI Surgeries/Procedures: Abdominal aneurysm July 2017 Female Surgical History: Reports: None Endocrine Surgical History: Reports: None Neurological Surgical History: Reports: C-Spine Musculoskeletal Surgical History: Reports: None Oncologic Surgical History: Reports: None Dermatological Surgical History: Reports: Skin Biopsy Social & Family History - Family History Family Medical History: No Pertinent Family History - Tobacco Use Tobacco Use Status *Q: Former Tobacco User Used Tobacco, but Quit: Yes Month/Year Tobacco Last Used: 2017 Second Hand Smoke Exposure: No - Caffeine Use Caffeine Use: Reports: Coffee - Recreational Drug Use Recreational Drug Use: No ED ROS GENERAL - Review of Systems Review Of Systems: See Below Constitutional: Reports: Fatigue HEENT: Reports: No Symptoms Respiratory: Reports: No Symptoms Cardiovascular: Reports: Blood Pressure Problem, Lightheadedness, Palpitations GI/Abdominal: Reports: No Symptoms ED EXAM, GENERAL - Physical Exam Exam: See Below Exam Limited By: No Limitations General Appearance: Alert, Mild Distress Throat/Mouth: Normal Inspection, Normal Lips, Normal Teeth, Normal Gums, Normal Oropharynx, Normal Voice, No Airway Compromise Neck: Normal Inspection, Supple, Non-Tender, Full Range of Motion Respiratory/Chest: No Respiratory Distress, Lungs Clear, Normal Breath Sounds, No Accessory Muscle Use, Chest Non-Tender Cardiovascular: No Murmur, Irregularly Irregular GI/Abdominal: Soft, Non-Tender #1 Interpretation EKG Date: 07/20/20 Time: 12:06 Rhythm: A-Fib Elba: LAD-Left [place]ba Deviation P-Wave: Variable QRS: Normal ST-T: Normal QT: Normal Comparison: Change From Previous EKG Course - Vital Signs Last Recorded V/S: Last Vital Signs Temp 97.5 F 07/20/20 12:20 Pulse 71 07/20/20 12:20 Resp 20 07/20/20 12:20 BP 106/66 07/20/20 12:20 Pulse Ox 98 07/20/20 12:20 - Orders/Labs/Meds Orders: Active Orders 24 hr Category Date Time Status Cardiac Monitoring [RC] .As Directed Care 07/20/20 12:28 Active EKG Documentation Completion [RC] ASDIRECTED Care 07/20/20 12:29 Active Peripheral IV Care [RC] . DIRECTED Care 07/20/20 12:28 Active UA W/MICROSCOPIC [URIN] Stat Lab 07/20/20 12:28 Ordered Sodium Chloride 0.9% [Normal Saline] 1,000 ml Med 07/20/20 12:28 Active IV .BOLUS Sodium Chloride 0.9% [Saline Flush] Med 07/20/20 12:28 Active 10 ml FLUSH ASDIRECTED PRN Peripheral IV Insertion Adult [OM.PC] Stat Oth 07/20/20 12:28 Ordered EKG 12 Lead [EK] Stat Ther 07/20/20 12:29 Ordered Medication Orders Sodium Chloride (Normal Saline) 1,000 mls @ 500 mls/hr IV .BOLUS ONE Stop: 07/20/20 14:27 Last Admin: 07/20/20 12:44 Dose: 500 mls/hr Documented by: HELEN Sodium Chloride (Sodium Chloride 0.9% 10 Ml Syringe) 10 ml FLUSH ASDIRECTED PRN PRN Reason: Keep Vein Open Labs: Laboratory Tests 07/20/20 07/20/20 07/20/20 Range/Units 12:28 12:28 12:28 WBC 9.3 (4.5-11.0) K/uL RBC 4.07 (3.30-5.50) M/uL Hgb 13.0 (12.0-15.0) g/dL Hct 40.6 (36.0-48.0) % MCV 100 H (80-98) fL MCH 32 H (27-31) pg MCHC 32 (32-36) % Plt Count 406 H (150-400) K/uL Neut % (Auto) 57 (36-66) % Lymph % (Auto) 31 (24-44) % [place] % (Auto) 9 H (2-6) % Eos % (Auto) 2 (2-4) % Baso % (Auto) 2 H (0-1) % Sodium 145 (140-148) mmol/L Potassium 4.4 (3.6-5.2) mmol/L Chloride 106 (100-108) mmol/L Carbon Dioxide 25 (21-32) mmol/L Anion Gap 13.9 (5.0-14.0) mmol/L BUN 24 H (7-18) mg/dL Creatinine 1.1 H (0.6-1.0) mg/dL Est Cr Clr Drug Dosing 28.72 mL/min Estimated GFR (MDRD) 48 L (>60) Glucose 85 (74-106) mg/dL Lactic Acid 2.5 H (0.4-2.0) mmol/L Calcium 9.1 (8.5-10.1) mg/dL Total Bilirubin 0.3 (0.2-1.0) mg/dL AST 13 L (15-37) U/L ALT 17 (12-78) U/L Alkaline Phosphatase 111 (46-116) U/L Troponin I < 0.017 (0.000-0.056) ng/mL Total Protein 7.0 (6.4-8.2) g/dL Albumin 2.9 L (3.4-5.0) g/dL Globulin 4.1 H (2.3-3.5) g/dL Albumin/Globulin Ratio 0.7 L (1.2-2.2) Lipase 350 (73-393) U/L Meds: Medications Generic Name Dose Route Start Last Admin Trade Name Freq PRN Reason Stop Dose Admin Sodium Chloride 1,000 mls @ 500 mls/hr 07/20/20 12:28 07/20/20 12:44 Normal Saline IV 07/20/20 14:27 500 mls/hr .BOLUS ONE Administration Sodium Chloride 10 ml 07/20/20 12:28 Sodium Chloride 0.9% 10 Ml Syringe FLUSH ASDIRECTED PRN Keep Vein Open Discontinued Medications Generic Name Dose Route Start Last Admin Trade Name Freq PRN Reason Stop Dose Admin Acetaminophen 650 mg 07/20/20 12:29 07/20/20 12:43 Acetaminophen 325 Mg Tab PO 07/20/20 12:30 650 mg NOW ONE Administration Diltiazem HCl 5 mg 07/20/20 12:35 Diltiazem 25 Mg/5 Ml Sdv IVPUSH 07/20/20 12:36 ONETIME ONE Departure - Departure Time of Disposition: 14:15 Disposition: Home, Self-Care 01 Condition: Fair Clinical Impression: Paroxysmal atrial fibrillation Instructions: Atrial Fibrillation, [id number] Referrals: Lin Sinclair MD [Primary Care Provider] - Forms: ED Department Discharge Additional Instructions: Recommend starting metoprolol 12.5 mg once a day, your medications have been faxed to [email or web address], your primary care in the next 3 to 5 days for reevaluation Sepsis Event Note (ED) - Evaluation Sepsis Screening Result: No Definite Risk - Focused Exam Vital Signs: Vital Signs Temp Pulse Resp BP Pulse Ox 07/20/20 12:20 97.5 F 71 20 106/66 98 07/20/20 11:58 97.5 F 71 20 106/66 98 - My Orders Last 24 Hours: My Active Orders 07/20/20 12:28 Cardiac Monitoring [RC] .As Directed Peripheral IV Care [RC] . DIRECTED UA W/MICROSCOPIC [URIN] Stat Sodium Chloride 0.9% [Normal Saline] 1,000 ml IV .BOLUS Sodium Chloride 0.9% [Saline Flush] 10 ml FLUSH ASDIRECTED PRN Peripheral IV Insertion Adult [OM.PC] Stat 07/20/20 12:29 EKG Documentation Completion [RC] ASDIRECTED EKG 12 Lead [EK] Stat - Assessment/Plan Last 24 Hours: My Active Orders 07/20/20 12:28 Cardiac Monitoring [RC] .As Directed Peripheral IV Care [RC] . DIRECTED UA W/MICROSCOPIC [URIN] Stat Sodium Chloride 0.9% [Normal Saline] 1,000 ml IV .BOLUS Sodium Chloride 0.9% [Saline Flush] 10 ml FLUSH ASDIRECTED PRN Peripheral IV Insertion Adult [OM.PC] Stat 07/20/20 12:29 EKG Documentation Completion [RC] ASDIRECTED EKG 12 Lead [EK] Stat Plan: Assessment Acuity = acute Site and laterality = paroxysmal atrial fibrillation with spontaneous conversion Etiology = unknown Manifestations = hypotension and dizziness with the tachycardia Location of injury = Home Lab values = CBC unremarkable creatinine elevated 1.1 consistent with chronic renal failure stage G3 a lactic acid slightly elevated 2.5 consistent lactic acidosis troponin Plan Had a discussion with him about lab work and chest x-ray EKG results suspicious for interaction with his COPD producing the paroxysmal atrial fibrillation therefore elected to try metoprolol 12.5 mg once a day with close follow-up to her primary care her chads vas 2 score is 3 mainly because of her age and sex discuss anticoagulation with her primary care This note was dictated using [email or web address] (formerly [email or web address]) voice recognition software please call with any questions on syntax or grammar.
--- NOTE | 2020-07-20 13:35 | CR ---
CHEST: Portable 07/20/2020 1:10 PM CLINICAL HISTORY:Chest pain COMPARISON:06/21/2020 FINDINGS: There is persistent left lower lobe atelectasis similar to prior study. There is some streaky right infrahilar density which may be some atelectasis and/or scarring. Lungs are generally emphysematous. There are atherosclerotic changes in the aorta. IMPRESSION:. Persistent left lower lobe atelectasis without significant change Diffuse emphysematous changes Right infrahilar density is similar to prior study and may be some scarring and/or atelectasis
== END 2020-07-20 14:34 | disposition home or self-care (01) ==
LOC: JP.ED 11:46
DX: I48.0 Paroxysmal atrial fibrillation (principal); J44.9 Chronic obstructive pulmonary disease, unspecified; Z88.2 Allergy status to sulfonamides; Z88.0 Allergy status to penicillin; Z91.040 Latex allergy status; Z79.899 Other long term (current) drug therapy; Z87.891 Personal history of nicotine dependence
CPT/HCPCS: 36415; 71045; 80053; 83605; 83690; 84484; 85025; 93005; 99285; A9270; J7050

== ENCOUNTER 2020-07-22 14:04 | Observation (INO) | payer MEDICARE, OTHER ==
[2020-07-22] MEDS: Verapamil 5 MG/2 ML SDV IVPUSH ONE ×2 (14:37→17:06)
--- NOTE | 2020-07-22 14:39 | EDM.PDOC ---
ED HPI GENERAL MEDICAL PROBLEM - General Chief Complaint: Cardiovascular Problem Stated Complaint: SENT FROM CLINIC Time Seen by Provider: 07/22/20 14:15 Source of Information: Reports: Patient, Family, Provider History Limitations: Reports: No Limitations - History of Present Illness INITIAL COMMENTS - FREE TEXT/NARRATIVE: 80-year-old female was recently diagnosed with atrial fibrillation just a few days ago, converted spontaneously in the emergency room. She was started on 12.5 mg of metoprolol daily which she has had 2 doses. She was going into the clinic today to be rechecked, but redeveloped symptoms while brushing her teeth about 2 hours after coming into town. On the way to the clinic she felt lightheaded, slight chest pressure and some pressure radiating up to her right jaw and ear. When she arrived at the clinic she was moderately hypotensive, dizzy, and tachycardic so they brought her to the emergency room. She is not having significant pain, she just feels very weak and tired. Prior to this week she has not had any problems with cardiac arrhythmias. When she arrived to the emergency room she was hooked to a monitor and is in a fairly persistent atrial flutter at a rate of 140 with occasional breakthrough atrial fibrillation and isolated small runs of normal sinus rhythm. Onset: Sudden (Symptoms restarted fairly suddenly about 3 hours ago) Duration: Hour(s): (3 hours) Worsens with: Reports: Other (Activity) Associated Symptoms: Reports: Malaise, Weakness. Denies: Nausea/Vomiting, Shortness of Breath - Related Data Allergies Allergy/AdvReac Type Severity Reaction Status Date / Time Penicillins Allergy Severe Hives Verified 07/22/20 14:26 Sulfa (Sulfonamide Allergy Severe Hives Verified 07/22/20 14:26 Antibiotics) hylan G-F 20 [From [facility]] Allergy Intermediate n&v, Verified 07/22/20 14:26 swelling,joint pain,muscle pain latex Allergy Intermediate Rash Verified 07/22/20 16:06 Home Meds: Home Meds Calcium Carb & Citrate/Vit D3 [Calcium + Vitamin D3 Caplet] 1 tab PO DAILY 03/04/13 [History] Fluticasone/Salmeterol [Advair 100-50] 1 puff INH BID 03/04/13 [History] Multivit with Calcium,Iron,Min [Therapeutic M] 2 tab PO DAILY 03/04/13 [History] Polyethylene Glycol 3350 [MiraLAX] 17 gm PO DAILY PRN 01/04/15 [History] Albuterol/Ipratropium [Combivent Respimat] 1 inhalation IH QID 08/21/18 [History] Omeprazole Magnesium [Prilosec Otc] 20 mg PO BID PRN 08/21/18 [History] Vit C/E/Zn/Coppr/Lutein/Zeaxan [Preservision Areds 2 Softgel] 1 each PO BID 11/20/18 [History] Acetaminophen [Tylenol] 650 mg PO Q4H PRN 02/28/19 [History] Diclofenac Sodium [Voltaren] 4 g TP QID 02/28/19 [History] Colchicine 0.3 mg PO BID 06/21/20 [History] Albuterol [Proventil Neb Soln] 0.63 mg NEB BID 07/20/20 [History] Metoprolol Tartrate 12.5 mg PO DAILY #30 tablet 07/20/20 [Rx] Lidocaine 5% [Lidoderm 5%] 1 patch TOP DAILY 07/22/20 [History] Past Medical History HEENT History: Reports: Cataract, Impaired Vision, Sinusitis, Other (See Below) Other HEENT History: wears glasses, seasonal allergies Cardiovascular History: Reports: Aneurysm, Arrhythmia Respiratory History: Reports: COPD Gastrointestinal History: Reports: Chronic Constipation, Colon Polyp, Hemorrhoids, Jaundice, Other (See Below) Other Gastrointestinal History: hepatitis over40 years ago when Genitourinary History: Reports: UTI, Recurrent [employer] History: Reports: Musculoskeletal History: Reports: Arthritis, Back Pain, Chronic, Neck Pain, Chronic, Osteoarthritis, Other (See Below) Other Musculoskeletal History: lumbar stenosis Neurological History: Reports: None Endocrine/Metabolic History: Reports: Osteoporosis Immunologic History: Reports: Other (See Below) Other Immunologic History: Ej-Sebastián syndrome. Oncologic (Cancer) History: Reports: Basal Cell Carcinoma, Lung, Squamous Cell Carcinoma Dermatologic History: Reports: Eczema, Other (See Below) Other Dermatologic History: eczema. Ej Sebastián syndrome - Infectious Disease History Infectious Disease History: Reports: Chicken Pox, Measles, Mumps Other Infectious Disease History: Hepatitis unknown type - Past Surgical History Head Surgeries/Procedures: Reports: None HEENT Surgical History: Reports: Cataract Surgery Cardiovascular Surgical History: Reports: AAA Repair, Aneurysm Other Cardiovascular Surgeries/Procedures: aueurysm surgery end of July 2017 endoleak aortic graft Respiratory Surgical History: Reports: None GI Surgical History: Reports: Colonoscopy, EGD, Other (See Below) Other GI Surgeries/Procedures: Abdominal aneurysm July 2017 Female Surgical History: Reports: None Endocrine Surgical History: Reports: None Neurological Surgical History: Reports: C-Spine Musculoskeletal Surgical History: Reports: None Oncologic Surgical History: Reports: None Dermatological Surgical History: Reports: Skin Biopsy Social & Family History - Family History Family Medical History: No Pertinent Family History - Caffeine Use Caffeine Use: Reports: Coffee ED ROS GENERAL - Review of Systems Review Of Systems: See Below Constitutional: Reports: Malaise. Denies: Fever, Chills HEENT: Reports: Vision Change (Mild intermittent blurred vision) Respiratory: Denies: Shortness of Breath Cardiovascular: Reports: Palpitations, Other (Minimal pressure sensation in her chest) GI/Abdominal: Denies: Abdominal Pain, Nausea, Vomiting : Reports: No Symptoms Skin: Reports: No Symptoms Neurological: Reports: Dizziness, Weakness ED EXAM, GENERAL - Physical Exam Exam: See Below Exam Limited By: No Limitations General Appearance: Alert, No Apparent Distress Head: Atraumatic Respiratory/Chest: No Respiratory Distress, Lungs Clear Cardiovascular: Tachycardia, Irregularly Irregular, Other (Heart sounds are distant) GI/Abdominal: Soft, Non-Tender Extremities: Other (Extremities are somewhat cachectic and thin, scattered bruises on her lower extremities) Neurological: Alert, Oriented, Other (Despite diffuse weakness she has no asymmetrical weakness) Psychiatric: Normal Affect, Normal Mood Skin Exam: Warm, Dry, Other (A few scattered bruises on extremities) #1 Interpretation EKG Date: 07/22/20 Rhythm: A-Flutter ST-T: Normal Course - Vital Signs Last Recorded V/S: Last Vital Signs Temp 97.7 F 07/22/20 14:12 Pulse 72 07/22/20 16:21 Resp 25 H 07/22/20 16:21 BP 116/78 07/22/20 16:21 Pulse Ox 94 L 07/22/20 15:51 - Orders/Labs/Meds Orders: Active Orders 24 hr Category Date Time Status EKG Documentation Completion [RC] ASDIRECTED Care 07/22/20 14:25 Active EKG 12 Lead [EK] Routine Ther 07/22/20 14:25 Stop Req Medication Orders Acetaminophen (Acetaminophen 325 Mg Tab) 650 mg PO Q4H PRN PRN Reason: Pain (Mild 1-3)/fever Albuterol (Albuterol 0.083% 2.5 Mg/3 Ml Neb Soln) 2.5 mg NEB Q4H PRN PRN Reason: Shortness Of Breath/wheezing Magnesium Hydroxide (Magnesium Hydroxide 400 Mg/5 Ml Susp 30 Ml Cup) 30 ml PO Q12H PRN PRN Reason: Constipation Non-Formulary Medication (Albuterol/Ipratropium [Combivent Respimat]) 1 inhalation IH QID MARY Non-Formulary Medication (Colchicine [Colchicine]) 0.3 mg PO BID MARY Non-Formulary Medication (Diclofenac Sodium [Voltaren]) 4 g TP QID MARY Non-Formulary Medication (Fluticasone/Salmeterol [Advair 100-50]) 1 puff INH BID MARY Non-Formulary Medication (Lidocaine 5% [Lidoderm 5%]) 1 patch TOP DAILY MARY Non-Formulary Medication (Metoprolol Tartrate [Metoprolol Tartrate]) 12.5 mg PO BID MARY Non-Formulary Medication (Omeprazole Magnesium [Prilosec Otc]) 20 mg PO BID PRN PRN Reason: Dyspepsia Ondansetron HCl (Ondansetron 4 Mg Tab.Dis) 4 mg PO Q6H PRN PRN Reason: Nausea able to take PO Ondansetron HCl (Ondansetron 4 Mg/2 Ml Sdv) 4 mg IV Q6H PRN PRN Reason: Nausea/Vomiting Polyethylene Glycol (Polyethylene Glycol 3350 Powder 17 Gm Packet) 17 gm PO DAILY PRN PRN Reason: Constipation Senna/Docusate Sodium (Docusate Sodium/Sennosides 50-8.6 Mg Tab) 1 tab PO BID PRN PRN Reason: Constipation Labs: Laboratory Tests 07/22/20 07/22/20 07/22/20 Range/Units 14:31 14:31 16:14 WBC 8.2 (4.5-11.0) K/uL RBC 3.79 (3.30-5.50) M/uL Hgb 12.2 (12.0-15.0) g/dL Hct 38.2 (36.0-48.0) % MCV 101 H (80-98) fL MCH 32 H (27-31) pg MCHC 32 (32-36) % Plt Count 408 H (150-400) K/uL Neut % (Auto) 56 (36-66) % Lymph % (Auto) 33 (24-44) % [place] % (Auto) 9 H (2-6) % Eos % (Auto) 2 (2-4) % Baso % (Auto) 1 (0-1) % Sodium 145 (140-148) mmol/L Potassium 3.9 (3.6-5.2) mmol/L Chloride 107 (100-108) mmol/L Carbon Dioxide 25 (21-32) mmol/L Anion Gap 13.5 (5.0-14.0) mmol/L BUN 21 H (7-18) mg/dL Creatinine 1.0 (0.6-1.0) mg/dL Est Cr Clr Drug Dosing 30.96 mL/min Estimated GFR (MDRD) 53 L (>60) Glucose 86 (74-106) mg/dL Calcium 9.0 (8.5-10.1) mg/dL Magnesium 2.0 (1.8-2.4) mg/dL Total Bilirubin 0.2 (0.2-1.0) mg/dL AST 14 L (15-37) U/L ALT 16 (12-78) U/L Alkaline Phosphatase 105 (46-116) U/L Troponin I < 0.017 (0.000-0.056) ng/mL Total Protein 6.8 (6.4-8.2) g/dL Albumin 2.9 L (3.4-5.0) g/dL Globulin 3.9 H (2.3-3.5) g/dL Albumin/Globulin Ratio 0.7 L (1.2-2.2) TSH, Ultra Sensitive 0.841 (0.358-3.740) uIU/mL Meds: Medications Generic Name Dose Route Start Last Admin Trade Name Freq PRN Reason Stop Dose Admin Acetaminophen 650 mg 07/22/20 16:37 Acetaminophen 325 Mg Tab PO Q4H PRN Pain (Mild 1-3)/fever Albuterol 2.5 mg 07/22/20 16:37 Albuterol 0.083% 2.5 Mg/3 Ml Neb Soln NEB Q4H PRN Shortness Of Breath/wheezing Magnesium Hydroxide 30 ml 07/22/20 16:37 Magnesium Hydroxide 400 Mg/5 Ml Susp 30 Ml Cup PO Q12H PRN Constipation Non-Formulary Medication 1 inhalation 07/22/20 22:00 Albuterol/Ipratropium [Combivent Respimat] IH QID [facility] Non-Formulary Medication 0.3 mg 07/22/20 21:00 Colchicine [Colchicine] PO BID MARY Non-Formulary Medication 4 g 07/22/20 22:00 Diclofenac Sodium [Voltaren] TP QID AMRY Non-Formulary Medication 1 puff 07/22/20 21:00 Fluticasone/Salmeterol [Advair 100-50] INH BID [facility] Non-Formulary Medication 1 patch 07/23/20 09:00 Lidocaine 5% [Lidoderm 5%] TOP DAILY MARY Non-Formulary Medication 12.5 mg 07/22/20 22:00 Metoprolol Tartrate [Metoprolol Tartrate] PO BID [facility] Non-Formulary Medication 20 mg 07/22/20 16:37 Omeprazole Magnesium [Prilosec Otc] PO BID PRN Dyspepsia Ondansetron HCl 4 mg 07/22/20 16:37 Ondansetron 4 Mg Tab.Dis PO Q6H PRN Nausea able to take PO Ondansetron HCl 4 mg 07/22/20 16:37 Ondansetron 4 Mg/2 Ml Sdv IV Q6H PRN Nausea/Vomiting Polyethylene Glycol 17 gm 07/22/20 16:43 Polyethylene Glycol 3350 Powder 17 Gm Packet PO DAILY PRN Constipation Senna/Docusate Sodium 1 tab 07/22/20 16:37 Docusate Sodium/Sennosides 50-8.6 Mg Tab PO BID PRN Constipation Discontinued Medications Generic Name Dose Route Start Last Admin Trade Name Freq PRN Reason Stop Dose Admin Metoprolol Tartrate 12.5 mg 07/22/20 16:13 Metoprolol Tartrate 25 Mg Tab PO 07/22/20 16:14 ONETIME ONE Verapamil HCl 2.5 mg 07/22/20 14:20 07/22/20 17:06 Verapamil 5 Mg/2 Ml Sdv IVPUSH 07/22/20 14:21 Not Given ONETIME ONE - Re-Assessments/Exams Free Text/Narrative Re-Assessment/Exam: 07/22/20 17:06 Initial monitor shows atrial flutter with occasional intermixed atrial fibrillation. Labs were drawn and she was monitored for a course of 10 minutes prior to medications ordered. She had a few increased episodes of normal sinus rhythm but still persistent intermittent atrial fib flutter. Just prior to giving her some IV verapamil, she stabilized and remained in normal sinus rhythm for the majority of the time. No medications were given. Labs returned reassuring with troponin 0, electrolytes normal. Dr. Coats to the hospitalist service agreed to admit the patient for observation to stabilize her tendency towards developing intermittent atrial fib flutter. Departure - Departure Time of Disposition: 16:57 Disposition: Admitted As Inpatient 65 Clinical Impression: Paroxysmal atrial fibrillation, Atrial flutter, paroxysmal Sepsis Event Note (ED) - Evaluation Sepsis Screening Result: No Definite Risk - Focused Exam Vital Signs: Vital Signs Temp Pulse Resp BP Pulse Ox 07/22/20 15:51 73 26 H 109/76 94 L 07/22/20 15:21 74 22 H 104/69 94 L 07/22/20 14:52 88 28 H 109/61 97 07/22/20 14:42 78 23 H 106/71 96 07/22/20 14:30 87 116/78 07/22/20 14:12 97.7 F 137 H 35 H 109/79 98 - My Orders Last 24 Hours: My Active Orders 07/22/20 14:25 EKG Documentation Completion [RC] ASDIRECTED EKG 12 Lead [EK] Routine - Assessment/Plan Last 24 Hours: My Active Orders 07/22/20 14:25 EKG Documentation Completion [RC] ASDIRECTED EKG 12 Lead [EK] Routine
[2020-07-22] MEDS ORDERED: Metoprolol Tartrate 25 MG Tab PO ONE (16:13)
--- NOTE | 2020-07-22 16:27 | PCM.HP.2 ---
H&P History of Present Illness - General Date of Service: 07/22/20 Admit Problem/Dx: Admission Diagnosis/Problem Admission Diagnosis/Problem Paroxysmal atrial fibrillation with rapid ventricular response Source of Information: Patient, Family, Provider History Limitations: Reports: No Limitations - History of Present Illness Initial Comments - Free Text/Narative: CC: I got so weak HPI: Lori presents to the emergency room today with recurrent chest pressure, jaw pain, blurry vision and weakness. The symptoms are very similar to those e xperienced 2 days ago when she was seen in the emergency room and diagnosed with paroxysmal atrial fibrillation. She was started on low-dose metoprolol and did well until this morning. She reports sudden onset of symptoms about 1130. Initially she went to the clinic but was sent here when her pulse was noted to be in the 130s. She describes the chest pressure and neck pain as achy pressure that is mild to moderate in nature. This is associated with onset of palpitations and goes away when the palpitations stop. No obvious triggers to make it come on or get worse. She has not tried anything to make it better. She does feel short of breath when her heart is racing. She does not report exertional chest pain. She does fatigue easily but blames this on her COPD. No recent fevers or chills. She did have recent cough and dyspnea that improved after she had a mucous plug removed by bronchoscopy about a week ago. No urinary symptoms. Weight is stable. Work-up in the emergency room revealed intermittent episodes of atrial fibrillation and flutter that resolved spontaneously. She is quite symptomatic with the episodes. Labs are normal. EKG does not show ischemia. Bedside ul trasound showed normal cardiac function and structure. She will be admitted for observation and cardiac monitoring. - Related Data Allergies/Adverse Reactions: Allergies Allergy/AdvReac Type Severity Reaction Status Date / Time Penicillins Allergy Severe Hives Verified 07/22/20 14:26 Sulfa (Sulfonamide Allergy Severe Hives Verified 07/22/20 14:26 Antibiotics) hylan G-F 20 [From SynChowNow] Allergy Intermediate n&v, Verified 07/22/20 14:26 swelling,joint pain,muscle pain latex Allergy Intermediate Rash Verified 07/22/20 16:06 Home Medications: Home Meds Calcium Carb & Citrate/Vit D3 [Calcium + Vitamin D3 Caplet] 1 tab PO DAILY 03/04/13 [History] Fluticasone/Salmeterol [Advair 100-50] 1 puff INH BID 03/04/13 [History] Multivit with Calcium,Iron,Min [Therapeutic M] 2 tab PO DAILY 03/04/13 [History] Polyethylene Glycol 3350 [MiraLAX] 17 gm PO DAILY PRN 01/04/15 [History] Albuterol/Ipratropium [Combivent Respimat] 1 inhalation IH QID 08/21/18 [History] Omeprazole Magnesium [Prilosec Otc] 20 mg PO BID PRN 08/21/18 [History] Vit C/E/Zn/Coppr/Lutein/Zeaxan [Preservision Areds 2 Softgel] 1 each PO BID 11/20/18 [History] Acetaminophen [Tylenol] 650 mg PO Q4H PRN 02/28/19 [History] Diclofenac Sodium [Voltaren] 4 g TP QID 02/28/19 [History] Colchicine 0.3 mg PO BID 06/21/20 [History] Albuterol [Proventil Neb Soln] 0.63 mg NEB BID 07/20/20 [History] Metoprolol Tartrate 12.5 mg PO DAILY #30 tablet 07/20/20 [Rx] Lidocaine 5% [Lidoderm 5%] 1 patch TOP DAILY 07/22/20 [History] Past Medical History HEENT History: Reports: Cataract, Impaired Vision, Sinusitis, Other (See Below) Other HEENT History: wears glasses, seasonal allergies Cardiovascular History: Reports: Aneurysm, Arrhythmia Respiratory History: Reports: COPD Gastrointestinal History: Reports: Chronic Constipation, Colon Polyp, Hemorrhoids, Jaundice, Other (See Below) Other Gastrointestinal History: hepatitis over40 years ago when Genitourinary History: Reports: UTI, Recurrent PSYCHIATRIC AIDE History: Reports: Musculoskeletal History: Reports: Arthritis, Back Pain, Chronic, Neck Pain, Chronic, Osteoarthritis, Other (See Below) Other Musculoskeletal History: lumbar stenosis Neurological History: Reports: None Endocrine/Metabolic History: Reports: Osteoporosis Immunologic History: Reports: Other (See Below) Other Immunologic History: Ej-Sebastián syndrome. Oncologic (Cancer) History: Reports: Basal Cell Carcinoma, Lung, Squamous Cell Carcinoma Dermatologic History: Reports: Eczema, Other (See Below) Other Dermatologic History: eczema. Ej Sebastián syndrome - Infectious Disease History Infectious Disease History: Reports: Chicken Pox, Measles, Mumps Other Infectious Disease History: Hepatitis unknown type - Past Surgical History Head Surgeries/Procedures: Reports: None HEENT Surgical History: Reports: Cataract Surgery Cardiovascular Surgical History: Reports: AAA Repair, Aneurysm Other Cardiovascular Surgeries/Procedures: aueurysm surgery end of July 2017 endoleak aortic graft Respiratory Surgical History: Reports: None GI Surgical History: Reports: Colonoscopy, EGD, Other (See Below) Other GI Surgeries/Procedures: Abdominal aneurysm July 2017 Female Surgical History: Reports: None Endocrine Surgical History: Reports: None Neurological Surgical History: Reports: C-Spine Musculoskeletal Surgical History: Reports: None Oncologic Surgical History: Reports: None Dermatological Surgical History: Reports: Skin Biopsy Social & Family History - Family History Family Medical History: No Pertinent Family History - Tobacco Use Tobacco Use Status *Q: Former Tobacco User Years of Tobacco use: 65 Packs/Tins Daily: 0.5 Used Tobacco, but Quit: No Month/Year Tobacco Last Used: rarely smokes anymore. - Caffeine Use Caffeine Use: Reports: Coffee Caffeine Use Comment: 1 cup daily - Alcohol Use Alcohol Use History: No - Recreational Drug Use Recreational Drug Use: No H&P Review of Systems - Review of Systems: Review Of Systems: See Below Free Text/Narrative: A complete 12 point review of systems was obtained. Pertinent positives and negatives are noted in the history of present illness. All other systems were reviewed and were negative except as noted. Exam - Exam Exam: See Below - Vital Signs Vital Signs: Last Vital Signs Temp 36.5 C 07/22/20 14:12 Pulse 73 07/22/20 15:51 Resp 26 H 07/22/20 15:51 BP 109/76 07/22/20 15:51 Pulse Ox 94 L 07/22/20 15:51 Weight: 44.452 kg - Exam Quality Assessment: No: Supplemental Oxygen General: Alert, Oriented, Cooperative. No: Mild Distress HEENT: Conjunctiva Clear, Mucosa Moist & [place]. No: Scleral Icterus Neck: Supple, Trachea Midline. No: Lymphadenopathy, JVD Lungs: Clear to Auscultation, Normal Respiratory Effort Cardiovascular: Regular Rate, Regular Rhythm. No: Systolic Murmur, Gallop/S3 GI/Abdominal Exam: Normal Bowel Sounds, Soft, Non-Tender, No Distention Extremities: No Pedal Edema. No: Increased Warmth Peripheral Pulses: 2+: Dorsalis Pedis (L), Dorsalis Pedis (R) Skin: Warm, Dry, Ecchymosis (bruise on left lower moore) Neuro Extensive - Mental Status: Alert, Oriented x3, Nl Response to Commands Neuro Extensive - Motor, Sensory, Reflexes: No: Dysarthria, Abnormal Motor, Tremor Psychiatric: Alert, Normal Affect - Patient Data Lab Results Last 24 hrs: Laboratory Results - last 24 hr 07/22/20 07/22/20 Range/Units 14:31 14:31 WBC 8.2 (4.5-11.0) K/uL RBC 3.79 (3.30-5.50) M/uL Hgb 12.2 (12.0-15.0) g/dL Hct 38.2 (36.0-48.0) % MCV 101 H (80-98) fL MCH 32 H (27-31) pg MCHC 32 (32-36) % Plt Count 408 H (150-400) K/uL Neut % (Auto) 56 (36-66) % Lymph % (Auto) 33 (24-44) % Day % (Auto) 9 H (2-6) % Eos % (Auto) 2 (2-4) % Baso % (Auto) 1 (0-1) % Sodium 145 (140-148) mmol/L Potassium 3.9 (3.6-5.2) mmol/L Chloride 107 (100-108) mmol/L Carbon Dioxide 25 (21-32) mmol/L Anion Gap 13.5 (5.0-14.0) mmol/L BUN 21 H (7-18) mg/dL Creatinine 1.0 (0.6-1.0) mg/dL Est Cr Clr Drug Dosing 30.96 mL/min Estimated GFR (MDRD) 53 L (>60) Glucose 86 (74-106) mg/dL Calcium 9.0 (8.5-10.1) mg/dL Total Bilirubin 0.2 (0.2-1.0) mg/dL AST 14 L (15-37) U/L ALT 16 (12-78) U/L Alkaline Phosphatase 105 (46-116) U/L Troponin I < 0.017 (0.000-0.056) ng/mL Total Protein 6.8 (6.4-8.2) g/dL Albumin 2.9 L (3.4-5.0) g/dL Globulin 3.9 H (2.3-3.5) g/dL Albumin/Globulin Ratio 0.7 L (1.2-2.2) Result Diagrams: 07/22/20 14:31 07/22/20 14:31 #1 Interpretation EKG Date: 07/22/20 Rhythm: Other (sinus and atrial flutter) Rate (Beats/Min): 110 [place]: LAD-Left [place] Deviation (LAFB) P-Wave: Variable QRS: Normal ST-T: Normal QT: Normal Comparison: Change From Previous EKG EKG Interpretation Comments: Initial portion of the EKG was sinus rhythm then she went into atrial flutter with 2:1 conduction Sepsis Event Note - Evaluation Sepsis Screening Result: No Definite Risk - Focused Exam Vital Signs: Vital Signs Temp Pulse Resp BP Pulse Ox 07/22/20 15:51 73 26 H 109/76 94 L 07/22/20 15:21 74 22 H 104/69 94 L 07/22/20 14:52 88 28 H 109/61 97 07/22/20 14:42 78 23 H 106/71 96 07/22/20 14:30 87 116/78 07/22/20 14:12 36.5 C 137 H 35 H 109/79 98 *Q Meaningful Use (ADM) - VTE Risk Assess *Q Each Risk Factor Represents 1 Point: Abnormal Pulmonary Function (COPD) Total Score 1 Point Risk Factors: 1 Each Risk Factor Represents 2 Points: Malignancy (present or previous) Total Score 2 Point Risk Factors: 2 Each Risk Factor Represents 3 Points: Age 75 Years or Greater Total Score 3 Point Risk Factors: 3 Each Risk Factor Represents 5 Points: None Total Score 5 Point Risk Factors: 0 Venous Thromboembolism Risk Factor Score *Q: 6 - Problem List (1) Paroxysmal atrial fibrillation SNOMED Code(s): 092319558 ICD Code: I48.0 - PAROXYSMAL ATRIAL FIBRILLATION Status: Acute Current Visit: No (2) COPD (chronic obstructive pulmonary disease) SNOMED Code(s): 56275224 ICD Code: J44.9 - CHRONIC OBSTRUCTIVE PULMONARY DISEASE, UNSPECIFIED Status: Chronic Current Visit: No Qualifiers: COPD type: emphysema Emphysema type: unspecified Qualified Code(s): J43.9 - Emphysema, unspecified (3) Lung cancer SNOMED Code(s): 806714792 ICD Code: C34.90 - MALIGNANT NEOPLASM OF UNSP PART OF UNSP BRONCHUS OR LUNG Status: Chronic Current Visit: No Qualifiers: Laterality: left Lung location: upper lobe of lung Qualified Code(s): C34.12 - Malignant neoplasm of upper lobe, left bronchus or lung Problem List Initiated/Reviewed/Updated: Yes Orders Last 24hrs: Active Orders 24 hr Category Date Time Status Patient Status Manage Transfer [TRANSFER] Routine ADT 07/22/20 16:16 Ordered EKG Documentation Completion [RC] ASDIRECTED Care 07/22/20 14:25 Active MAGNESIUM [CHEM] Urgent Lab 07/22/20 16:14 Received TSH ULTRASENSITIVE [CHEM] Urgent Lab 07/22/20 16:14 Received Resuscitation Status Routine Resus Stat 07/22/20 16:17 Ordered EKG 12 Lead [EK] Routine Ther 07/22/20 14:25 Ordered Assessment/Plan Comment:: ASSESSMENT AND PLAN - Paroxysmal atrial fibrillation/flutter-recurrent episodes about 48 hours after initial episode. Quite symptomatic when she is in rapid A. fib. Bedside ultrasound showed normal structure other than mild left atrial enlargement and function with good images obtained. Cardiac ischemia could be considered. She did recently have a CT pulmonary angiogram that did not show any blood clots. Thyroid studies are pending. I suspect this is most likely related to left atrial enlargement from COPD. CHADSS-VASC score is greater than 2, will review anticoagulation tomorrow. 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 Oxygenation normal. -Continue home medications History of left upper lobe lung cancer-no active issues. Maintenance issues - -DVT prophylaxis-mechanical -GI prophylaxis-PPI -Nutrition-regular -Ochoa catheter-not indicated CODE STATUS -full code Admission justification -this patient will be admitted for inpatient services and is medically appropriate meeting medical necessity for inpatient admission as outlined in my documentation. I reasonably expect the patient will require inpatient services that span a period time over 2 midnights. I reasonably expect this patient to be discharged or transferred within 96 hours [facility]. Disposition -I anticipate discharge home after the hospital stay Primary care physician -Dr. Lin Coats M.D. - Mortality Measure Prognosis:: Good
[2020-07-22] MEDS ORDERED: Ondansetron 4 MG/2 ML SDV IV PRN (16:37)
[2020-07-22] MEDS ORDERED: Ondansetron 4 MG Tab.DIS PO PRN (16:37)
[2020-07-22] MEDS ORDERED: Magnesium Hydroxide 400 MG/5 ML Susp 30 ML Cup PO PRN (16:37)
[2020-07-22] MEDS ORDERED: Albuterol 0.083% 2.5 MG/3 ML Neb Soln NEB PRN (16:37)
[2020-07-22] MEDS ORDERED: OMEPRAZOLE 20MG **PTOM PO PRN (16:37)
[2020-07-22] MEDS ORDERED: Polyethylene Glycol 3350 Powder 17 GM Packet PO PRN (16:43)
[2020-07-22] MEDS: Acetaminophen 325 MG Tab PO PRN (20:29)
[2020-07-22] MEDS: COLCHICINE 0.6 MG PO SCH (20:29)
[2020-07-22] MEDS: Metoprolol Tartrate 25 MG Tab ** OWN MED PO SCH ×2 (20:30→22:47)
[2020-07-22] MEDS: SALMETEROL INH SCH (20:33)
[2020-07-22] MEDS: FLUTICASONE INH SCH (20:33)
[2020-07-23] MEDS: Acetaminophen 325 MG Tab PO PRN (01:05)
[2020-07-23] MEDS ORDERED: Albuterol/Ipratropium 4 GM Inhalation Spray INH SCH (08:00)
[2020-07-23] MEDS ORDERED: Lidocaine 5% 700 MG Patch TRDERM SCH (09:00)
[2020-07-23] MEDS ORDERED: Aminophylline 500 MG/20 ML SDV IVPUSH PRN (09:40)
[2020-07-23] MEDS ORDERED: Diclofenac Sodium 1% Gel 100 GM Tube TOP SCH (10:00)
[2020-07-23 11:10] VITALS: BP 132/74
[2020-07-23] MEDS: COLCHICINE 0.6 MG PO SCH (11:11)
[2020-07-23] MEDS: Metoprolol Tartrate 25 MG Tab ** OWN MED PO SCH (11:11)
[2020-07-23 11:14] VITALS: PULSE 78
--- NOTE | 2020-07-23 11:56 | PCM.DCSUM1 ---
Discharge Summary - Hospital Course Brief History: 80-year-old female with history of left lung cancer now thought to be in remission and COPD who presented with chest pain and palpitations. She was admitted for management of recurrent atrial fibrillation with rapid ventricular response. Diagnosis: Stroke: No - Discharge Data Discharge Date: 07/23/20 Discharge Disposition: Home, Self-Care 01 Condition: Good - Referral to Home Health Primary Care Physician: Lin Sinclair MD - Discharge Diagnosis/Problem(s) (1) Paroxysmal atrial fibrillation SNOMED Code(s): 372605797 ICD Code: I48.0 - PAROXYSMAL ATRIAL FIBRILLATION Status: Acute (2) COPD (chronic obstructive pulmonary disease) SNOMED Code(s): 97400753 ICD Code: J44.9 - CHRONIC OBSTRUCTIVE PULMONARY DISEASE, UNSPECIFIED Status: Chronic Qualifiers: COPD type: emphysema Emphysema type: unspecified Qualified Code(s): J43.9 - Emphysema, unspecified (3) Lung cancer SNOMED Code(s): 426428556 ICD Code: C34.90 - MALIGNANT NEOPLASM OF UNSP PART OF UNSP BRONCHUS OR LUNG Status: Chronic Qualifiers: Laterality: left Lung location: upper lobe of lung Qualified Code(s): C34.12 - Malignant neoplasm of upper lobe, left bronchus or lung - Patient Summary/Data Hospital Course: Lori presented to the emergency room with chest pain, dizziness, weakness and blurry vision. Work-up in the emergency room revealed evidence for atrial fibrillation with a rapid ventricular response. This was paroxysmal and resolved without any specific intervention. This was her second episode this week. She was admitted for observation with up titration of her beta-edis as well as ischemic work-up. She was started on twice daily metoprolol rather than once daily. Overnight there were no issues with atrial fibrillation. She did have mild bradycardia in the 50s while she was sleeping. Electrolytes were optimized. TSH was normal. Morning after admission she did have a Lexiscan stress test. She did experience chest pain and stomach pain with the test but no abnormalities were seen on EKG. The nuclear medicine portion of the test was also unremarkable. She has not had any additional episodes of atrial fibrillation. She feels fairly well today and would like to go home. I did switch her to a once daily dosing of metoprolol succinate. She will keep the metoprolol tartrate in case she has a breakthrough episode. We did not initiate anticoagulation because of the very short nature of her episode. If she has additional episodes she would benefit from initiation of systemic anticoagulation because of the elevated CHADSS-VASC score. She has early follow-up planned. We did not perform a formal echocardiogram because it was not available during the hospital stay. I did perform a bedside ultrasound which showed normal cardiac function with no wall motion abnormalities. She did not have any significant valvular regurgitation and there was no significant sclerosis on her heart valves. Her ventricular chamber sizes were normal. She did have dilated atria in the setting of COPD/emphysema and I suspect this was the cause for her atrial fibrillation. - Patient Instructions Diet: Regular Diet as Tolerated Activity: As Tolerated Showering/Bathing: May Shower Other/Special Instructions: 1. You were in the hospital for management of paroxysmal atrial fibrillation with a rapid ventricular response. We performed a bedside echocardiogram that did not show any structural or functional abnormalities other than a mildly dilated left atrium. We also performed a str ess test which did not show any evidence for myocardial ischemia. I suspect that the atrial fibrillation is caused by the dilated left atrium leading to an irritable heart. I recommend that we start you on long-acting metoprolol succinate to help reduce the risk of recurrence of the fast heart rhythm. If you have breakthrough episodes despite the long-acting medication you could take one half of a tablet of the short acting that was prescribed from the emergency room. If this makes the rhythm go away then you do not need urgent evaluation. If you stay in atrial fibrillation or have chest pain or significant shortness of breath and you should seek medical evaluation. 2. Continue your other home medications as previously prescribed. 3. Follow up with Dr Sinclair as scheduled next week - Discharge Plan Prescriptions/Med Rec: Metoprolol Tartrate 12.5 mg PO DAILY PRN #30 tablet PRN Reason: Afib Metoprolol Succinate [Toprol XL] 25 mg PO DAILY #30 tab.er Home Medications: Home Meds Calcium Carb & Citrate/Vit D3 [Calcium + Vitamin D3 Caplet] 1 tab PO DAILY 03/04/13 [History] Fluticasone/Salmeterol [Advair 100-50] 1 puff INH BID 03/04/13 [History] Multivit with Calcium,Iron,Min [Therapeutic M] 2 tab PO DAILY 03/04/13 [History] Polyethylene Glycol 3350 [MiraLAX] 17 gm PO DAILY PRN 01/04/15 [History] Albuterol/Ipratropium [Combivent Respimat] 1 inhalation IH QID 08/21/18 [History] Omeprazole Magnesium [Prilosec Otc] 20 mg PO BID PRN 08/21/18 [History] Vit C/E/Zn/Coppr/Lutein/Zeaxan [Preservision Areds 2 Softgel] 1 each PO BID 11/20/18 [History] Acetaminophen [Tylenol] 650 mg PO Q4H PRN 02/28/19 [History] Diclofenac Sodium [Voltaren] 4 g TP QID 02/28/19 [History] Colchicine 0.3 mg PO BID 06/21/20 [History] Albuterol [Proventil Neb Soln] 0.63 mg NEB BID 07/20/20 [History] Lidocaine 5% [Lidoderm 5%] 1 patch TOP DAILY 07/22/20 [History] Metoprolol Succinate [Toprol XL] 25 mg PO DAILY #30 tab.er 07/23/20 [Rx] Metoprolol Tartrate 12.5 mg PO DAILY PRN #30 tablet 07/23/20 [Rx] Oxygen Therapy Mode: Room Air Patient Handouts: Metoprolol extended-release tablets, Atrial Fibrillation Referrals: Lin Sinclair MD [Primary Care Provider] - 07/27/20 1:40 pm (1 week - f/u hospital stay for Afib Your appointment with Dr. Sinclair will be at the [facility]. Arrivve 15 minutes early to register.) - Discharge Summary/Plan Comment DC Time >30 min.: No - Patient Data Vitals - Most Recent: Last Vital Signs Temp 35.6 C L 07/23/20 11:09 Pulse 78 07/23/20 11:11 Resp 18 07/23/20 11:09 BP 132/74 07/23/20 11:11 Pulse Ox 99 07/23/20 11:09 Weight - Most Recent: 46.357 kg Lab Results - Last 24 hrs: Laboratory Results - last 24 hr 07/22/20 07/22/20 07/22/20 Range/Units 14:31 14:31 16:14 WBC 8.2 (4.5-11.0) K/uL RBC 3.79 (3.30-5.50) M/uL Hgb 12.2 (12.0-15.0) g/dL Hct 38.2 (36.0-48.0) % MCV 101 H (80-98) fL MCH 32 H (27-31) pg MCHC 32 (32-36) % Plt Count 408 H (150-400) K/uL Neut % (Auto) 56 (36-66) % Lymph % (Auto) 33 (24-44) % [place] % (Auto) 9 H (2-6) % Eos % (Auto) 2 (2-4) % Baso % (Auto) 1 (0-1) % Sodium 145 (140-148) mmol/L Potassium 3.9 (3.6-5.2) mmol/L Chloride 107 (100-108) mmol/L Carbon Dioxide 25 (21-32) mmol/L Anion Gap 13.5 (5.0-14.0) mmol/L BUN 21 H (7-18) mg/dL Creatinine 1.0 (0.6-1.0) mg/dL Est Cr Clr Drug Dosing 30.96 mL/min Estimated GFR (MDRD) 53 L (>60) Glucose 86 (74-106) mg/dL Calcium 9.0 (8.5-10.1) mg/dL Magnesium 2.0 (1.8-2.4) mg/dL Total Bilirubin 0.2 (0.2-1.0) mg/dL AST 14 L (15-37) U/L ALT 16 (12-78) U/L Alkaline Phosphatase 105 (46-116) U/L Troponin I < 0.017 (0.000-0.056) ng/mL Total Protein 6.8 (6.4-8.2) g/dL Albumin 2.9 L (3.4-5.0) g/dL Globulin 3.9 H (2.3-3.5) g/dL Albumin/Globulin Ratio 0.7 L (1.2-2.2) TSH, Ultra Sensitive 0.841 (0.358-3.740) uIU/mL Med Orders - Current: Current Medications Acetaminophen (Acetaminophen 325 Mg Tab) 650 mg PO Q4H PRN PRN Reason: Pain (Mild 1-3)/fever Last Admin: 07/23/20 01:05 Dose: 650 mg Documented by: Albuterol (Albuterol 0.083% 2.5 Mg/3 Ml Neb Soln) 2.5 mg NEB Q4H PRN PRN Reason: Shortness Of Breath/wheezing Albuterol/Ipratropium (Albuterol/Ipratropium 4 Gm Inhalation Spur) 0 gm INH QIDRT [facility] Aminophylline (Aminophylline 500 Mg/20 Ml Sdv) 125 mg IVPUSH ONETIME PRN PRN Reason: Other Stop: 07/23/20 14:00 Last Admin: 07/23/20 09:37 Dose: 125 mg Documented by: Colchicine (Colchicine 0.6 Mg Tab Own Med ) 0.3 mg PO BID [facility] Last Admin: 07/23/20 11:11 Dose: 0.3 mg Documented by: Diclofenac Sodium (Diclofenac Sodium 1% Gel 100 Gm Tube) 0 gm TOP QID [facility] Last Admin: 07/23/20 11:12 Dose: Not Given Documented by: Lidocaine (Lidocaine 5% 700 Mg Patch) 700 mg TRDERM DAILY [facility] Last Admin: 07/23/20 11:12 Dose: Not Given Documented by: Magnesium Hydroxide (Magnesium Hydroxide 400 Mg/5 Ml Susp 30 Ml Cup) 30 ml PO Q12H PRN PRN Reason: Constipation Metoprolol Tartrate (Metoprolol Tartrate 25 Mg Tab Own Med ) 12.5 mg PO BID [facility] Last Admin: 07/23/20 11:11 Dose: 12.5 mg Documented by: Miscellaneous Information (Remove Lidocaine Patch) 1 ea TRDERM BEDTIME [facility] Fluticasone/Salmeterol [Advair Diskus] 100-50mcg Own Med 1 puff INH BID [facility] Last Admin: 07/22/20 20:33 Dose: 1 puff Documented by: Omeprazole 20mg (Ptom) 0 mg PO BID PRN PRN Reason: Dyspepsia Last Admin: 07/23/20 11:14 Dose: 20 mg Documented by: Ondansetron HCl (Ondansetron 4 Mg Tab.Dis) 4 mg PO Q6H PRN PRN Reason: Nausea able to take PO Ondansetron HCl (Ondansetron 4 Mg/2 Ml Sdv) 4 mg IV Q6H PRN PRN Reason: Nausea/Vomiting Polyethylene Glycol (Polyethylene Glycol 3350 Powder 17 Gm Packet) 17 gm PO DAILY PRN PRN Reason: Constipation Senna/Docusate Sodium (Docusate Sodium/Sennosides 50-8.6 Mg Tab) 1 tab PO BID PRN PRN Reason: Constipation Discontinued Medications Metoprolol Tartrate (Metoprolol Tartrate 25 Mg Tab) 12.5 mg PO ONETIME ONE Stop: 07/22/20 16:14 Last Admin: 07/22/20 17:08 Dose: 12.5 mg Documented by: Regadenoson (Regadenoson 0.4 Mg/5 Ml Syringe) 0.4 mg IVPUSH ONETIME ONE Stop: 07/23/20 09:21 Last Admin: 07/23/20 09:14 Dose: 0.4 mg Documented by: Verapamil HCl (Verapamil 5 Mg/2 Ml Sdv) 2.5 mg IVPUSH ONETIME ONE Stop: 07/22/20 14:21 Last Admin: 07/22/20 17:06 Dose: Not Given Documented by:
[2020-07-23] MEDS: SALMETEROL INH SCH (12:26)
[2020-07-23] MEDS: FLUTICASONE INH SCH (12:26)
--- NOTE | 2020-07-23 15:52 | CRLNM ---
MYOCARDIAL PERFUSION SCAN CLINICAL HISTORY: 80-year-old female. Paroxysmal atrial fibrillation. TECHNIQUE: Resting SPECT and stress gated SPECT with wall motion and ejection fraction) Stress: Pharmacologic Lexiscan (0.4 mg) IV Dose (Stress/Rest): 26.5 Ci/8.5 mCi Tc-99m Tetrofosmin IV Comparison: None FINDINGS: There is good uptake of activity by the left ventricle. No left ventricular enlargement is noted. Distribution of activity appears homogeneous throughout the left ventricle. No significant fixed or reversible defects are identified. No significant fixed or reversible defects are identified. The gated images demonstrate a normal left ventricular ejection fraction of approximately 65 percent. No regional wall motion abnormalities are identified. IMPRESSION: 1. There is no evidence of significant myocardial ischemia or infarction. 2. Normal left ventricular ejection fraction of approximately 65 percent. RINKU THAPA M.D. [employer] [email or web address] LARS/Dictated by: Rinku Thapa MD @ 07/23/2020 12:29:00 PM (Electronically Signed)
--- NOTE | 2020-07-25 12:11 | STRESS ---
DATE OF SERVICE: 07/23/2020 PROPOSED PROCEDURE: Lexiscan stress test. INDICATIONS FOR STRESS TEST: Chest pain, atrial fibrillation. DESCRIPTION OF THE PROCEDURE: Lori is an 80-year-old female here for an inpatient stress test. Her baseline blood pressure is 153/89 and her pulse is 58. Baseline EKG shows a sinus rhythm with a normal axis and no significant abnormalities. The stress test was administered per the protocol with injection of the Lexiscan followed by the Myoview. Review of the continuous EKG monitoring showed there were no significant changes to the ST segments or T-waves during the stress or recovery portion of the test. Her heart rate did rise from 58 up to a maximum of 91 at the 2-minute timoteo of recovery before declining. Her blood pressure remained essentially stable throughout the course of the stress test. Review of the power generation technician's notes suggest that she did have a 3/10 chest pain upon arrival to the stress room. After the Lexiscan was administered, she experienced both shortness of breath as well as severe 10/10 chest and abdominal pain. This persisted into the recovery phase, and she received 125 mg of IV aminophylline at 4 minutes and 35 seconds. Pain and shortness of breath gradually subsided throughout the recovery phase. At the completion of the test, her blood pressure is 143/80 and her pulse is 63. IMPRESSION: Negative EKG portion of the stress test. The patient did experience chest pain and dyspnea, which increased after the Lexiscan was administered. The nuclear medicine portion will be interpreted separately. Devon Coats MD /[id number]
== END 2020-07-23 13:00 | disposition home or self-care (01) ==
LOC: JP.ED 14:04 → JP.MS 16:16
PROVIDERS: ADMIT Internal Medicine; ATTEND Internal Medicine
DX: I48.0 Paroxysmal atrial fibrillation (principal); C34.12 Malignant neoplasm of upper lobe, left bronchus or lung; J44.9 Chronic obstructive pulmonary disease, unspecified; Z88.2 Allergy status to sulfonamides; Z88.0 Allergy status to penicillin; Z79.899 Other long term (current) drug therapy; Z91.040 Latex allergy status; Z98.890 Other specified postprocedural states; Z87.891 Personal history of nicotine dependence
CPT/HCPCS: 36415; 78452; 80053; 83735; 84443; 84484; 85025; 93005; 94640; A9270; A9500; J0280; J2785; 99285-25; J3490

== ENCOUNTER 2021-01-02 13:54 | Emergency (ER) | payer MEDICARE, OTHER ==
--- NOTE | 2021-01-02 14:37 | EDM.PDOC ---
ED HPI GENERAL MEDICAL PROBLEM - General Chief Complaint: Cardiovascular Problem Stated Complaint: CHEST PAIN Time Seen by Provider: 01/02/21 14:10 Source of Information: Reports: Patient, Family History Limitations: Reports: No Limitations - History of Present Illness INITIAL COMMENTS - FREE TEXT/NARRATIVE: 80-year-old female that for the last couple days has had a bandlike pain around her chest with activity, and shortness of breath and palpitations. No fevers or chills. She has pain in her upper abdomen as well. She felt like her heart was racing several times in the last 12 hours. Now that she is here in the emergency room she feels much better, her pulse was 71, O2 sats 96% on room air and blood pressure 101/66. Still has some mild pressure in her chest. Onset: Unknown/Unsure (Symptoms have been waxing and waning for the at least the last couple of days) Location: Reports: Chest, Abdomen (Upper abdomen and lower chest), Radiates to (Radiates in a bandlike distribution around the middle of the body.) Associated Symptoms: Reports: Chest Pain, Shortness of Breath (Especially with a ctivity). Denies: Cough, Diaphoresis, Loss of Appetite - Related Data Allergies Allergy/AdvReac Type Severity Reaction Status Date / Time Penicillins Allergy Severe Hives Verified 01/02/21 14:01 Sulfa (Sulfonamide Allergy Severe Hives Verified 01/02/21 14:01 Antibiotics) hylan G-F 20 [From [employer]] Allergy Intermediate n&v, Verified 01/02/21 14:01 swelling,joint pain,muscle pain latex Allergy Intermediate Rash Verified 01/02/21 14:01 Home Meds: Home Meds Calcium Carb & Citrate/Vit D3 [Calcium + Vitamin D3 Caplet] 1 tab PO DAILY 03/04/13 [History] Fluticasone/Salmeterol [Advair 100-50] 1 puff INH BID 03/04/13 [History] Multivit with Calcium,Iron,Min [Therapeutic M] 2 tab PO DAILY 03/04/13 [History] Polyethylene Glycol 3350 [MiraLAX] 17 gm PO DAILY PRN 01/04/15 [History] Albuterol/Ipratropium [Combivent Respimat] 1 inhalation IH QID 08/21/18 [History] Omeprazole Magnesium [Prilosec Otc] 20 mg PO BID PRN 08/21/18 [History] Vit C/E/Zn/Coppr/Lutein/Zeaxan [Preservision Areds 2 Softgel] 1 each PO BID 11/20/18 [History] Acetaminophen [Tylenol] 650 mg PO Q4H PRN 02/28/19 [History] Diclofenac Sodium [Voltaren] 4 g TP QID 02/28/19 [History] Colchicine 0.3 mg PO BID 06/21/20 [History] Albuterol [Proventil Neb Soln] 0.63 mg NEB BID 07/20/20 [History] Lidocaine 5% [Lidoderm 5%] 1 patch TOP DAILY 07/22/20 [History] Metoprolol Succinate [Toprol XL] 25 mg PO DAILY #30 tab.er 07/23/20 [Rx] Metoprolol Tartrate 12.5 mg PO DAILY PRN #30 tablet 07/23/20 [Rx] Past Medical History HEENT History: Reports: Cataract, Impaired Vision, Sinusitis, Other (See Below) Other HEENT History: wears glasses, seasonal allergies Cardiovascular History: Reports: Aneurysm, Arrhythmia Respiratory History: Reports: COPD Gastrointestinal History: Reports: Chronic Constipation, Colon Polyp, Hemorrhoids, Jaundice, Other (See Below) Other Gastrointestinal History: hepatitis over40 years ago when Genitourinary History: Reports: UTI, Recurrent 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 Oncologic (Cancer) History: Reports: Basal Cell Carcinoma, Lung, Squamous Cell Carcinoma Dermatologic History: Reports: Eczema, Other (See Below) Other Dermatologic History: eczema. Ej Sebastián syndrome - Infectious Disease History Infectious Disease History: Reports: Chicken Pox, Measles, Mumps Other Infectious Disease History: Hepatitis unknown type - Past Surgical History Head Surgeries/Procedures: Reports: None HEENT Surgical History: Reports: Cataract Surgery Cardiovascular Surgical History: Reports: AAA Repair, Aneurysm Other Cardiovascular Surgeries/Procedures: aueurysm surgery end July 2017 endoleak aortic graft Respiratory Surgical History: Reports: None GI Surgical History: Reports: Colonoscopy, EGD, Other (See Below) Other GI Surgeries/Procedures: Abdominal aneurysm July 2017 Female Surgical History: Reports: None Endocrine Surgical History: Reports: None Neurological Surgical History: Reports: C-Spine Musculoskeletal Surgical History: Reports: None Oncologic Surgical History: Reports: None Dermatological Surgical History: Reports: Skin Biopsy Social & Family History - Family History Family Medical History: No Pertinent Family History - Tobacco Use Tobacco Use Status *Q: Current Every Day Tobacco User Years of Tobacco use: 60 Packs/Tins Daily: 0.2 Used Tobacco, but Quit: No Second Hand Smoke Exposure: No - Caffeine Use Caffeine Use: Reports: Coffee Caffeine Use Comment: 1 cup daily - Recreational Drug Use Recreational Drug Use: No ED ROS GENERAL - Review of Systems Review Of Systems: See Below Constitutional: Reports: Malaise. Denies: Fever, Chills HEENT: Denies: Nosebleed, Throat Pain Respiratory: Reports: Shortness of Breath. Denies: Pleuritic Chest Pain, Cough Cardiovascular: Reports: Chest Pain, Dyspnea on Exertion, Palpitations. Denies: Lightheadedness GI/Abdominal: Reports: Abdominal Pain (Upper abdomen, epigastric area has pain with activity). Denies: Decreased Appetite, Melena, Nausea : Reports: No Symptoms Skin: Reports: No Symptoms Neurological: Reports: No Symptoms. Denies: Headache Psychiatric: Reports: Anxiety ED EXAM, GENERAL - Physical Exam Exam: See Below Exam Limited By: No Limitations General Appearance: Alert, Anxious Eye Exam: Bilateral Eye: Normal Inspection Head: Atraumatic Neck: Supple, Non-Tender Respiratory/Chest: No Respiratory Distress, Wheezing (Very rare scattered expiratory wheezes and a few scattered rhonchi are heard but excellent air movement to the bases bilaterally) Cardiovascular: Regular Rate, Rhythm. No: Extra Beats Extremities: Normal Inspection. No: Pedal Edema Neurological: Alert, Oriented, No Motor/Sensory Deficits Psychiatric: Anxious Skin Exam: Warm, Dry Course - Vital Signs Last Recorded V/S: Last Vital Signs Temp 96.9 F 01/02/21 14:11 Pulse 61 01/02/21 16:10 Resp 22 H 01/02/21 15:41 BP 103/67 01/02/21 16:10 Pulse Ox 96 01/02/21 15:41 - Orders/Labs/Meds Orders: Active Orders 24 hr Category Date Time Status Chest 2V [CR] Routine Exams 01/02/21 14:27 Taken Labs: Laboratory Tests 01/02/21 01/02/21 Range/Units 14:43 14:43 WBC 6.5 (4.5-11.0) K/uL RBC 4.00 (3.30-5.50) M/uL Hgb 13.1 (12.0-15.0) g/dL Hct 39.8 (36.0-48.0) % MCV 100 H (80-98) fL MCH 33 H (27-31) pg MCHC 33 (32-36) % Plt Count 271 (150-400) K/uL Neut % (Auto) 56.6 (36-66) % Lymph % (Auto) 31.0 (24-44) % Gilchrist % (Auto) 10.0 H (2-6) % Eos % (Auto) 1.9 L (2-4) % Baso % (Auto) 0.5 (0-1) % Sodium 136 L (140-148) mmol/L Potassium 3.9 (3.6-5.2) mmol/L Chloride 102 (100-108) mmol/L Carbon Dioxide 27 (21-32) mmol/L Anion Gap 10.9 (5.0-14.0) mmol/L BUN 22 H (7-18) mg/dL Creatinine 1.0 (0.6-1.0) mg/dL Est Cr Clr Drug Dosing 36.02 mL/min Estimated GFR (MDRD) 53 L (>60) Glucose 99 (74-106) mg/dL Calcium 8.7 (8.5-10.1) mg/dL Total Bilirubin 0.3 (0.2-1.0) mg/dL AST 15 (15-37) U/L ALT 16 (12-78) U/L Alkaline Phosphatase 104 (46-116) U/L Troponin I < 0.017 (0.000-0.056) ng/mL Total Protein 6.7 (6.4-8.2) g/dL Albumin 3.1 L (3.4-5.0) g/dL Globulin 3.6 H (2.3-3.5) g/dL Albumin/Globulin Ratio 0.9 L (1.2-2.2) Meds: Medications Discontinued Medications Generic Name Dose Route Start Last Admin Trade Name Freq PRN Reason Stop Dose Admin Metoprolol Tartrate 25 mg 01/02/21 16:05 01/02/21 16:10 Metoprolol Tartrate 25 Mg Tab PO 01/02/21 16:06 25 mg ONETIME ONE Administration - Re-Assessments/Exams Free Text/Narrative Re-Assessment/Exam: 01/02/21 15:21 Patient was placed on cardiac monitoring and has a normal sinus rhythm with a rate of 71, no QRS widening, first-degree block or ST elevation in lead II. Two-view chest x-ray was obtained as well as a CBC CMP and troponin. 01/02/21 16:06 2 view chest x-ray is stable without infiltrates or congestive failure. Troponin is 0, CBC and CMP are also reassuring. 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 On her discharge instructions she was told to take an extra metoprolol which she has breakthrough palpitations and pain such as she has been having the last couple of days and she has not done that. She was in the em ergency room for an hour and a half, remained asymptomatic and in normal sinus rhythm. She was given 25 mg of oral metoprolol, and encouraged to resume her regular medications and return if symptoms recur. Departure - Departure Time of Disposition: 16:18 Disposition: Home, Self-Care 01 Clinical Impression: Palpitations, Atypical chest pain, Dyspnea on exertion Instructions: Nonspecific Chest Pain, Adult Referrals: Lin Sinclair MD [Primary Care Provider] - Forms: ED Department Discharge Care Plan Goals: Continue your regular medications tomorrow, remember to take an extra metoprolol if symptoms of palpitations, fast heart rate or chest pressure are recurring or persistent. Return to the emergency room at any time if you feel you are worsening or need further evaluation. Sepsis Event Note (ED) - Focused Exam Vital Signs: Vital Signs Temp Pulse Pulse Resp BP BP Pulse Ox 01/02/21 16:10 61 103/67 01/02/21 15:41 63 22 H 95/66 96 01/02/21 14:57 67 29 H 101/74 97 01/02/21 14:38 72 22 H 97/67 96 01/02/21 14:11 96.9 F 77 27 H 100/63 96 01/02/21 14:03 96.9 F 77 27 H 100/63 96 - My Orders Last 24 Hours: My Active Orders 01/02/21 14:27 Chest 2V [CR] Routine - Assessment/Plan Last 24 Hours: My Active Orders 01/02/21 14:27 Chest 2V [CR] Routine
[2021-01-02] MEDS ORDERED: Metoprolol Tartrate 25 MG Tab PO ONE (16:05)
[2021-01-02 16:10] VITALS: BP 103/67; PULSE 61
--- NOTE | 2021-01-03 09:57 | CR ---
CHEST: 2 view CLINICAL HISTORY:Dyspnea COMPARISON:07/20/2020 FINDINGS: Lungs are emphysematous. Heart size and pulmonary vascular are normal. There are atherosclerotic changes in the aorta. No infiltrates are seen. Impression: Emphysematous changes No acute cardiac pulmonary process
== END 2021-01-02 16:18 | disposition home or self-care (01) ==
LOC: JP.ED 13:54
DX: R07.89 Other chest pain (principal); R00.2 Palpitations; R06.02 Shortness of breath; J44.9 Chronic obstructive pulmonary disease, unspecified; Z72.0 Tobacco use; Z88.0 Allergy status to penicillin; Z88.2 Allergy status to sulfonamides; Z91.040 Latex allergy status; Z88.8 Allergy status to other drugs, medicaments and biological substances
CPT/HCPCS: 36415; 71046; 80053; 84484; 85025; 99285; A9270

== ENCOUNTER 2022-03-11 15:34 | Emergency (ER) | payer MEDICARE, OTHER ==
[2022-03-11] MEDS ORDERED: Ketorolac 30 MG/ML SDV IM ONE (16:20)
[2022-03-11 16:43] VITALS: BP 137/81; PULSE 60
[2022-03-11 16:54] LABS: TROPONIN I HIGH SENSITIVITY 5.5 pg/mL (<=60.3)
== END 2022-03-11 18:01 | disposition home or self-care (01) ==
LOC: JP.ED 15:34
DX: R07.89 Other chest pain (principal); J44.9 Chronic obstructive pulmonary disease, unspecified; Z88.0 Allergy status to penicillin; Z88.2 Allergy status to sulfonamides; Z91.040 Latex allergy status; Z79.899 Other long term (current) drug therapy
CPT/HCPCS: 36415; 71045; 80048; 84484; 85025; 93005; 96372; 99285; J1885

== ENCOUNTER 2022-07-18 10:00 | Inpatient (IN) | payer MEDICARE, OTHER ==
[2022-07-18] MEDS ORDERED: Albuterol/Ipratropium 3.0-0.5 MG/3 ML Neb Soln NEB ONE (10:07)
[2022-07-18] MEDS ORDERED: Sodium Chloride 0.9% 10 ML Syringe FLUSH PRN (10:13)
[2022-07-18] MEDS ORDERED: methylPREDNISolone Sodium Succinate 40 MG/1 ML SDV IVPUSH ONE (10:16)
[2022-07-18 10:53] LABS: ESTIMATED GFR 50 mL/min (>60); TROPONIN I HIGH SENSITIVITY 7.1 pg/mL (<=60.3)
[2022-07-18 11:13] LABS: CORONAVIRUS COVID-19 NAA NEGATIVE (NEGATIVE)
[2022-07-18] MEDS ORDERED: Azithromycin 250 MG Tab PO ONE (12:35)
[2022-07-18] MEDS ORDERED: methylPREDNISolone Sodium Succinate 125 MG/2 ML SDV IVPUSH ONE ×2 (12:36→23:00)
[2022-07-18] MEDS ORDERED: Benzonatate 100 MG Cap PO PRN (14:22)
[2022-07-18] MEDS ORDERED: Acetaminophen 325 MG Tab PO PRN (14:22)
[2022-07-18] MEDS ORDERED: guaiFENesin/Dextromethorphan 100-10 MG/5 ML Soln 10 ML Cup PO PRN (14:22)
[2022-07-18] MEDS ORDERED: Ondansetron 4 MG Tab.DIS PO PRN (14:22)
[2022-07-18] MEDS ORDERED: Sodium Chloride 0.9% 1,000 ML IV SCH (14:22)
[2022-07-18] MEDS ORDERED: Albuterol 0.083% 2.5 MG/3 ML Neb Soln NEB PRN (14:22)
[2022-07-18] MEDS ORDERED: Ondansetron 4 MG/2 ML SDV IV PRN (14:22)
[2022-07-18] MEDS ORDERED: Magnesium Hydroxide 400 MG/5 ML Susp 30 ML Cup PO PRN (14:22)
[2022-07-18] MEDS: cefTRIAXone 1 GM in Sodium Chloride 0.9% 50 ML IV SCH (14:55)
[2022-07-18] MEDS: Albuterol/Ipratropium 3.0-0.5 MG/3 ML Neb Soln NEB SCH ×2 (15:05→20:00)
[2022-07-18] MEDS: Pantoprazole 40 MG Tab.CR PO SCH (16:51)
[2022-07-18] MEDS: Enoxaparin 40 MG/0.4 ML Syringe SUBCUT SCH (16:51)
[2022-07-18] MEDS: Multivitamins with Iron/Calcium/Folic Acid/Minerals Tab PO SCH (20:00)
[2022-07-18] MEDS: Lactobacillus Rhamnosus GG (Probiotic) Cap PO SCH (20:00)
[2022-07-18] MEDS: Melatonin 3 MG Tab PO PRN (20:21)
[2022-07-19] MEDS: Albuterol/Ipratropium 3.0-0.5 MG/3 ML Neb Soln NEB SCH ×4 (06:58→20:38)
[2022-07-19] MEDS: Pantoprazole 40 MG Tab.CR PO SCH ×2 (07:32→16:16)
[2022-07-19] MEDS: predniSONE 20 MG Tab PO SCH (07:32)
[2022-07-19] MEDS: Lactobacillus Rhamnosus GG (Probiotic) Cap PO SCH ×2 (08:34→20:38)
[2022-07-19] MEDS: Multivitamins with Iron/Calcium/Folic Acid/Minerals Tab PO SCH ×2 (08:34→20:38)
[2022-07-19] MEDS: Metoprolol Succinate 25 MG Tab.ER PO SCH (08:35)
[2022-07-19] MEDS: Colchicine 0.6 MG Tab PO SCH (08:35)
[2022-07-19] MEDS ORDERED: Lidocaine 5% 700 MG Patch TOP PRN (09:00)
[2022-07-19] MEDS: Azithromycin 250 MG Tab PO SCH (12:04)
[2022-07-19] MEDS: cefTRIAXone 1 GM in Sodium Chloride 0.9% 50 ML IV SCH (14:42)
[2022-07-19] MEDS: Enoxaparin 40 MG/0.4 ML Syringe SUBCUT SCH (16:17)
[2022-07-19] MEDS: Melatonin 3 MG Tab PO PRN (21:03)
[2022-07-20] MEDS: Albuterol/Ipratropium 3.0-0.5 MG/3 ML Neb Soln NEB SCH ×4 (07:15→20:43)
[2022-07-20] MEDS: Colchicine 0.6 MG Tab PO SCH (08:07)
[2022-07-20] MEDS: Lactobacillus Rhamnosus GG (Probiotic) Cap PO SCH ×2 (08:07→20:43)
[2022-07-20] MEDS: Pantoprazole 40 MG Tab.CR PO SCH ×2 (08:07→15:31)
[2022-07-20] MEDS: Multivitamins with Iron/Calcium/Folic Acid/Minerals Tab PO SCH ×2 (08:07→20:43)
[2022-07-20] MEDS: Metoprolol Succinate 25 MG Tab.ER PO SCH (08:07)
[2022-07-20] MEDS: predniSONE 20 MG Tab PO SCH (08:07)
[2022-07-20] MEDS ORDERED: Bisacodyl 10 MG Supp RECTAL ONE (09:00)
[2022-07-20] MEDS: Azithromycin 250 MG Tab PO SCH (12:55)
[2022-07-20] MEDS: Enoxaparin 40 MG/0.4 ML Syringe SUBCUT SCH (15:31)
[2022-07-20] MEDS: cefTRIAXone 1 GM in Sodium Chloride 0.9% 50 ML IV SCH (15:31)
[2022-07-20] MEDS: Melatonin 3 MG Tab PO PRN (20:45)
[2022-07-21] MEDS: Albuterol/Ipratropium 3.0-0.5 MG/3 ML Neb Soln NEB SCH (07:27)
[2022-07-21] MEDS: predniSONE 20 MG Tab PO SCH (07:47)
[2022-07-21] MEDS: Pantoprazole 40 MG Tab.CR PO SCH ×2 (07:47→16:23)
[2022-07-21] MEDS: Metoprolol Succinate 25 MG Tab.ER PO SCH (09:16)
[2022-07-21] MEDS: Lactobacillus Rhamnosus GG (Probiotic) Cap PO SCH ×2 (09:16→20:09)
[2022-07-21] MEDS: Colchicine 0.6 MG Tab PO SCH (09:17)
[2022-07-21] MEDS: Multivitamins with Iron/Calcium/Folic Acid/Minerals Tab PO SCH ×2 (09:17→20:09)
[2022-07-21] MEDS ORDERED: Albuterol 90 MCG/6.7 GM Inhaler INH PRN (10:30)
[2022-07-21] MEDS ORDERED: Albuterol 90 MCG/6.7 GM Inhaler INH SCH (11:00)
[2022-07-21] MEDS ORDERED: Levofloxacin 500 MG Tab PO SCH (13:00)
[2022-07-21] MEDS: Levofloxacin 250 MG Tab PO SCH (13:17)
[2022-07-21] MEDS: Albuterol 90 MCG/6.7 GM Inhaler INH SCH ×2 (14:33→20:09)
[2022-07-21] MEDS: Enoxaparin 40 MG/0.4 ML Syringe SUBCUT SCH (16:23)
[2022-07-21] MEDS: Melatonin 3 MG Tab PO PRN (20:45)
[2022-07-22] MEDS: Albuterol 90 MCG/6.7 GM Inhaler INH SCH ×2 (06:59→10:42)
[2022-07-22] MEDS: predniSONE 20 MG Tab PO SCH (07:31)
[2022-07-22] MEDS: Pantoprazole 40 MG Tab.CR PO SCH (07:31)
[2022-07-22] MEDS: Metoprolol Succinate 25 MG Tab.ER PO SCH (08:39)
[2022-07-22] MEDS: Levofloxacin 250 MG Tab PO SCH (08:40)
[2022-07-22] MEDS: Lactobacillus Rhamnosus GG (Probiotic) Cap PO SCH (08:40)
[2022-07-22] MEDS: Colchicine 0.6 MG Tab PO SCH (08:40)
[2022-07-22] MEDS: Multivitamins with Iron/Calcium/Folic Acid/Minerals Tab PO SCH (08:40)
[2022-07-22 12:48] VITALS: BP 152/97; PULSE 82
== END 2022-07-22 13:54 | disposition home health service (06) | DRG 189 ==
LOC: JP.ED 10:00 → JP.MS 13:09
PROVIDERS: ADMIT Internal Medicine; ATTEND Internal Medicine
DX: J96.01 Acute respiratory failure with hypoxia (principal); J44.1 Chronic obstructive pulmonary disease with (acute) exacerbation; L51.1 Stevens-Johnson syndrome; I48.0 Paroxysmal atrial fibrillation; J20.9 Acute bronchitis, unspecified; B96.20 Unspecified Escherichia coli [E. coli] as the cause of diseases classified elsewhere; K59.09 Other constipation; N18.32 Chronic kidney disease, stage 3b; M19.90 Unspecified osteoarthritis, unspecified site; M54.9 Dorsalgia, unspecified; M54.2 Cervicalgia; Z20.822 Contact with and (suspected) exposure to COVID-19; M81.0 Age-related osteoporosis without current pathological fracture; Z88.2 Allergy status to sulfonamides; Z79.51 Long term (current) use of inhaled steroids; Z79.899 Other long term (current) drug therapy; Z88.8 Allergy status to other drugs, medicaments and biological substances; Z91.040 Latex allergy status; Z86.010 Personal history of colon polyps; Z98.49 Cataract extraction status, unspecified eye; Z98.890 Other specified postprocedural states; Z87.891 Personal history of nicotine dependence; Z88.0 Allergy status to penicillin
CPT/HCPCS: 0241U; 36415; 71045; 71045-26; 80048; 80053; 83605; 84484; 85025; 85027; 87070; 87077; 87186; 87205; 93005; 93010; 94640; 94667; 94668; 96374; 96376; 97110-GP; 97116-GP; 97161-GP; 97530-GP; 99222; 99232; 99238; 99284; 99285-25; A9270-GY; J0696; J1650; J2920; J2930; J3490; J7030; J7512; J7620

== ENCOUNTER 2022-07-28 11:34 | Emergency (ER) | payer MEDICARE, OTHER ==
[2022-07-28] MEDS ORDERED: Sodium Chloride 0.9% 10 ML Syringe FLUSH PRN ×2 (12:46→13:55)
[2022-07-28] MEDS ORDERED: Albuterol/Ipratropium 3.0-0.5 MG/3 ML Neb Soln NEB ONE (12:46)
[2022-07-28 13:02] VITALS: BP 116/79; PULSE 78
[2022-07-28 13:29] LABS: ESTIMATED GFR 45 mL/min (>60)
[2022-07-28] MEDS ORDERED: Sodium Chloride 0.9% 500 ML IV ONE (13:34)
[2022-07-28] MEDS ORDERED: Sodium Chloride 0.9% 50 ML IV ONE (13:55)
[2022-07-28] MEDS ORDERED: Iopamidol 612 MG/ML 100 ML Bottle IV PRN (13:55)
[2022-07-28] MEDS ORDERED: Acetaminophen 500 MG Tab PO ONE (14:33)
== END 2022-07-28 15:48 | disposition home or self-care (01) ==
LOC: JP.ED 11:34
DX: K30 Functional dyspepsia (principal); I95.1 Orthostatic hypotension; R33.9 Retention of urine, unspecified; E86.0 Dehydration; R63.0 Anorexia; J44.9 Chronic obstructive pulmonary disease, unspecified; Z91.040 Latex allergy status; Z88.2 Allergy status to sulfonamides; Z88.0 Allergy status to penicillin; Z88.8 Allergy status to other drugs, medicaments and biological substances
CPT/HCPCS: 36415; 71045; 74177; 80053; 81001; 83605; 83690; 84443; 85025; 87040; 93005; 94640; 96360; 99285; A9270; J3490; J7040; Q9967; 93010; 99284; J7620

== ENCOUNTER 2022-08-01 19:26 | Emergency (ER) | payer MEDICARE, OTHER ==
[2022-08-01 20:00] VITALS: BP 120/75; PULSE 66
== END 2022-08-01 21:34 | disposition home or self-care (01) ==
LOC: JP.ED 19:26
DX: T83.018A Breakdown (mechanical) of other urinary catheter, initial encounter (principal); J44.9 Chronic obstructive pulmonary disease, unspecified; Z88.0 Allergy status to penicillin; Z88.2 Allergy status to sulfonamides; Z91.040 Latex allergy status; Z88.8 Allergy status to other drugs, medicaments and biological substances; Z79.899 Other long term (current) drug therapy
CPT/HCPCS: 99283

== ENCOUNTER 2022-10-11 18:28 | Emergency (ER) | payer MEDICARE, OTHER ==
[2022-10-11] MEDS ORDERED: Colchicine 0.6 MG Tab PO ONE ×2 (20:13→21:15)
[2022-10-11] MEDS ORDERED: predniSONE 20 MG Tab PO ONE (20:13)
[2022-10-11 20:26] LABS: BASOPHILS ABSOLUTE AUTO 0.05 K/uL (0.00-0.10); BASOPHILS PERCENT AUTO 0.5 % (0.1-1.3); EOSINOPHILS ABSOLUTE AUTO 0.11 K/uL (0.00-0.40); EOSINOPHILS PERCENT AUTO 1.1 % (0.0-5.4); HEMATOCRIT 37.3 % (34.3-46.0); HEMOGLOBIN 12.6 g/dL (11.2-15.5); IMMATURE GRAN ABSOLUTE AUTO 0.03 K/uL (0.00-0.23); IMMATURE GRAN PERCENT AUTO 0.3 % (0.0-0.7); LYMPHOCYTES ABSOLUTE AUTO 2.71 K/uL (0.8-3.3); LYMPHOCYTES PERCENT AUTO 28.2 % (11.4-47.7); MEAN CORPUSCULAR HEMOGLOBIN 33.2 pg (31.6-35.5); MEAN CORPUSCULAR HGB CONC 33.8 g/dL (31.6-35.5); MEAN CORPUSCULAR VOLUME 98.2 fL (81.4-99.0); MONOCYTES ABSOLUTE AUTO 1.06 K/uL (0.20-0.90); NEUTROPHILS ABSOLUTE AUTO 5.65 K/uL (1.0-7.6); NEUTROPHILS PERCENT AUTO 58.9 % (40.0-78.1); PLATELET COUNT,PLT 312 K/uL (130-375); WHITE BLOOD CELL COUNT,WBC 9.6 K/uL (3.2-11.0)
[2022-10-11 20:33] VITALS: BP 139/88; PULSE 75
[2022-10-11 20:43] LABS: ANION GAP 11.1 mmol/L (5.0-14.0); C-REACTIVE PROTEIN 3.85 mg/dL (0.0-0.3); CALCIUM 8.7 mg/dL (8.5-10.1); CREATININE 0.9 mg/dL (0.6-1.0); EST CRCL DRUG DOSING (CG) 40.7 mL/min; POTASSIUM,K 4.1 mmol/L (3.6-5.2)
== END 2022-10-11 21:26 | disposition home or self-care (01) ==
LOC: JP.ED 18:28
DX: M10.9 Gout, unspecified (principal); E16.2 Hypoglycemia, unspecified; J44.9 Chronic obstructive pulmonary disease, unspecified; I48.91 Unspecified atrial fibrillation; Z79.899 Other long term (current) drug therapy; Z88.0 Allergy status to penicillin; Z88.2 Allergy status to sulfonamides; Z91.040 Latex allergy status
CPT/HCPCS: 36415; 80048; 85025; 86140; 99283; A9270; J7512

== ENCOUNTER 2023-04-08 11:37 | Emergency (ER) | payer MEDICARE, OTHER ==
[2023-04-08] MEDS ORDERED: Ketorolac 30 MG/ML SDV IM ONE (11:59)
[2023-04-08 12:12] LABS: BASOPHILS ABSOLUTE AUTO 0.06 K/uL (0.00-0.10); BASOPHILS PERCENT AUTO 0.4 % (0.1-1.3); EOSINOPHILS PERCENT AUTO 0.1 % (0.0-5.4); HEMATOCRIT 39.4 % (34.3-46.0); HEMOGLOBIN 12.9 g/dL (11.2-15.5); IMMATURE GRAN ABSOLUTE AUTO 0.08 K/uL (0.00-0.23); IMMATURE GRAN PERCENT AUTO 0.5 % (0.0-0.7); LYMPHOCYTES ABSOLUTE AUTO 2.52 K/uL (0.8-3.3); LYMPHOCYTES PERCENT AUTO 16.1 % (11.4-47.7); MEAN CORPUSCULAR HEMOGLOBIN 32.4 pg (31.6-35.5); MEAN CORPUSCULAR HGB CONC 32.7 g/dL (31.6-35.5); MONOCYTES ABSOLUTE AUTO 1.63 K/uL (0.20-0.90); MONOCYTES PERCENT AUTO 10.4 % (3.3-12.6); NEUTROPHILS ABSOLUTE AUTO 11.32 K/uL (1.0-7.6); NEUTROPHILS PERCENT AUTO 72.5 % (40.0-78.1); PLATELET COUNT,PLT 296 K/uL (130-375); RED BLOOD CELL COUNT 3.98 M/uL (3.77-5.24); WHITE BLOOD CELL COUNT,WBC 15.6 K/uL (3.2-11.0)
[2023-04-08 12:14] LABS: EOSINOPHILS ABSOLUTE AUTO 0.01 K/uL (0.00-0.40)
[2023-04-08 12:54] LABS: A/G RATIO 0.7 (1.2-2.2); ALANINE AMINOTRANSFERASE,ALT 13 U/L (12-78); ALBUMIN 2.9 g/dL (3.4-5.0); ALKALINE PHOSPHATASE 93 U/L (46-116); ASPARTATE AMNIOTRANSFERASE,AST 14 U/L (15-37); BLOOD UREA NITROGEN,BUN 17 mg/dL (7-18); CALCIUM 8.4 mg/dL (8.5-10.1); CARBON DIOXIDE,CO2 27 mmol/L (21-32); CHLORIDE,CL 101 mmol/L (100-108); CREATININE 1.1 mg/dL (0.6-1.0); ESTIMATED GFR 50 mL/min (>60); GLUCOSE RANDOM 89 mg/dL (74-106); POTASSIUM,K 4.2 mmol/L (3.6-5.2); SODIUM,NA 136 mmol/L (140-148)
[2023-04-08 12:55] LABS: ANION GAP 12.2 mmol/L (5.0-14.0)
[2023-04-08] MEDS ORDERED: Sodium Chloride 0.9% 10 ML Syringe FLUSH PRN (13:31)
[2023-04-08] MEDS ORDERED: Sodium Chloride 0.9% 50 ML IV ONE (13:34)
[2023-04-08] MEDS ORDERED: Sodium Chloride 0.9% 10 ML Syringe FLUSH ONE (13:34)
[2023-04-08] MEDS ORDERED: Sodium Chloride 0.9% 1,000 ML IV SCH ×2 (13:45)
[2023-04-08] MEDS ORDERED: Iopamidol 612 MG/ML 100 ML Bottle IV SCH (13:45)
[2023-04-08 15:15] VITALS: BP 109/67; PULSE 85
== END 2023-04-08 16:35 | disposition home or self-care (01) ==
LOC: JP.ED 11:37
DX: J18.9 Pneumonia, unspecified organism (principal); J44.9 Chronic obstructive pulmonary disease, unspecified; Z79.899 Other long term (current) drug therapy; Z88.0 Allergy status to penicillin; Z88.2 Allergy status to sulfonamides; Z91.040 Latex allergy status; Z88.8 Allergy status to other drugs, medicaments and biological substances
CPT/HCPCS: 36415; 71045; 74177; 80053; 83605; 83690; 84484; 85025; 93005; 96372; 99285; J1885; J3490; J7030; Q9967

== ENCOUNTER 2024-01-03 09:54 | Emergency (ER) | payer MEDICARE, OTHER ==
[2024-01-03 10:46] VITALS: BP 104/57; PULSE 58
[2024-01-03] MEDS ORDERED: Naloxone 0.4 MG/ML SDV IVPUSH PRN (11:32)
[2024-01-03] MEDS: HYDROmorphone 0.5 MG/0.5 ML Syringe IM ONE (11:46)
== END 2024-01-03 13:58 | disposition home or self-care (01) ==
LOC: JP.ED 09:54
DX: M19.011 Primary osteoarthritis, right shoulder (principal); J44.9 Chronic obstructive pulmonary disease, unspecified; I48.91 Unspecified atrial fibrillation; Z79.899 Other long term (current) drug therapy; Z91.040 Latex allergy status; Z88.8 Allergy status to other drugs, medicaments and biological substances; Z88.0 Allergy status to penicillin; Z88.2 Allergy status to sulfonamides
CPT/HCPCS: 73030; 96372; 99283; J1170

== ENCOUNTER 2024-01-05 18:29 | Emergency (ER) | payer MEDICARE, OTHER ==
[2024-01-05 19:42] VITALS: BP 93/61; PULSE 94
== END 2024-01-05 20:03 | disposition home or self-care (01) ==
LOC: JP.ED 18:29
DX: M10.9 Gout, unspecified (principal); J44.9 Chronic obstructive pulmonary disease, unspecified; Z79.51 Long term (current) use of inhaled steroids; Z79.891 Long term (current) use of opiate analgesic; Z79.899 Other long term (current) drug therapy; Z88.0 Allergy status to penicillin; Z88.2 Allergy status to sulfonamides; Z88.8 Allergy status to other drugs, medicaments and biological substances; Z91.040 Latex allergy status
CPT/HCPCS: 99283

== ENCOUNTER 2024-02-11 13:09 | Emergency (ER) | payer MEDICARE, OTHER ==
[2024-02-11] MEDS: Sodium Chloride 0.9% 500 ML IV ONE ×2 (14:36→17:29)
[2024-02-11 14:37] LABS: CORONAVIRUS COVID-19 NAA NEGATIVE (NEGATIVE); INFLUENZA A NAA NEGATIVE (NEGATIVE); INFLUENZA B NAA NEGATIVE (NEGATIVE); RESPIRATORY SYNCYTIAL VIR NAA NEGATIVE (NEGATIVE)
[2024-02-11 14:38] LABS: BASOPHILS ABSOLUTE AUTO 0.06 K/uL (0.00-0.10); BASOPHILS PERCENT AUTO 0.9 % (0.1-1.3); EOSINOPHILS ABSOLUTE AUTO 0.12 K/uL (0.00-0.40); EOSINOPHILS PERCENT AUTO 1.8 % (0.0-5.4); HEMATOCRIT 38.1 % (34.3-46.0); IMMATURE GRAN ABSOLUTE AUTO 0.09 K/uL (0.00-0.23); IMMATURE GRAN PERCENT AUTO 1.4 % (0.0-0.7); LYMPHOCYTES ABSOLUTE AUTO 1.75 K/uL (0.8-3.3); LYMPHOCYTES PERCENT AUTO 26.5 % (11.4-47.7); MEAN CORPUSCULAR HEMOGLOBIN 32.9 pg (31.6-35.5); MEAN CORPUSCULAR HGB CONC 34.1 g/dL (31.6-35.5); MEAN CORPUSCULAR VOLUME 96.5 fL (81.4-99.0); MONOCYTES ABSOLUTE AUTO 0.95 K/uL (0.20-0.90); MONOCYTES PERCENT AUTO 14.4 % (3.3-12.6); NEUTROPHILS ABSOLUTE AUTO 3.63 K/uL (1.0-7.6); PLATELET COUNT,PLT 476 K/uL (130-375); RED BLOOD CELL COUNT 3.95 M/uL (3.77-5.24); WHITE BLOOD CELL COUNT,WBC 6.6 K/uL (3.2-11.0)
[2024-02-11 15:01] LABS: C-REACTIVE PROTEIN 5.07 mg/dL (<0.50); CALCIUM 8.9 mg/dL (8.5-10.1); EST CRCL DRUG DOSING (CG) 34.49 mL/min; POTASSIUM,K 4.3 mmol/L (3.6-5.2); TROPONIN I HIGH SENSITIVITY 7.5 pg/mL (<=60.3)
[2024-02-11 15:02] LABS: ANION GAP 14.3 mmol/L (5.0-14.0)
[2024-02-11 15:42] VITALS: BP 132/97; PULSE 82
[2024-02-11] MEDS ORDERED: Heparin Sodium/D5W 25,000 UNITS/500 ML BAG IV SCH (16:15)
[2024-02-11] MEDS: Sodium Chloride 0.9% 60 ML IV SCH (17:07)
[2024-02-11] MEDS: Iopamidol 755 Mg/ML 100 ML Bottle IV SCH (17:07)
== END 2024-02-11 19:30 | disposition home or self-care (01) ==
LOC: JP.ED 13:09
DX: J06.9 Acute upper respiratory infection, unspecified (principal); R91.1 Solitary pulmonary nodule; I48.91 Unspecified atrial fibrillation; J44.9 Chronic obstructive pulmonary disease, unspecified; Z79.899 Other long term (current) drug therapy; Z87.891 Personal history of nicotine dependence; Z88.0 Allergy status to penicillin; Z88.2 Allergy status to sulfonamides; Z91.040 Latex allergy status; Z88.9 Allergy status to unspecified drugs, medicaments and biological substances
CPT/HCPCS: 0241U; 36415; 71046; 71275; 80048; 84145; 84484; 85025; 85379; 86140; 93005; 96360; 96361; 99285; J3490; J7040; Q9967; 93010; 99284

== ENCOUNTER 2024-06-03 11:48 | Emergency (ER) | payer MEDICARE, OTHER ==
[2024-06-03 13:08] VITALS: BP 147/90; PULSE 87
[2024-06-03] MEDS: HYDROmorphone 0.5 MG/0.5 ML Syringe IM ONE (13:45)
== END 2024-06-03 14:58 | disposition home or self-care (01) ==
LOC: JP.ED 11:48
DX: M25.511 Pain in right shoulder (principal); Z88.0 Allergy status to penicillin; Z79.899 Other long term (current) drug therapy; Z79.891 Long term (current) use of opiate analgesic; Z88.2 Allergy status to sulfonamides; Z87.891 Personal history of nicotine dependence
CPT/HCPCS: 96372; 99283

== ENCOUNTER 2024-11-03 13:43 | Emergency (ER) | payer MEDICARE, OTHER ==
[2024-11-03 15:29] LABS: BASOPHILS ABSOLUTE AUTO 0.04 K/uL (0.00-0.10); BASOPHILS PERCENT AUTO 0.5 % (0.1-1.3); EOSINOPHILS ABSOLUTE AUTO 0.22 K/uL (0.00-0.40); EOSINOPHILS PERCENT AUTO 2.6 % (0.0-5.4); IMMATURE GRAN ABSOLUTE AUTO 0.06 K/uL (0.00-0.23); IMMATURE GRAN PERCENT AUTO 0.7 % (0.0-0.7); LYMPHOCYTES ABSOLUTE AUTO 1.55 K/uL (0.8-3.3); LYMPHOCYTES PERCENT AUTO 18.0 % (11.4-47.7); MONOCYTES ABSOLUTE AUTO 0.86 K/uL (0.20-0.90); MONOCYTES PERCENT AUTO 10.0 % (3.3-12.6); NEUTROPHILS ABSOLUTE AUTO 5.86 K/uL (1.0-7.6); NEUTROPHILS PERCENT AUTO 68.2 % (40.0-78.1); PLATELET COUNT,PLT 304 K/uL (130-375); RED BLOOD CELL COUNT 3.27 M/uL (3.77-5.24); WHITE BLOOD CELL COUNT,WBC 8.6 K/uL (3.2-11.0)
[2024-11-03 15:50] LABS: A/G RATIO 0.6 (1.2-2.2); ALANINE AMINOTRANSFERASE,ALT 14 U/L (12-78); ASPARTATE AMNIOTRANSFERASE,AST 13 U/L (15-37); BILIRUBIN TOTAL 0.3 mg/dL (0.2-1.0); BLOOD UREA NITROGEN,BUN 20 mg/dL (7-18); CARBON DIOXIDE,CO2 28 mmol/L (21-32); CHLORIDE,CL 101 mmol/L (100-108); CREATININE 0.8 mg/dL (0.6-1.0); EST CRCL DRUG DOSING (CG) 36.81 mL/min; ESTIMATED GFR 72 mL/min (>60); GLUCOSE RANDOM 115 mg/dL (74-106); POTASSIUM,K 4.3 mmol/L (3.6-5.2); PROTEIN TOTAL,TP 6.8 g/dL (6.4-8.2); SODIUM,NA 136 mmol/L (140-148)
[2024-11-03 15:55] VITALS: BP 116/81; PULSE 79
== END 2024-11-03 18:13 | disposition home or self-care (01) ==
LOC: JP.ED 13:43
DX: J18.9 Pneumonia, unspecified organism (principal); I10 Essential (primary) hypertension; I48.91 Unspecified atrial fibrillation; J44.9 Chronic obstructive pulmonary disease, unspecified; Z87.891 Personal history of nicotine dependence; Z79.899 Other long term (current) drug therapy; Z79.01 Long term (current) use of anticoagulants; Z88.0 Allergy status to penicillin; Z88.2 Allergy status to sulfonamides; Z88.8 Allergy status to other drugs, medicaments and biological substances
CPT/HCPCS: 36415; 71046; 80053; 83605; 84484; 85025; 94640; 99285; A9270

== ENCOUNTER 2024-12-29 13:21 | Emergency (ER) | payer MEDICARE, OTHER ==
[2024-12-29 16:28] VITALS: BP 142/90; PULSE 67
[2024-12-29] MEDS ORDERED: Naloxone 0.4 MG/ML SDV IVPUSH PRN (18:07)
== END 2024-12-29 20:00 | disposition home or self-care (01) ==
LOC: JP.ED 13:21
DX: M48.061 Spinal stenosis, lumbar region without neurogenic claudication (principal); I48.91 Unspecified atrial fibrillation; I10 Essential (primary) hypertension; J44.9 Chronic obstructive pulmonary disease, unspecified; M19.90 Unspecified osteoarthritis, unspecified site; Z88.0 Allergy status to penicillin; Z88.2 Allergy status to sulfonamides; Z88.8 Allergy status to other drugs, medicaments and biological substances; Z79.01 Long term (current) use of anticoagulants; Z79.51 Long term (current) use of inhaled steroids; Z79.899 Other long term (current) drug therapy
CPT/HCPCS: 99283; 99284; A9270-GY

== ENCOUNTER 2025-01-27 15:45 | Inpatient (IN) | payer MEDICARE, OTHER ==
[2025-01-27] MEDS: Iopamidol 612 MG/ML 100 ML Bottle IV ONE (19:51)
[2025-01-27] MEDS: Sodium Chloride 0.9% 10 ML Syringe FLUSH ONE (19:51)
[2025-01-27 20:58] LABS: A/G RATIO 0.7 (1.2-2.2); ALANINE AMINOTRANSFERASE,ALT 14 U/L (12-78); ASPARTATE AMNIOTRANSFERASE,AST 21 U/L (15-37); BILIRUBIN TOTAL 0.6 mg/dL (0.2-1.0); BLOOD UREA NITROGEN,BUN 25 mg/dL (7-18); CARBON DIOXIDE,CO2 23 mmol/L (21-32); CHLORIDE,CL 104 mmol/L (100-108); CREATININE 1.2 mg/dL (0.6-1.0); EST CRCL DRUG DOSING (CG) 23.81 mL/min; ESTIMATED GFR 44 mL/min (>60); GLUCOSE RANDOM 114 mg/dL (74-106); POTASSIUM,K 4.1 mmol/L (3.6-5.2); PROTEIN TOTAL,TP 6.9 g/dL (6.4-8.2); SODIUM,NA 140 mmol/L (140-148)
[2025-01-27] MEDS ORDERED: Sennosides/Docusate Sodium 50-8.6 MG Tab PO PRN (22:31)
[2025-01-27] MEDS ORDERED: Magnesium Hydroxide 400 MG/5 ML Susp 30 ML Cup PO PRN (22:31)
[2025-01-27] MEDS ORDERED: Ondansetron 4 MG/2 ML SDV IV PRN (22:31)
[2025-01-27] MEDS ORDERED: Ondansetron 4 MG Tab.DIS PO PRN (22:31)
[2025-01-27] MEDS ORDERED: Naloxone 0.4 MG/ML SDV IVPUSH PRN (22:31)
[2025-01-27] MEDS ORDERED: Albuterol 0.083% 2.5 MG/3 ML Neb Soln NEB PRN (22:31)
[2025-01-27 22:42] LABS: APPEARANCE,URINE CLEAR (CLEAR); GLUCOSE,URINE NEGATIVE (NEGATIVE); OCCULT BLOOD,URINE NEGATIVE (NEGATIVE)
[2025-01-27] MEDS: Furosemide 20 MG/2 ML VIAL IVPUSH ONE (23:29)
[2025-01-27] MEDS: methylPREDNISolone Sodium Succinate 125 MG/2 ML SDV IVPUSH ONE (23:31)
[2025-01-27] MEDS: Formoterol/Mometasone 200-5 MCG 8.8 GM Inhaler INH SCH (23:43)
[2025-01-28 06:10] LABS: BASOPHILS PERCENT AUTO 0.2 % (0.1-1.3); EOSINOPHILS PERCENT AUTO 0.0 % (0.0-5.4); IMMATURE GRAN ABSOLUTE AUTO 0.04 K/uL (0.00-0.23); IMMATURE GRAN PERCENT AUTO 0.5 % (0.0-0.7); LYMPHOCYTES ABSOLUTE AUTO 0.38 K/uL (0.8-3.3); LYMPHOCYTES PERCENT AUTO 4.3 % (11.4-47.7); MONOCYTES ABSOLUTE AUTO 0.08 K/uL (0.20-0.90); MONOCYTES PERCENT AUTO 0.9 % (3.3-12.6); NEUTROPHILS ABSOLUTE AUTO 8.35 K/uL (1.0-7.6); NEUTROPHILS PERCENT AUTO 94.1 % (40.0-78.1); PLATELET COUNT,PLT 322 K/uL (130-375); RED BLOOD CELL COUNT 3.50 M/uL (3.77-5.24); WHITE BLOOD CELL COUNT,WBC 8.9 K/uL (3.2-11.0)
[2025-01-28 06:13] LABS: BASOPHILS ABSOLUTE AUTO 0.02 K/uL (0.00-0.10); EOSINOPHILS ABSOLUTE AUTO 0.00 K/uL (0.00-0.40)
[2025-01-28 07:11] LABS: BLOOD UREA NITROGEN,BUN 24 mg/dL (7-18); CARBON DIOXIDE,CO2 27 mmol/L (21-32); CHLORIDE,CL 103 mmol/L (100-108); CREATININE 1.0 mg/dL (0.6-1.0); EST CRCL DRUG DOSING (CG) 29.22 mL/min; ESTIMATED GFR 55 mL/min (>60); GLUCOSE RANDOM 149 mg/dL (74-106); POTASSIUM,K 4.9 mmol/L (3.6-5.2); SODIUM,NA 138 mmol/L (140-148)
[2025-01-28 07:12] LABS: A/G RATIO 0.6 (1.2-2.2); BILIRUBIN TOTAL 0.5 mg/dL (0.2-1.0); PROTEIN TOTAL,TP 6.8 g/dL (6.4-8.2)
[2025-01-28 07:13] LABS: ALANINE AMINOTRANSFERASE,ALT 3 U/L (12-78); ASPARTATE AMNIOTRANSFERASE,AST 31 U/L (15-37)
[2025-01-28] MEDS: Formoterol/Mometasone 200-5 MCG 8.8 GM Inhaler INH SCH (21:35)
[2025-01-28] MEDS: Sennosides/Docusate Sodium 50-8.6 MG Tab PO SCH (21:35)
[2025-01-29 05:59] LABS: PLATELET COUNT,PLT 364.0 K/uL (130-375); RED BLOOD CELL COUNT 3.18 M/uL (3.77-5.24); WHITE BLOOD CELL COUNT,WBC 10.8 K/uL (3.2-11.0)
[2025-01-29 06:21] LABS: A/G RATIO 0.7 (1.2-2.2); ALANINE AMINOTRANSFERASE,ALT 13 U/L (12-78); ASPARTATE AMNIOTRANSFERASE,AST 17 U/L (15-37); BILIRUBIN TOTAL 0.4 mg/dL (0.2-1.0); BLOOD UREA NITROGEN,BUN 27 mg/dL (7-18); CARBON DIOXIDE,CO2 27 mmol/L (21-32); CHLORIDE,CL 102 mmol/L (100-108); CREATININE 1.0 mg/dL (0.6-1.0); EST CRCL DRUG DOSING (CG) 29.22 mL/min; ESTIMATED GFR 55 mL/min (>60); GLUCOSE RANDOM 99 mg/dL (74-106); POTASSIUM,K 3.8 mmol/L (3.6-5.2); PROTEIN TOTAL,TP 6.3 g/dL (6.4-8.2); SODIUM,NA 137 mmol/L (140-148)
[2025-01-30 10:03] VITALS: BP 148/87; PULSE 95
== END 2025-01-30 11:26 | disposition home health service (06) | DRG 189 ==
LOC: JP.ED 15:45 → UNDOADMIN 19:46 → JP.ICU 19:46
PROVIDERS: ADMIT Nurse Practitioner; ATTEND Internal Medicine
PROC: 3E03329 Introduction of Other Anti-infective into Peripheral Vein, Percutaneous Approach (ICD-10-PCS; principal; 2025-01-27)
PROC: 0T9B70Z Drainage of Bladder with Drainage Device, Via Natural or Artificial Opening (ICD-10-PCS; 2025-01-30)
DX: J96.01 Acute respiratory failure with hypoxia (principal); J20.9 Acute bronchitis, unspecified; I48.91 Unspecified atrial fibrillation; I10 Essential (primary) hypertension; J44.0 Chronic obstructive pulmonary disease with (acute) lower respiratory infection; Z68.1 Body mass index [BMI] 19.9 or less, adult; I48.20 Chronic atrial fibrillation, unspecified; J44.1 Chronic obstructive pulmonary disease with (acute) exacerbation; K59.03 Drug induced constipation; R33.9 Retention of urine, unspecified; T40.2X5A Adverse effect of other opioids, initial encounter; M48.07 Spinal stenosis, lumbosacral region; K59.09 Other constipation; F02.80 Dementia in other diseases classified elsewhere, unspecified severity, without behavioral disturbance, psychotic disturbance, mood disturbance, and anxiety; G30.9 Alzheimer's disease, unspecified; R63.0 Anorexia; I27.20 Pulmonary hypertension, unspecified; Z85.118 Personal history of other malignant neoplasm of bronchus and lung; Z88.2 Allergy status to sulfonamides; Z88.8 Allergy status to other drugs, medicaments and biological substances; Z88.0 Allergy status to penicillin; Z79.51 Long term (current) use of inhaled steroids; Z79.899 Other long term (current) drug therapy; Z79.01 Long term (current) use of anticoagulants; Z79.891 Long term (current) use of opiate analgesic; Z87.01 Personal history of pneumonia (recurrent); Z86.0100 Personal history of colon polyps, unspecified; Z98.49 Cataract extraction status, unspecified eye; Z98.890 Other specified postprocedural states; Z87.891 Personal history of nicotine dependence
CPT/HCPCS: 36415; 51702; 51798; 74018; 74018-26; 74177; 74177-26; 76705; 80053; 81003; 83605; 83735; 83880; 85025; 85027; 86140; 94640; 97161-GP; 97530-GP; 99223; 99231; 99232; 99238; 99285; A9270-GY; J0456; J0696; J1938; J2919; J7030; J7050; J7512; Q9967

== ENCOUNTER 2025-02-21 13:14 | Emergency (ER) | payer MEDICARE, OTHER ==
[2025-02-21 17:35] VITALS: BP 115/75; PULSE 61
== END 2025-02-21 18:02 | disposition other institution (70) ==
LOC: JP.ED 13:14
DX: H57.13 Ocular pain, bilateral (principal)
CPT/HCPCS: 99284; A9270

== ENCOUNTER 2025-03-08 12:01 | Emergency (ER) | payer MEDICARE, OTHER ==
[2025-03-08 14:42] VITALS: BP 128/77; PULSE 74
[2025-03-08 14:43] LABS: APPEARANCE,URINE CLEAR (CLEAR); GLUCOSE,URINE NEGATIVE (NEGATIVE); OCCULT BLOOD,URINE NEGATIVE (NEGATIVE)
[2025-03-08 14:50] LABS: SQUAMOUS EPITHELIAL CELLS,UR RARE /HPF; UROTHELIAL CELLS,URINE NOT SEEN /HPF
== END 2025-03-08 15:20 | disposition home or self-care (01) ==
LOC: JP.ED 12:01
DX: T83.098A Other mechanical complication of other urinary catheter, initial encounter (principal); I48.91 Unspecified atrial fibrillation; I10 Essential (primary) hypertension; J44.9 Chronic obstructive pulmonary disease, unspecified; Z88.0 Allergy status to penicillin; Z88.2 Allergy status to sulfonamides; Z88.8 Allergy status to other drugs, medicaments and biological substances; Z79.01 Long term (current) use of anticoagulants; Z79.899 Other long term (current) drug therapy
CPT/HCPCS: 51702; 81001; 99284

== ENCOUNTER 2025-03-09 16:59 | Emergency (ER) | payer MEDICARE, OTHER ==
[2025-03-09 18:37] VITALS: BP 132/82; PULSE 63
== END 2025-03-09 18:44 ==
LOC: JP.ED 16:59
DX: R33.9 Retention of urine, unspecified (principal); I48.91 Unspecified atrial fibrillation; I10 Essential (primary) hypertension; J44.9 Chronic obstructive pulmonary disease, unspecified; Z88.0 Allergy status to penicillin; Z88.2 Allergy status to sulfonamides; Z88.8 Allergy status to other drugs, medicaments and biological substances; Z79.899 Other long term (current) drug therapy; Z79.01 Long term (current) use of anticoagulants
CPT/HCPCS: 51702; 99283